=== PATIENT | male | born 1955 | race Caucasian/White ===

== ENCOUNTER → 2017-08-27 15:52 | Outpatient (CLI) | payer OTHER, SELFPAY ==
[2017-08-27 16:37] LABS: Absolute Lymphocyte Count 2.73 X10^3/ul (0.83-4.51); Absolute Neutrophil Count 5.7 X10^3/uL (2.0-7.7); Basophil# 0.03 X10^3/uL; Basophil% 0.3 % (0-1); Eosinophil# 0.18 X10^3/uL; Eosinophils% 1.9 % (0-5); Hematocrit 43.2 % (40-54); Hemoglobin 14.9 g/dl (13.0-16.5); Lymphocyte # 2.73 X10^3/ul (4.0); Lymphocyte % 29.2 % (19-41); Mean Corp Hgb Conc 34.5 g/gl (32-36); Mean Corpuscular Volume 98.6 fL (80-94); Mean Platelet Vol. 10.4 fl (6.2-12.0); Monocyte# 0.72 X10^3/uL; Monocyte% 7.7 % (0-10); Neutrophil # 5.66 X10^3/uL (2.7-7.7); Neutrophil % 60.6 % (47-70); Platelet Count 194 K/mm3 (150-450); RBC Distribution Width CV 12.8 % (11.6-14.6); RBC Distribution Width SD 46.3 fl (35.1-43.9); Red Blood Count 4.38 M/mm3 (4.6-6.2); White Blood Count 9.4 K/mm3 (4.4-11.0)
[2017-08-27 16:42] LABS: POSITIVE COUNT NO; POSITIVE DIFFERENTIAL NO; POSITIVE MORPHOLOGY NO
[2017-08-27 17:13] LABS: ALB/GLOB Ratio 0.9 RATIO (0.9-2.4); AST(SGOT) 21 U/L (15-37); Alanine Aminotransfer ALT/SGPT 33 U/L (16-61); Albumin, Serum 3.3 g/dL (3.2-5.0); Alkaline Phosphatase 111 U/L (45-117); Anion Gap 6 (5-15); BUN 14 mg/dL (7-18); BUN/Creat Ratio 15.3 RATIO (10-20); CRP 8.87 mg/L (0.0-3.0); Calcium,Total 8.5 mg/dL (8.5-10.1); Chloride 108 mmol/L (98-107); Cholesterol 227 mg/dL (200); Creatinine, Serum 0.92 mg/dL (0.70-1.30); EST Glomerular Filtration Rate 89 mL/min (>60); Est Glom Filt Rate - Afr Amer 107 mL/min (>60); Globulin 3.6 g/dL (2.2-4.2); Glucose 82 mg/dL (74-106); High Density Lipoprotein 44 mg/dL; Lipase 81 U/L (73-393); Potassium 3.5 mmol/L (3.5-5.1); Protein, Total 6.9 g/dL (6.4-8.2); Sodium Level 141 mmol/L (136-145); Triglycerides 108 mg/dL; Very Low Density Lipoprotein 22 mg/dL (5-40)
== END ==
PROVIDERS: Family Provider Family Medicine; PCP Family Medicine; Visit Provider Family Medicine
DX: R10.13 Epigastric pain (principal); Z71.3 Dietary counseling and surveillance
CPT/HCPCS: 36415; 80053; 80061; 83690; 85025; 86140

== ENCOUNTER 2018-03-01 18:29 | Observation (INO) | payer OTHER, SELFPAY ==
[2018-03-01] VITALS (10 sets, daily range): BP systolic 102–133; BP diastolic 63–90; PULSE 70–76; RESP 18–23; TEMP 36.6–36.8; O2SAT 90–95; BMI 42.4; BMI 41.5; BMI 41.6
--- NOTE | 2018-03-01 18:45 | CT_ITS ---
CT/Spine Cervical without Contras IMPRESSION: 1. No evidence of cervical trauma. 2. Mild to moderate canal stenosis from C3-4 through C5-6. 3. Moderate to severe foraminal stenosis from C2-3 through C5-6. Electronically Signed: Joann Bass MD at 20:14 EDT Tel , Service support ,
[2018-03-01] MEDS: 0.9% Normal Saline 1,000 ML 999 ML IV ×2 (19:02→20:04)
[2018-03-01 19:03] LABS: Absolute Lymphocyte Count 2.64 X10^3/ul (0.83-4.51); Absolute Neutrophil Count 5.5 X10^3/uL (2.0-7.7); Basophil# 0.04 X10^3/uL; Basophil% 0.4 % (0-1); Eosinophils% 2.2 % (0-5); Hematocrit 41.6 % (40-54); Hemoglobin 14.7 g/dl (13.0-16.5); Lymphocyte # 2.64 X10^3/ul (4.0); Lymphocyte % 28.8 % (19-41); Mean Corp Hgb Conc 35.3 g/gl (32-36); Mean Corpuscular Hgb 35.2 pg (27.0-32.0); Mean Corpuscular Volume 99.5 fL (80-94); Mean Platelet Vol. 9.2 fl (6.2-12.0); Monocyte# 0.73 X10^3/uL; Neutrophil # 5.53 X10^3/uL (2.7-7.7); Neutrophil % 60.2 % (47-70); Platelet Count 189 K/mm3 (150-450); RBC Distribution Width CV 13.2 % (11.6-14.6); RBC Distribution Width SD 47.2 fl (35.1-43.9); Red Blood Count 4.18 M/mm3 (4.6-6.2); White Blood Count 9.2 K/mm3 (4.4-11.0)
[2018-03-01 19:09] LABS: POSITIVE COUNT NO; POSITIVE DIFFERENTIAL NO; POSITIVE MORPHOLOGY NO
[2018-03-01 19:15] LABS: Anion Gap 14 (5-15); BUN 18 mg/dL (7-18); BUN/Creat Ratio 15.1 RATIO (10-20); Calcium,Total 8.1 mg/dL (8.5-10.1); Chloride 103 mmol/L (98-107); Creatinine, Serum 1.19 mg/dL (0.70-1.30); EST Glomerular Filtration Rate 66 mL/min (>60); Est Glom Filt Rate - Afr Amer 79 mL/min (>60); Estimated Creatinine Clearance 67.67 ml/min; Glucose 101 mg/dL (74-106); Potassium 3.2 mmol/L (3.5-5.1); Sodium Level 140 mmol/L (136-145)
--- NOTE | 2018-03-01 20:40 | PCM.HP.STD ---
Problem List (1) Alcohol intoxication Status: Acute Qualifiers: Complication of substance-induced condition: with unspecified complication Qualified Code(s): F10.929 - Alcohol use, unspecified with intoxication, unspecified (2) Fall Status: Acute Qualifiers: Encounter type: initial encounter Qualified Code(s): W19.XXXA - Unspecified fall, initial encounter (3) ETOH abuse Status: Chronic (4) Tobacco use Status: Chronic (5) HTN (hypertension) Status: Chronic Qualifiers: Hypertension type: essential hypertension Qualified Code(s): I10 - Essential (primary) hypertension (6) HLD (hyperlipidemia) Status: Chronic Qualifiers: Hyperlipidemia type: pure hypercholesterolemia Qualified Code(s): E78.00 - Pure hypercholesterolemia, unspecified; E78.0 - Pure hypercholesterolemia (7) Morbid obesity Status: Chronic (8) COPD (chronic obstructive pulmonary disease) Status: Suspected Qualifiers: COPD type: unspecified COPD Qualified Code(s): J44.9 - Chronic obstructive pulmonary disease, unspecified (9) JUSTEN (obstructive sleep apnea) Status: Chronic History of Present Illness Date of Admission: 03/01/18 Chief Complaint: Fall while inebriated The patient is a 62 y/o M w/ PMHx: Morbid Obesity, HTN, HLD, Tobacco use, EtOH Abuse who presents to the [facility] ED on 03/01/18 following mechanical fall while attempting to enter his home following notable mixed drink EtOH intake with trauma to face secondary to fall. He does not recall specific events or the moment of passing out. He notes he is normally very active and works outside despite recent heat. He notes also going to the gym nearly daily to use the machines and lift weights. In the ED work-up included T 97.9, heart rate 73, BP 102/71, respiratory rate 20, 92% on room air, CBC unremarkable, BMP with potassium 3.2, troponin less than 0.015, CT brain with no acute intracranial findings, fluid in the right maxillary sinus consistent with ? occult facial fracture or acute sinusitis, evidence chronic sinusitis, T cervical spine with no evidence of cervical trauma, mild to moderate canal stenosis C3-4 through C5-C6, moderate to severe foraminal stenosis C2-3 and C5-6, chest x-ray with no acute process. In ED patient insert normal saline, DuoNeb. Discussed with ED physician and pending EtOH level and UDS. Patient with no facial pain at ? facial fracture and does admit to notable sinus issues chronically. Family notes concerns that he may have passed out versus mechanical fall. Past Medical History Past Medical History (Chronic Problems): Chronic Problems ETOH abuse (Chronic) Tobacco use (Chronic) HTN (hypertension) (Chronic) HLD (hyperlipidemia) (Chronic) Morbid obesity (Chronic) JUSTEN (obstructive sleep apnea) (Chronic) Allergies No Known Allergies Allergy (Verified 03/01/18 18:29) Home Medications: Ambulatory Orders Medication Instructions Recorded Nebivolol HCl [Bystolic (Beta 10 mg PO DAILY 03/02/16 Ag)] Olmesartan/Hydrochlorothiazide 1 tab PO DAILY 03/02/16 [Benicar Hct 40-25 MG Tablet] Pravastatin [Pravachol] 80 mg PO DAILY 03/02/16 Surgical History: - - Cholecystectomy, left knee arthroscopic surgery. Psychiatric History: No pertinent psych hx Lives: Spouse/ Significant Other Smoking Status: Current every day smoker - 1 pack per day since teenager. Tobacco Use: Cigarettes Alcohol: Heavy - Patient notes weekend drinking Sunday through Sunday with at least 6 larger heavy mixed drinks per day. Drugs: None - *Family History Maternal History Items: No pertinent history Paternal History Items: Cancer - Father with history of colon cancer. Review of Systems Constitutional: Reports: Fatigue. Denies: Chills, Fever, Weight Change HEENT: Denies: Head Aches, Sinus Congestion, Sinus Drainage Cardiovascular: Reports: Syncope. Denies: Chest Pain, Chest Pressure, Chest Tightness, Light Headedness, Palpitations Respiratory: Denies: Cough, Shortness of Breath, Shortness of breath at rest, Shortness of breath upon exertion, Sputum production Gastrointestinal: Denies: Abdominal Pain, Nausea, Vomiting Genitourinary: Denies: Dysuria Musculoskeletal: Reports: Back Pain. Denies: Joint Pain, Joint Tenderness Skin: Denies: Rash, Wounds Neurological: Denies: Numbness, Tingling, Focal weakness Psychiatric: Denies: Anxiety, Depression, Homicidal Ideations, Suicidal Ideations Hematologic/ Lymphatic: Denies: Easy Bruising, Easy Bleeding VTE Information - Inpt Only VTE Present on Admission: No VTE Mechan Device Prophylaxis: SCD's VTE Pharm Prophylaxis ordered?: Yes Patient Problems: Active and Suspected Problems Alcohol intoxication (Acute) Fall (Acute) COPD (chronic obstructive pulmonary disease) (Suspected) Subjective: Seated upright in the ED bed, no acute distress, denies any facial discomfort. Objective: Physical Examination: General: awake, alert, oriented x 3 despite intoxication, cooperative, seated upright in the ED bed in no apparent distress. Skin: normal color, turgor, no icterus, cyanosis. HEENT: AT/NC, EOMI, PERRLA, mildly dry MM, no carotid bruits or JVD noted. Lungs: Diffusely diminished BS, > BL bases, mild effort, no rales, ronchi or wheezing. Heart: Regular rate and rhythm; no gallop, rub audible. Abdomen: soft, morbidly obese, ventral hernia present, NTTP, ND, normal BS, unable to discern HSM secondary to habitus. Extremities: no cyanosis, clubbing, mild BL ankle edema, non-pitting. Neurological: patient awake, alert, oriented x 3; cognitive function despite intoxication appears intact; pupils equally reactive to light and accomodation; cranial nerves II-XII grossly normal, moving all 4 extremities, no focal deficits, strength mildly globally decreased. Psychiatric: affect appears fatigued, flushed appearance, no acute evidence of depressive or anxiety feelings. - Physical Exam Vital Signs Temp Pulse Resp BP Pulse Ox 97.9 F 74 19 H 116/90 H 93 03/01/18 18:29 03/01/18 20:28 03/01/18 20:28 03/01/18 20:28 03/01/18 20:28 Oxygen Flow Rate (L/min) 2 Oxygen Delivery Method Nasal Cannula Weight: 304 lb 3.806 oz Body Mass Index (BMI) 42.4 Laboratory Tests Past 24 Hrs 03/01/18 03/01/18 18:52 18:52 WBC 9.2 RBC 4.18 L Hgb 14.7 Hct 41.6 MCV 99.5 H MCH 35.2 H MCHC 35.3 RDW 13.2 RDW Differential 47.2 H Plt Count 189 MPV 9.2 Immature Gran % (Auto) 0.400 Neut % (Auto) 60.2 Lymph % (Auto) 28.8 [place] % (Auto) 8.0 Eos % (Auto) 2.2 Baso % (Auto) 0.4 Absolute Neuts (auto) 5.5 Absolute Lymphs (auto) 2.64 Total Counted Not Reportable Sodium 140 Potassium 3.2 L Chloride 103 Carbon Dioxide 23.0 Anion Gap 14 BUN 18 Creatinine 1.19 Estim Creat Clear Calc 67.67 Est GFR (MDRD) Af Amer 79 Est GFR (MDRD) Non-Af 66 BUN/Creatinine Ratio 15.1 Glucose 101 Calcium 8.1 L Troponin I < 0.015 Assessment/Plan All Active Problems Alcohol intoxication (Acute) Fall (Acute) The patient is a 62 y/o M w/ PMHx: Morbid Obesity, HTN, HLD, Tobacco use, EtOH Abuse who presents to the [facility] ED on 03/01/18 following mechanical fall while attempting to enter his home following notable mixed drink EtOH intake with trauma to face secondary to fall. (1) Mechanical Fall, ? Syncopal Event but Concurrent Heavy EtOH Recent Intake: Suspect likely given reported heavy EtOH, tripped with mechanical fall versus passed out. EKG without acute findings, trop normal x 1, CXR not marked. CT head and CT neck without any acute findings aside ? facial fracture but no pain w. palpation. Requested ED to obtain EtOH level and UDS. ED noting concerns for possible etiology for ? syncopal event and requested observation overnight. Will admit to [place], place on a monitored bed, cycle enzymes and repeat AM EKG although less suspicion for cardiac etiology given presentation history, aggressively hydrate, await EtOH level and UDS, maintain on fall precautions, obtain mag and phos levels and supplement as needed. Will place on CIWA for when improved from current intoxication, maintain on MVI, thiamine and folic acid. SW/CM consultation once improved for substance abuse assist. (2) Mild Hypotension: Noted upon admission, immediately improved w/ IVFs, suspect mild dehydration, heat exposure coupled with heavy recent EtOH intoxication, continue to hydrate, hold BP regimen until AM. (3) Suspected Underlying Chronic COPD: Oxygenation low normal in the ED, recent heavy EtOH intake w/ morbid obesity and underlying JUSTEN as etiology although possible underlying COPD with tobacco use history. Maintain on ATC duoneb, PRN albuterol. (4) Hypokalemia: Admission K+ 3.2, supplementation given, repeat level in AM. (5) Morbid Obesity: Weight loss and lifestyle changes encouraged, nutrition consulted. (6) Hyperlipidemia: Continue home statin regimen. (7) Hypertension: Holding regimen, monitor BPs, restart once appropriate given presentation w/ low normal BP in the ED. (8) JUSTEN: CPAP q HS. (9) DVT Prophylaxis: SCDs, defer chemoprophylaxis given possible facial fracture although as noted lower suspicion given NTTP; however, notably intoxicated, re-examination in AM may yield altered results. Code Visit OBSV E&M: 06825 Initial observation care L3
[2018-03-01] MEDS: Ipratropium/Albuterol Sulfate 3 ML AMPUL.NEB INHALATION (20:58)
--- NOTE | 2018-03-01 21:09 | ED.DCSUM_ITS ---
- ER Visit Summary Date of Service: 03/01/18 Chief Complaint: Fall History of Present Illness: The patient is a 62 M who presents after a fall at home. The patient drank 6 mixed drinks. His heard him fall, but did not witness it. Patient does not recall the fall. He was feeling well before the fall. His found him on the ground and thinks he was unconscious for up to 4 minutes. She had difficulty waking him up and called 911. The patient remembers being transported to the hospital. He said this never happened before. He has been well recently. He does drink and smoke regularly. He also has a history of hypertension and hyperlipidemia. Denies any heart or lung disease. Denies history of PE. He does not take blood thinners. Denies weakness or numbness. Denies history of seizures. Denies loss of bowel or bladder. Physical Examination: Blood pressure 102/71. Afebrile. Heart rate 73 and respiratory rate 20. Pulse ox 90% on room air. Heart regular rate and rhythm. Lungs show diminished sounds throughout all addison. No acute distress, sitting comfortably. Abdomen soft and nontender. Extremities atraumatic and nontender. Head and neck normal inspection. Nontender. Cranial nerves grossly intact. No focal or lateralizing neurologic abnormalities grossly. Test Results: EKG showed sinus rhythm at a rate of 73. No sign of acute ischemia or infarction pattern. Chest x-ray showed no acute abnormality. CT brain and C-spine showed no intracranial changes. He does have right maxillary fluid concerning for fracture versus sinusitis. Patient has no tenderness, so I suspect he has sinusitis. He has been dealing with sinus symptoms recently. C-spine was unremarkable. Chronic changes only. CBC and BMP unremarkable except for a potassium of 3.2. Troponin normal. Emergency Department Course and Treatment: Patient was placed on a monitor. Treated with a DuoNeb. He had no further symptoms or loss of consciousness. His workup as above was fairly unremarkable. He did have a transient hypotension which resolved with IV fluids. Patient reports no history of hypotension. Patient has a pulse ox of 90% which improved with 2 L nasal cannula. Patient denies any history of lung disease. His lung sounds were fairly quiet. He was treated with a DuoNeb. He does not have chest pain. No history of ACS or PE. Patient was discussed with the hospitalist who will admit for further care. She did request a urine drug screen and alcohol level. Results are pending at the time of this dictation. Treatment Plan: As above Disposition: Admission Impression: 1. Syncope This note was generated with [employer] dictation software. It may contain incorrect words, spelling, and punctuation that were not noted in review of the chart prior to signing ED Disposition - Plan for ED Patient: Chief Complaint: Fall
[2018-03-01 21:59] LABS: Magnesium 2.1 mg/dL (1.6-2.6); Phosphorus 3.5 mg/dL (2.5-4.9)
[2018-03-01] MEDS: Famotidine 20 MG Tablet PO (22:29)
[2018-03-01 22:45] LABS: Amphetamine Urine VISTA NEGATIVE (<1000 ng/mL); Barbiturate Urine VISTA NEGATIVE (< 200 ng/mL); Benzodiazepine Urine VISTA NEGATIVE (< 200 ng/mL); Cocaine Urine VISTA NEGATIVE (< 300 ng/mL); Ecstacy Urine VISTA NEGATIVE (< 500 ng/mL); Methadone Urine VISTA NEGATIVE (< 300 ng/mL); PCP Urine VISTA NEGATIVE (< 25 ng/mL); THC Urine VISTA NEGATIVE (< 50 ng/mL); Vista UDS pH Range 6
[2018-03-01] MEDS: 0.9% Normal Saline 1,000 ML 150 ML IV (23:51)
[2018-03-02 03:15] VITALS: BP 143/75; PULSE 40; PULSE 73; RESP 18; TEMP 37; O2SAT 95
[2018-03-02 03:38] VITALS: PULSE 85
[2018-03-02 04:33] LABS: Absolute Lymphocyte Count 2.35 X10^3/ul (0.83-4.51); Absolute Neutrophil Count 7.1 X10^3/uL (2.0-7.7); Basophil# 0.05 X10^3/uL; Basophil% 0.5 % (0-1); Eosinophil# 0.18 X10^3/uL; Eosinophils% 1.7 % (0-5); Hematocrit 43.7 % (40-54); Hemoglobin 14.6 g/dl (13.0-16.5); Lymphocyte # 2.35 X10^3/ul (4.0); Lymphocyte % 22.7 % (19-41); Mean Corp Hgb Conc 33.4 g/gl (32-36); Mean Corpuscular Hgb 35.1 pg (27.0-32.0); Mean Platelet Vol. 9.3 fl (6.2-12.0); Monocyte# 0.67 X10^3/uL; Monocyte% 6.5 % (0-10); Neutrophil # 7.09 X10^3/uL (2.7-7.7); Neutrophil % 68.3 % (47-70); Platelet Count 167 K/mm3 (150-450); RBC Distribution Width CV 13.8 % (11.6-14.6); RBC Distribution Width SD 52.6 fl (35.1-43.9); Red Blood Count 4.16 M/mm3 (4.6-6.2); White Blood Count 10.4 K/mm3 (4.4-11.0)
[2018-03-02 04:34] LABS: POSITIVE COUNT NO; POSITIVE DIFFERENTIAL NO; POSITIVE MORPHOLOGY NO
[2018-03-02 05:04] LABS: Anion Gap 11 (5-15); BUN 14 mg/dL (7-18); BUN/Creat Ratio 16.9 RATIO (10-20); Calcium,Total 7.6 mg/dL (8.5-10.1); Chloride 114 mmol/L (98-107); Creatinine, Serum 0.83 mg/dL (0.70-1.30); EST Glomerular Filtration Rate 100 mL/min (>60); Est Glom Filt Rate - Afr Amer 121 mL/min (>60); Estimated Creatinine Clearance 97.02 ml/min; Glucose 77 mg/dL (74-106); Potassium 4.1 mmol/L (3.5-5.1); Sodium Level 144 mmol/L (136-145)
[2018-03-02] MEDS: 0.9% Normal Saline 1,000 ML 150 ML IV (05:59)
[2018-03-02 06:47] VITALS: PULSE 84; RESP 20; O2SAT 96
[2018-03-02] MEDS: Ipratropium/Albuterol Sulfate 3 ML AMPUL.NEB INHALATION (06:47)
[2018-03-02 07:17] VITALS: PULSE 85
[2018-03-02 07:49] VITALS: BP 145/75; PULSE 79; RESP 20; TEMP 36.8; O2SAT 98
[2018-03-02] MEDS: Thiamine Hydrochloride 100 MG Tablet PO (07:52)
[2018-03-02] MEDS: Multivitamins,Ther W-Minerals Tablet 1 TABLET PO (07:52)
[2018-03-02] MEDS: Famotidine 20 MG Tablet PO (07:52)
[2018-03-02] MEDS: Folic Acid 1 MG Tablet PO (07:52)
--- NOTE | 2018-03-02 08:17 | CASEMGMT ---
As per admitting RN, pt refused to bring in POA or LW forms.
--- NOTE | 2018-03-02 10:41 | CASEMGMT ---
SW spoke w/pt and pt's briefly in room regarding alcohol use, referral received for substance abuse. SW asked pt about pt's alcohol consumption. Pt and both deny that pt has any issue with alcohol. states, it was Sunday night! Pt states he is independent at home, no homegoing needs. Pt is stating that he would like to go home today. SW explained will let physician know. Otherwise, no homegoing needs anticipated, pt denies any issue with alcohol as does . SW will page physician. BETSY Rodriguez, WATCHGUARD
--- NOTE | 2018-03-02 11:39 | PCM.DC ---
- Discharge Diagnoses Current Active Problems: Current Active and Chronic Problems Alcohol intoxication (Acute) Fall (Acute) ETOH abuse (Chronic) Tobacco use (Chronic) HTN (hypertension) (Chronic) HLD (hyperlipidemia) (Chronic) Morbid obesity (Chronic) JUSTEN (obstructive sleep apnea) (Chronic) You will use the following diet at home:: No restrictions, Regular Discharge Activity: Return to Normal Activity, No Restrictions Additional Instructions: drink alcohol in moderation Allergies/Adverse Reactions: Allergies No Known Allergies Allergy (Verified 03/01/18 18:29) Medications to take at Discharge Nebivolol HCl [Bystolic (Beta Ag)] 10 mg PO DAILY 03/02/16 Olmesartan/Hydrochlorothiazide [Benicar Hct 40-25 MG Tablet] 1 tab PO DAILY 03/02/16 Pravastatin [Pravachol] 80 mg PO DAILY 03/02/16 Thiamine HCl [Vitamin B-1] 100 mg PO DAILY #30 tab 03/02/18 The following prescriptions were given: Thiamine HCl [Vitamin B-1] 100 mg PO DAILY #30 tab Primary Care Physician: Saturnino Wilson MD [Primary Care Provider] - Test Results: Test results from this visit will be discussed in further detail at your follow-up appointment, if applicable. Proposed Discharge Date: 03/02/18
--- NOTE | 2018-03-02 11:42 | PCM.DC.SUM ---
Discharge Date and Diagnosis - Problem List Patient Problems: Active and Suspected Problems Alcohol intoxication (Acute) Fall (Acute) COPD (chronic obstructive pulmonary disease) (Suspected) Date of Admission: 03/01/18 Date of Discharge: 03/02/18 - Primary Discharge Diagnosis Active and Suspected Problems Alcohol intoxication (Acute) Fall (Acute) COPD (chronic obstructive pulmonary disease) (Suspected) - Secondary Discharge Diagnosis Chronic Problems ETOH abuse (Chronic) Tobacco use (Chronic) HTN (hypertension) (Chronic) HLD (hyperlipidemia) (Chronic) Morbid obesity (Chronic) JUSTEN (obstructive sleep apnea) (Chronic) Hospital Course and Treatment Operations: None Procedures: None Summary of Care Provided: The patient is a 62 year old M admitted to the hospital following and fall and/or passing out while intoxicated with alcohol. Alcohol blood level on presentation was 210mg/dl Today patient is no longer intoxicated, is doing fairly well and is quite anxious to go home Ok for discharge Cellophaner on alcohol use with moderation [] Discharge Activity: Return to Normal Activity, No Restrictions Home Medications: Medications to take at Discharge Nebivolol HCl [Bystolic (Beta Ag)] 10 mg PO DAILY 03/02/16 Olmesartan/Hydrochlorothiazide [Benicar Hct 40-25 MG Tablet] 1 tab PO DAILY 03/02/16 Pravastatin [Pravachol] 80 mg PO DAILY 03/02/16 Thiamine HCl [Vitamin B-1] 100 mg PO DAILY #30 tab 03/02/18 Following Prescrptions Were Given to Patient: Thiamine HCl [Vitamin B-1] 100 mg PO DAILY #30 tab Primary Care Physician: Saturnino Wilson MD [Primary Care Provider] - Medical Necessity - Tobacco Use Smoking Status: Current every day smoker Tobacco Use: Cigarettes Meaningful Use Info Meaningful Use Diagnoses (Choose all that apply): None applicable Code Visit OBSV E&M: 06812 Observation care discharge
[2018-03-02 11:46] VITALS: PULSE 70
== END 2018-03-02 12:08 | disposition home or self-care (01) ==
LOC: ED 18:49 → MS3 21:06
PROVIDERS: Admitting Provider Family Medicine; Emergency Provider Emergency Medicine; Family Provider Family Medicine; PCP Family Medicine; Visit Provider Internal Medicine
DX: F10.129 Alcohol abuse with intoxication, unspecified (principal); Y90.7 Blood alcohol level of 200-239 mg/100 ml; I10 Essential (primary) hypertension; E78.5 Hyperlipidemia, unspecified; E66.01 Morbid (severe) obesity due to excess calories; Z68.41 Body mass index [BMI] 40.0-44.9, adult; Z71.3 Dietary counseling and surveillance; G47.33 Obstructive sleep apnea (adult) (pediatric); F17.210 Nicotine dependence, cigarettes, uncomplicated; I95.9 Hypotension, unspecified; E87.6 Hypokalemia; Z91.81 History of falling; Z79.899 Other long term (current) drug therapy
CPT/HCPCS: 36415; 70450; 71045; 72125; 80048; 80307; 80320; 83735; 84100; 84484; 85025; 93005; 94640; 96360; 96361; 97802; 99218; 99285; J7030; A4216; G0378; G0480

== ENCOUNTER → 2018-03-06 12:01 | Outpatient (CLI) | payer OTHER, SELFPAY ==
[2018-03-06 15:03] LABS: Anion Gap 9 (5-15); BUN 15 mg/dL (7-18); BUN/Creat Ratio 16.3 RATIO (10-20); Calcium,Total 8.7 mg/dL (8.5-10.1); Chloride 106 mmol/L (98-107); Creatinine, Serum 0.92 mg/dL (0.70-1.30); EST Glomerular Filtration Rate 88 mL/min (>60); Est Glom Filt Rate - Afr Amer 106 mL/min (>60); Glucose 98 mg/dL (74-106); Potassium 3.7 mmol/L (3.5-5.1); Sodium Level 137 mmol/L (136-145)
== END ==
PROVIDERS: Family Provider Family Medicine; PCP Family Medicine; Visit Provider Family Medicine
DX: E87.6 Hypokalemia (principal)
CPT/HCPCS: 36415; 80048; 83735

== ENCOUNTER → 2018-06-14 09:18 | Outpatient (CLI) | payer OTHER, SELFPAY ==
[2018-03-01 21:21] VITALS: BMI 41.5
[2018-06-14 10:14] LABS: Absolute Lymphocyte Count 1.87 X10^3/ul (0.83-4.51); Absolute Neutrophil Count 6.4 X10^3/uL (2.0-7.7); Basophil# 0.05 X10^3/uL; Basophil% 0.5 % (0-1); Eosinophil# 0.16 X10^3/uL; Eosinophils% 1.7 % (0-5); Hematocrit 47.9 % (40-54); Lymphocyte # 1.87 X10^3/ul (4.0); Lymphocyte % 20.1 % (19-41); Mean Corp Hgb Conc 33.4 g/gl (32-36); Mean Corpuscular Hgb 33.7 pg (27.0-32.0); Mean Corpuscular Volume 100.8 fL (80-94); Monocyte# 0.82 X10^3/uL; Monocyte% 8.8 % (0-10); Neutrophil # 6.37 X10^3/uL (2.7-7.7); Neutrophil % 68.6 % (47-70); Platelet Count 194 K/mm3 (150-450); RBC Distribution Width CV 12.6 % (11.6-14.6); RBC Distribution Width SD 46.8 fl (35.1-43.9); Red Blood Count 4.75 M/mm3 (4.6-6.2); White Blood Count 9.3 K/mm3 (4.4-11.0)
[2018-06-14 10:15] LABS: POSITIVE COUNT NO; POSITIVE DIFFERENTIAL NO; POSITIVE MORPHOLOGY NO
[2018-06-14 10:42] LABS: ALB/GLOB Ratio 1.1 RATIO (0.9-2.4); AST(SGOT) 18 U/L (15-37); Alanine Aminotransfer ALT/SGPT 31 U/L (16-61); Albumin, Serum 3.7 g/dL (3.2-5.0); Alkaline Phosphatase 114 U/L (45-117); Anion Gap 8 (5-15); BUN 22 mg/dL (7-18); BUN/Creat Ratio 22.3 RATIO (10-20); Calcium,Total 8.9 mg/dL (8.5-10.1); Chloride 106 mmol/L (98-107); Creatinine, Serum 0.99 mg/dL (0.70-1.30); EST Glomerular Filtration Rate 81 mL/min (>60); Est Glom Filt Rate - Afr Amer 98 mL/min (>60); Globulin 3.3 g/dL (2.2-4.2); Glucose 97 mg/dL (74-106); Sodium Level 142 mmol/L (136-145)
--- OUTSIDE RECORDS SUMMARY | 2018-07-30 22:33 | XMS RPT_ITS ---
:1955 Author Organization OHIP Support Name Relationship Address Phone KAREN DESAI Unavailable [address] + [place] [address] R Unavailable Unavailable Unavailable DESAI, KAREN Unavailable [address] + [place] [address] R Unavailable Unavailable Unavailable DESAI, KAREN Unavailable [address] + [place] [address] R Unavailable Unavailable Unavailable DESAI, KAREN Unavailable [address] + [place] [address] R Unavailable Unavailable Unavailable DESAI, KAREN Unavailable [address] + [place] [address] R Unavailable Unavailable Unavailable DESAI, KAREN Unavailable [address] + [place] [address] R Unavailable Unavailable Unavailable DESAI, KAREN Unavailable [address] + [place] [address] R Unavailable Unavailable Unavailable DESAI, KAREN Unavailable [address] + [place] [address] R Unavailable Unavailable Unavailable DESAI, KAREN Unavailable [address] + [place] [address] R Unavailable Unavailable Unavailable DESAI, KAREN Unavailable [address] + [place] [address] R Unavailable Unavailable Unavailable DESAI, KAREN Unavailable [address] + [place] [address] R Unavailable Unavailable Unavailable DESAI, KAREN Unavailable [address] + [place] [address] R Unavailable Unavailable Unavailable Care Team Providers Name Role Phone Saturnino Wilson Attending Unavailable Saturnino Wilson Primary Care Unavailable Saturnino Wilson Attending Unavailable Saturnino Wilson Primary Care Unavailable Saturnino Wilson Attending Unavailable Saturnino Wilson Referring Unavailable Wilson, Saturnino Primary Care Unavailable Wilson, Saturnino Primary Care Unavailable Gil Edmond Attending Unavailable Nurse, Surgery Attending Unavailable Wilson, Saturnino Referring Unavailable Catarino Herbert Attending Unavailable Wilson, Saturnino Referring Unavailable Wilson, Saturnino Attending Unavailable Wilson, Saturnino Primary Care Unavailable Wilson, Saturnino Primary Care Unavailable White, Juliann Admitting Unavailable Oleghe, Ifijen Attending Unavailable White, Juliann Admitting Unavailable White, Juliann Attending Unavailable Wilson, Saturnino Primary Care Unavailable White, Juliann Consulting Unavailable White, Juliann Admitting Unavailable Wilson, Saturnino Primary Care Unavailable Oleghe, Ifijen Consulting Unavailable Lillian Kaufman Attending Unavailable Wilson, Saturnino Attending Unavailable Wilson, Saturnino Primary Care Unavailable Moodena, Brandon Attending Unavailable White, Juliann Referring Unavailable PROBLEMS PROBLEMS DATE TYPE CONDITION / CODE ATTENDING STATUS SOURCE 03/06/2018 Unknown E87.6 - Hypokalemia / Saturnino Wilson Active [place] E87.6(ICD-10) [facility] Repository 04/09/2018 Unknown R94.31 - Abnormal [place], Active [place] electrocardiogram [facility] [ECG] [EKG] / Hospital R94.31(ICD-10) Repository 04/09/2018 Unknown I10 - Essential [place], Active [place] (primary) hypertension [facility] / I10(ICD-10) Hospital Repository 04/09/2018 Unknown R55 - Syncope and [place], Active [place] collapse / R55(ICD-10) [facility] Repository PROCEDURES PROCEDURES No Procedure Records FoundRESULTS RESULTS SURGERY VISIT REPORT Observed: 07/17/2018 Status: F Source: [place] 9:24 AM [facility] [address] [place] [address] [address] [place] [address] OFFICE VISIT Date of Service: 07/17/18 MR#: [id number] Acct: [id number] Name: LLOYDMAISHA J Rep #: [id number] : 1955 Provider: Catarino Herbert MD Age/Sex: 62/M Location: [facility] Status: Signed Intake Vital Signs07/17/18 Body Mass Index (BMI) 41.1 07/17/18 Height 5 ft 10 in 07/17/18 Weight: 302 lb 07/17/18 Body Mass Index (BMI) 43.3 Intake Visit Reasons: Umbilical Hernia AND Refulx Chief Complaint: Passed out per my Design Quality Engineer Required: No Is patient in pain?: No Allergies No Known Allergies Allergy (Verified 07/17/18 08:29) Medications Nebivolol HCl [Bystolic (Beta Ag)] 10 mg PO DAILY 03/02/16 [History Confirmed 07/17/18] Olmesartan/Hydrochlorothiazide [Benicar Hct 40-25 MG Tablet] 1 tab PO DAILY 03/02/16 [History Confirmed 07/17/18] Pravastatin [Pravachol] 80 mg PO DAILY 03/02/16 [History Confirmed 07/17/18] famotidine 40 mg tablet 40 mg PO DAILY 07/17/18 [History Confirmed 07/17/18] [facility] Medical History Alcohol intoxication (Acute) Fall (Acute) ETOH abuse (Chronic) Tobacco use (Chronic) HTN (hypertension) (Chronic) HLD (hyperlipidemia) (Chronic) Morbid obesity (Chronic) COPD (chronic obstructive pulmonary disease) (Suspected) JUSTEN (obstructive sleep apnea) (Chronic) Surgical History History of esophagogastroduodenoscopy (EGD) (Acute) S/P appendectomy (Acute) S/P colonoscopy (Acute) S/P laparoscopic cholecystectomy (Acute) Family History Father Colon cancer Grandmother Heart disease Social History Smoking Status: Current some day smoker alcohol intake: current alcohol intake frequency: a few times a week HPI HPI HPI: MAISHA DESAI, is a 62 M who presents to the office today for surgical consultation regarding severe epigastric pain and suspected escalating symptoms of reflux. He is currently on famotidine. Claims that remotely in the past he has had Nexium treatment. He states he has not had that for a period of time. He also had a recent CT scan done at the [facility] showing a small incisional umbilical hernia. March 09, 2016 for biliary dyskinesia and chronic cholecystitis I performed a laparoscopic cholecystectomy and cholangiogram. The patient states that this pain is different. It is of note that March 02, 2016 I performed a colonoscopy trying to evaluate right upper quadrant pain. A 2.5 similar sessile polyp of the proximal transverse colon was encountered as well as sigmoid and descending diverticulosis. Polypectomy was done as well as in the ink marking. The final pathology was fragments of tubular adenoma. It is of additional note that previously December 17, [address] Damon Gillespie the patient had an upper endoscopy. Apparently by report there was a nodule at the GE junction that Dr. Gillespie biopsied. This was felt to be consistent with reflux esophagitis focal mucosal ulceration with associated fibro-purulent material no fungal evidence no evidence of malignancy. On questioning the patient he states that he only smokes 3- 4 cigarettes/day. He states that he infrequently uses alcohol. There is report however of a CT of the chest and abdomen obtained July 08, 2018. No aneurysm or dissection of the aorta was identified. He previously July 2017 had imaging done at the [facility] because of a alcohol intoxicated fall. He states that he goes to [employer] 6 times per week. He claims that he is trying to lose weight. Current body habitus is 43.3 BMI at 302 pounds The patient is referred by his primary care physician Dr. Saturnino Wilson for surgical consultation regarding suspected intractable gastroesophageal reflux disease and a written copy of my surgical consult and recommendations will be returned to him. ROS General General: Yes weight change; no appetite, fatigue, colon cancer, breast cancer or weakness HEENT HEENT: Yes difficulty swallowing; no eye injury, eye surgery, swollen glands or hoarseness Endo Endocrine: No thyroid disease, diabetes mellitus, thyroid cancer, Hair loss, heat intolerance or cold intolerance Skin Skin: No rash or changing moles Breast Breast: No left breast lump, right breast lump, nipple discharge, breast pain, abnormal mammogram, abnormal US or breast enlargement Musc Musculoskeletal: Yes back problems; no arthritis, rheumatoid arthritis, gout or joint pain Cardio Cardiovascular: Yes high blood pressure; no murmur, pacemaker, heart disease, atrial fibrillation, heart attack, heart stent, palpitations, shortness of breat with exertion or chest pain Psych Psychiatric: No depression, anxiety or hearing voices Resp Respiratory: Yes shortness of breath, Yes sleep apnea, No cough, No COPD, No asthma, No emphysema, No wheezing Gastro Gastrointestinal: Yes abdominal pain, Yes nausea or vomiting, Yes diarrhea, Yes constipation, Yes acid reflux, Yes gallbladder problem, No blood in stool, No hemorrhoids, No ulcers, No black,tarry stools Maksim Hematologic: No blood thinners, No blood disorders, No bleeding, No anemia, No blood clots Neuro Neurologic: No system reviewed and no additional complaints, except as docu, No as per HPI, No abnormal walking, No abnormal hearing, No abnormal movements, No abnormal speech, No behavioral changes, No burning sensations, No confusion, No seizure-like activity, No unsteadiness, No dizziness, No localized weakness, No frequent falls, No headache(s), No lack of coordination, No loss of vision, No memory loss, No numbness, No other visual disturbances, No radiating pain, No restless legs, No sensory deficit, No fainting, No tingling, No tremor(s), No weakness, No other Exam Const General: cooperative, no acute distress Nutritional Appearance: obese morbidly obese Orientation: alert, awake, oriented x3 HENMT Head: normal to inspection Chest Breast Palpation: No nipple discharge Resp Effort AND Inspection: normal respiratory effort Auscultation: clear to auscultation bilaterally Cardio Rate: regular rate Rhythm: regular rhythm Heart Sounds: no murmurs GI Other: Markedly overweight with a very large abdomen. With the patient standing small defect cannot be palpated at his umbilical incision. Nontender. Reducible Skin Other: Mild facial blushing noted Neuro General: alert, awake, oriented x3 Psych Affect: normal affect Assessment AND Plan Problems 1. GERD with esophagitis K21.0 2. Personal history of colonic polyps Z86.010 Plan 62-year-old gentleman. 2016 he had an upper endoscopy done by Dr. Damon Gillespie demonstrating a nodule at the distal esophagus with biopsies consistent with severe reflux esophagitis. Although the patient currently is on famotidine he finds no relief. He states that he has tried additional antacids with no relief. He additionally has a history of a 2.5 cm proximal transverse colon tubular adenoma. That colonoscopy was March 2016. He is morbidly obese caring majority of his weight in his abdomen. He has a small recurrent ventral incisional hernia at the umbilicus related to a previous laparoscopic cholecystectomy. It is not symptomatic. I have reviewed his CT imaging and there is no bowel underneath. He likely has a large portion of the omentum beneath that area. It is not likely with his body habitus and tobacco use that a solid repair could be obtained. I am recommending weight loss and general health improvement. The patient states that his current alcohol consumption is minimal. I would have ongoing concerns. I recommend to him a esophagogastroduodenoscopy with possible biopsy with very careful inspection of the distal esophagus at the EG junction. I am recommending a colonoscopy with possible biopsy or polypectomy is indicated. I would anticipate performing this under monitored anesthesia care anticipating increased difficulty secondary to the suspected alcohol use. He has had an opting to ask and have questions answered. We will schedule and proceed as noted. I appreciate the ongoing opportunity of assisting with his surgical care. CC: Dr. Saturnino Herbert M.D., F.A.C.S. Coding Level of Care Code Detailed, Low Diagnoses GERD with esophagitis K21.0 Personal history of colonic polyps Z86.010 07/17/18923 <Electronically signed by Catarino Herbert MD> Date Catarino Herbert MD Cosigner Signature: Date (if applicable) CC: Saturnino Wilson MD 12 LEAD ELECTROCARDIOGRAM Observed: 07/10/2018 Status: F Source: [place] 2:35 PM [facility] Cardiovascular Services [address] [place] [address] 12 Lead EKG 07/08/18923 MR#: [id number] Acct: [id number] Name: MAISHA DESAI Rep #: [id number] : 1955 62 From: Brandon Simmons MD Attending Dr: Status: DEP ER Ordering Dr: Gil Edmond MD Date: 07/08/18 Location: ED Sex: M C Admitted: Test Reason : CP Blood Pressure : / mmHG Vent. Rate : 076 BPM Atrial Rate : 076 BPM P-R Int : 162 ms QRS Dur : 090 ms QT Int : 390 ms P-R-T Axes : 047 037 028 degrees QTc Int : 438 ms Normal sinus rhythm Nonspecific ST abnormality Abnormal ECG Confirmed by TROY BROWN, BRANDON ([id number]), makeup editor TOBI DESAI ([id number]) on 07/10/2018 2:34:52 PM Referred By: Saturnino Wilson Confirmed By:BRANDON SIMMONS MD 07/10/18 1434 Date Brandon Simmons MD CC: Gil Edmond MD; Saturnino iWlson MD Signed EMERGENCY DEPARTMENT Observed: 07/08/2018 Status: F Source: [place] SUMMARY 5:07 PM [facility] Medical Records Department [address] [place] [address] Emergency Department Summary 07/08/18 1145 MR#: [id number] Acct: [id number] Name: MAISHA DESAI Rep #: [id number] : 1955 62 From: Gil Edmond MD PCP: Saturnino Wilson MD Status: DEP ER - ER Visit Summary Date of Service: 07/08/18 Chief Complaint: Feel rough History of Present Illness: The patient is a 62 M who feels rough today. He says he has pain in his left shoulder that started today. He denies any chest pain or shortness of breath. He does have epigastric pain that has been going on for months. He had a prior CT which was unremarkable. He feels weak and nauseated. Denies diaphoresis. Patient has a history of a stress test about 2 years ago. He said it was normal. He does bicycle about 9 miles per day. He has felt weak and has not been able to bicycle today. He does have a history of COPD, hypertension, hyperlipidemia, and sleep apnea. Physical Examination: Blood pressure 177/102. Otherwise vitals unremarkable. 93% on room air. Alert and oriented. No acute distress. Heart regular rate and rhythm. Lungs clear. Abdomen soft and nontender. Extremities nontender with no edema. He has good range of motion. Neurovascular intact distally. Skin appears normal. Test Results: EKG showed sinus rhythm at a rate of 76. No sign of ischemia or infarction. CBC, CMP, hepatic panel, lipase unremarkable. Chest x-ray shows bibasilar atelectasis. Emergency Department Course and Treatment: Patient declined pain medicine here. He was treated with Zofran. He was monitored. No new or different symptoms. Patient has very atypical symptoms, but does have many risk factors for heart disease. He had a normal stress test. I advised that the complete workup would involve admission. Patient declined admission. He would like to follow-up with his doctor. Nothing consistent with PE or dissection. No infectious symptoms. No trauma. I suspect his shoulder pain is myofascial pain. No indication for further testing. On reevaluation, the patient said that he felt a pulsing in his epigastric area. He had prior calcifications in his aorta. CTA was performed. He has chronic changes and an enlarged thyroid but no aneurysm or dissection. He will be discharged to follow-up with his doctor. Treatment Plan: As above Disposition: Discharge Impression: 1. Epigastric pain 2. Left shoulder pain 3. Enlarged thyroid This note was generated with [employer] dictation software. It may contain incorrect words, spelling, and punctuation that were not noted in review of the chart prior to signing ED Disposition - Plan for ED Patient: Chief Complaint: Upper Extremity Injury Instructions: ED Epigastric Pain [facility] Referrals: Saturnino Wilson MD [Primary Care Provider] - What to do if you have Problems For any increased pain, shortness of breath, bleeding, nausea or vomiting, chest pain, or any unexpected problems, contact your Primary Care Provider. Call [facility] ([phone]) or report to the closest Emergency Room. Call 911 if necessary. 07/08/18 7714 <Electronically signed by Gil Edmond MD> Date Gil Edmond MD Cosigner Signature (If Indicated): Date CC: Saturnino Wilson MD DISCHARGE INSTRUCTION Observed: 07/08/2018 Status: F Source: [place] 5:07 PM [facility] Medical Records Department [address] [place] [address] [place] [address] Discharge Instruction 07/08/18 1150 MR#: [id number] Acct: [id number] Name: MAISHA DESAI Rep #: [id number] : 1955 62 From: Gil Edmond MD PCP: Saturnino Wilson MD Status: [facility] ER ED Disposition - Plan for ED Patient: Chief Complaint: Upper Extremity Injury Instructions: ED Epigastric Pain [facility] Referrals: Saturnino Wilson MD [Primary Care Provider] - What to do if you have Problems For any increased pain, shortness of breath, bleeding, nausea or vomiting, chest pain, or any unexpected problems, contact your Primary Care Provider. Call [facility] ([phone]) or report to the closest Emergency Room. Call 911 if necessary. 07/08/18 1707 <Electronically signed by Gil Edmond MD> Date Gil Edmond MD Cosigner Signature (If Indicated): Date CC: Saturnino Wilson MD CTA ABDOMEN W/WO Observed: 07/08/2018 Status: F Source: [place] CONTRAST 11:56 AM [facility] Imaging Services [address] [place] [address] CTA Abdomen W/WO Contrast MR#: [id number] Acct: [id number] Name: MAISHA DESAI Rep #: [id number] : 1955 M 62 From: Gianluca Vila MD PCP: Saturnino Wilson MD Status: [facility] ER Study: CTA Abdomen W/WO Contrast Date of Exam: 07/08/18 Exam# [id number] Ordering Dr: Gil Edmond MD STUDY: CTA OF THE ABDOMINAL AORTA REASON FOR EXAM: Male, 62 years old. History of abdominal aortic aneurysm. The patient presents with left shoulder pain and epigastric pain. RADIATION DOSAGE (If Supplied By Facility): CTDIvol = ( 38.91 ) mGy, DLP = ( 1674.58 ) mGycm TECHNIQUE: Axial CT angiography multi-detector data acquisition was obtained from the dome of the liver to the symphysis pubis following intravenous administration of 100 ml of Isovue 370 contrast. Axial images and MIP images were reconstructed from the axial data set. Post-processing of the angiographic images was performed, with multiplanar reformation and 3D reconstruction. Individualized dose optimization techniques were used for this CT. TECHNICAL QUALITY: Good COMPARISON: None. Descriptors of Narrowing: None (0%) Mild (< 50%) Moderate (50-70%) Severe (70-90%) Subtotal/Total Occlusion (90-100%) Non-Evaluable (technically non-diagnostic FINDINGS: Abdominal aorta: Atherosclerotic plaque formation of the abdominal aorta. There is no evidence of aneurysmal formation. No evidence of a dissection. Nonstenotic calcified plaques at the origins of the celiac artery and superior mesenteric artery. The patient is status post cholecystectomy. Small retroperitoneal lymph nodes. Small umbilical hernia. Degenerative disc disease of the lumbar spine. CT/CTA Abdomen W/WO Contrast IMPRESSION: Scattered calcification of the abdominal aorta with no evidence of aneurysm formation. Electronically Signed: Gianluca Vila MD at 12:42 EST Tel [phone], Service support , CC: Gil Edmond MD; Saturnino Wilson MD Production Line Operator: Signed CTA CHEST W/WO Observed: 07/08/2018 Status: F Source: [place] CONTRAST 11:56 AM [facility] Imaging Services [address] [place] [address] CTA Chest W/WO Contrast MR#: [id number] Acct: [id number] Name: MAISHA DESAI Rep #: [id number] : 1955 M 62 From: Gianluca Vila MD PCP: Saturnino Wilson MD Status: [facility] ER Study: CTA Chest W/WO Contrast Date of Exam: 07/08/18 Exam# [id number] Ordering Dr: Gil Edmond MD STUDY: CTA CHEST REASON FOR EXAM: Male, 62 years old. History of thoracic aortic aneurysm. Patient presents with a history of left shoulder pain. No known injury. RADIATION DOSAGE (If Supplied By Facility): CTDIvol = ( 38.91 ) mGy, DLP = ( 1674.58 ) mGycm TECHNIQUE: The examination was performed with the intravenous administration of 100 ml of Isovue 370 contrast material. Post-processing of the angiographic images was performed, with multiplanar reformation and 3D reconstruction. Individualized dose optimization techniques were used for this CT. COMPARISON: None. FINDINGS: Mild enlargement of the thyroid gland more prominent on the right side. Benign appearing bilateral axillary lymph nodes. Normal enhancement of the main pulmonary artery and right and left pulmonary arteries. Normal enhancement of the bilateral peripheral pulmonary arteries. There is no demonstrated pulmonary embolism. There is atherosclerotic calcification of the aortic arch with tortuosity. There is no demonstrated aortic dissection. There are calcifications of the coronary arteries. There are visualized mediastinal lymph nodes, which are within normal size limits, and with normal morphology. Normal hilar regions. Normal visualized trachea and bronchi. The lungs are well expanded. Subpleural blebs are seen in the lateral superior aspect of the right upper lobe suggestive of bronchial scarring. There is also evidence of a several small subpleural blebs in the left lung apex. Mild degree of increased markings at the lung bases suggestive of bibasilar atelectasis and/or scarring. Normal pleura. Normal chest wall structures. There are degenerative changes of thoracic spine. Normal visualized upper abdomen. CT/CTA Chest W/WO Contrast IMPRESSION: There is no evidence of aortic dissection. Findings suggestive of mild atelectasis and/or scarring at the lung bases as well as in the upper lobes. Enlargement of the thyroid gland. Electronically Signed: Gianluca Vila MD at 12:46 EST Tel [phone], Service support , CC: Gil Edmond MD; Saturnino Wilson MD Production Line Operator: Signed CBC W/DIFF, AUTOMATED Collected: 07/08/2018 Status: F Source: [place] 9:50 AM [facility] TYPE CODE TESTS RESULT OUT OF RANGE REFERENCE UNITS LAB L100.1000 4.4-11.0 K/mm3 Normal WBC 9.5 LAB L100.1200 4.6-6.2 M/mm3 Normal RBC 4.71 LAB L100.1300 13.0-16.5 g/dl Normal HGB 16.0 LAB L100.1400 40-54 % Normal HCT 46.7 LAB L100.1500 80-94 fL High MCV 99.2 LAB L100.1600 27.0-32.0 pg High MCH 34.0 LAB L100.1700 32-36 g/gl Normal MCHC 34.3 LAB L100.1810 11.6-14.6 % Normal RDW CV 12.8 LAB L100.1820 35.1-43.9 fl High RDW SD 46.7 LAB L100.1900 150-450 K/mm3 Normal PLT 179 LAB L100.2000 6.2-12.0 fl Normal MPV 9.8 LAB L100.2100 47-70 % High NEUT% 70.7 LAB L100.2200 19-41 % Normal LY% 19.3 LAB L100.2300 0-10 % Normal MONO% 8.3 LAB L100.2400 0-5 % Normal EO% 1.1 LAB L100.2500 0-1 % Normal BASO% 0.3 LAB L100.2550 0.0-0.9 % Normal IM GRAN % 0.300 Result Comment: IG% - Immature Granulocytes (promyelocytes, myelocytes and metamyelocytes) > 1% indicates that a LEFT SHIFT is Present. LAB L100.2620 2.0-7.7 X10 3/uL Normal Absolute Neut 6.7 LAB L100.2720 0.83-4.51 X10 3/ul Normal Absolute Lymph 1.84 Performed By: #### L100.0100 #### [facility] [place], [address] COMPREHENSIVE METABOLIC Collected: 07/08/2018 Status: F Source: [facility] 9:50 AM [facility] TYPE CODE TESTS RESULT OUT OF RANGE REFERENCE UNITS LAB L501.0100 74-106 mg/dL High GLU 117 Result Comment: Fasting Glucose result from 100 to 125 mg/dL suggests IMPAIRED HOMEOSTASIS per A.D.A. criteria. Please note revised GLUCOSE reference range effective 2017. LAB L501.1000 7-18 mg/dL High BUN 24 LAB L501.1100 0.70-1.30 mg/dL Normal CREAT,SERUM 1.22 Result Comment: The validity of the calculated GFR AND GFRAA in patients over 70 years has not been determined. Clinical correlation is essential. LAB L501.1110 >60 mL/min Normal EST GFR 64 Result Comment: Non- GFR Calc LAB L501.1115 >60 mL/min Normal EST GFR - AA 77 Result Comment: GFR Calc LAB L501.1255 ml/min Normal Estimated CRCL 63.99 LAB L501.1300 10-20 RATIO Normal BUN/CRE 19.7 LAB L501.1500 6.4-8. g/dL Normal 2 T PROT 7.1 LAB L501.1800 3.2-5. g/dL Normal 0 ALB 3.5 LAB L501.1950 2.2-4. g/dL Normal 2 GLOB 3.6 LAB L501.2000 0.9-2. RATIO Normal 4 A/G 1.0 LAB L501.2200 8.5-10 mg/dL Low .1 CA 8.4 LAB L501.4100 15-37 U/L Normal AST 33 LAB L501.4305 45-117 U/L High ALK P 123 LAB L501.4405 16-61 U/L High ALT 65 LAB L501.4600 0.20-1 mg/dL Normal .00 T BILI 0.60 LAB L501.5300 136-14 mmol/L Normal 5 NA 140 LAB L501.5600 3.5-5. mmol/L Normal 1 K 4.1 LAB L501.5900 98-107 mmol/L Normal CL 107 LAB L501.6100 21.0-3 mmol/L Normal 2.0 CO2 26.0 LAB L501.6200 5-15 Normal GAP 7 Performed By: #### L500.4050, L501.2450, L501.4010 #### [facility] [address] [place], [address] LIPASE Collected: 07/08/2018 Status: F Source: [place] 9:50 AM [facility] [place] TYPE CODE TESTS RESULT OUT OF RANGE REFERENCE UNITS LAB L501.2450 73-393 U/L Normal LIPASE 98 Performed By: #### L500.4050, L501.2450, L501.4010 #### [facility] [address] [facility] [place], [address] TROPONIN-I Collected: 07/08/2018 Status: F Source: [place] 9:50 AM [facility] [place] TYPE CODE TESTS RESULT OUT OF RANGE REFERENCE UNITS LAB L501.4010 <0.045 ng/mL Normal < 0.015 TROPONIN-I Result Comment: TROPONIN-I EXPECTED VALUES <0.045 Negative 0.045 - 0.590 Consistent with Cardiac Damage > OR = 0.600 Critical Value Not every elevated troponin is indicative of AL. These values should be used with clinical judgement in examining the patient's clinical picture for diagnosis. To establish a diagnosis of AL versus myocardial injury, there must be a demonstrated rise and/or fall in the troponin values, in addition to ischemic symptoms, EKG changes, new regional wall motion abnormality, and/or angiographical evidence. PLEASE NOTE: REFERENCE RANGES EDITED 17 Performed By: #### L500.4050, L501.2450, L501.4010 #### [facility] [address] [facility] [place], [address] CHEST 1 VIEW Observed: 07/08/2018 Status: F Source: [place] (PORTABLE) 9:39 AM [facility] [place] [facility] Imaging Services [address] [facility] [place] [address] Chest 1 View (Portable) MR#: [id number] Acct: [id number] Name: MAISHA DESAI Rep #: [id number] : 1955 M 62 From: Gianluca Vila MD PCP: Saturnino Wilson MD Status: [facility] ER Study: Chest 1 View (Portable) Date of Exam: 07/08/18 Exam# [id number] Ordering Dr: Gil Edmond MD STUDY: X-RAY CHEST REASON FOR EXAM: Male, 62 years old. Chest pain and arm pain. TECHNIQUE: Single AP portable view of the chest. COMPARISON: Comparison is made with prior study dated March 01, 2018. FINDINGS: EKG electrodes are seen. Mild increased markings at the lung bases suggestive of atelectasis. There is no demonstrated pleural abnormality. There is mild cardiac enlargement. Normal mediastinum and raul. Normal visualized pulmonary arteries. There is atherosclerotic tortuosity of the aortic arch and descending thoracic aorta. Normal visualized thoracic spine. Normal visualized ribs, clavicles, and shoulders. There is no demonstrated abnormality of the visualized soft tissue structures of the upper abdomen. RAD/Chest 1 View (Portable) IMPRESSION: Mild increased markings at the lung bases suggestive of mild bibasilar atelectasis. Electronically Signed: Gianluca Vila MD at 10:48 EST Tel [phone], Service support , CC: Gil Edmond MD; Saturnino Wilson MD Production Line Operator: Signed ABDOMEN WITHOUT IV Observed: 06/22/2018 Status: F Source: [place] CONTRAST 8:53 AM [facility] Imaging Services [address] [place] [address] Abdomen without IV Contrast MR#: [id number] Acct: [id number] Name: MAISHA DESAI Rep #: [id number] : 1955 M 62 From: Santos Lopez MD PCP: Saturnino Wilson MD Status: REG CLI Study: Abdomen without IV Contrast Date of Exam: 06/22/18 Exam# [id number] Ordering Dr: Saturnino Wilson MD STUDY: CT ABDOMEN WITHOUT CONTRAST REASON FOR EXAM: Male, 62 years old. Epigastric pain x5 months. History of cholecystectomy. RADIATION DOSAGE (If Supplied By Facility): CTDIvol = ( 24.17 ) mGy, DLP = ( 938.63 ) mGycm TECHNIQUE: Transaxial images were obtained without intravenous contrast, and without oral contrast. Sagittal and coronal images were reconstructed. Individualized dose optimization techniques were used for this CT. COMPARISON: 2 AP supine films of the abdomen and pelvis March 02, 2016; abdominal ultrasound November 04, 2015. FINDINGS: The visualized lung bases are unremarkable. The visualized portions of the heart are within normal limits. Some portions of the liver, predominantly the superior posterior right lobe, show decreased density could reflect a degree of regional fatty infiltration. No defined focal hepatic mass, however. The portal vein diameter is 14 mm. There is non-visualization of the gallbladder, which may be secondary to either contraction or a prior cholecystectomy. The common bile duct diameter is roughly 5 mm. Normal spleen. Normal pancreas. Normal bilateral adrenal glands. Normal right kidney. There is focal scarring in the anterolateral upper pole of the left kidney. No hydronephrosis. Normal visualized stomach. Normal small intestine. There are occasional colonic diverticula consistent with diverticulosis. There are calcifications in the region of the appendix consistent with a prior appendectomy. There is moderate atherosclerotic calcification of the abdominal aorta and proximal iliac arteries, without a demonstrated aneurysm. The aortic diameter at its distal third is 2.3 x 2.2 cm. Normal inferior vena cava. There are several periaortic retroperitoneal lymph nodes that are upper normal in size. There is a small umbilical hernia containing fat. There are diffuse spondylotic degenerative changes of the visualized spine. Posterior endplate osteophytes impinging on the spinal canal noted at T9-10, T10-11, and L2-3. There are degenerative arthrosis of the visualized sacroiliac joints with anterior osseous bridging on the left. CT/Abdomen without IV Contrast IMPRESSION: 1. No clearly demonstrated source of patient's complaint. 2. Nonvisualized gallbladder, which may be surgically absent. 3. Occasional colonic diverticula without acute diverticulitis. No sign of bowel obstruction or suspicious bowel wall thickening. The appendix is surgically absent. 4. Moderate aortoiliac atherosclerotic calcific plaquing. There is no demonstrated aneurysm, the findings potential risk for future cardiovascular event, Abdominal Aortic Calcific Deposits Are an Important Predictor of Vascular Morbidity and Mortality; Evelio Wolfe, et al. Circulation, Aug 2000;103:2111-0306. 5. Small, fat-containing umbilical hernia. 6. Degenerative changes of the spine and sacroiliac joints. Electronically Signed: Alex Lopez MD at 9:18 EST , Service support , CC: Saturnino Wilson MD Production Line Operator: Signed H. PYLORI STOOL AG Collected: 06/18/2018 Status: F Source: [place] 12:00 AM [facility] [place] TYPE CODE TESTS RESULT OUT OF RANGE REFERENCE UNITS LAB L3100.1950 Negative Normal H PYLORI Negative STL AG Result Comment: Performed at: [facility] [address] [id number] Drawing In Hand: Cherri Carson MD, Phone: [phone] Performed By: #### L3100.1950 #### [facility] (refer to report for specific site) refer to report for address and phone number CBC W/DIFF, AUTOMATED Collected: 06/14/2018 Status: F Source: [place] 9:18 AM [facility] [place] TYPE CODE TESTS RESULT OUT OF RANGE REFERENCE UNITS LAB L100.1000 4.4-11.0 K/mm3 Normal WBC 9.3 LAB L100.1200 4.6-6.2 M/mm3 Normal RBC 4.75 LAB L100.1300 13.0-16.5 g/dl Normal HGB 16.0 LAB L100.1400 40-54 % Normal HCT 47.9 LAB L100.1500 80-94 fL High MCV 100.8 LAB L100.1600 27.0-32.0 pg High MCH 33.7 LAB L100.1700 32-36 g/gl Normal MCHC 33.4 LAB L100.1810 11.6-14.6 % Normal RDW CV 12.6 LAB L100.1820 35.1-43.9 fl High RDW SD 46.8 LAB L100.1900 150-450 K/mm3 Normal PLT 194 LAB L100.2000 6.2-12.0 fl Normal MPV 10.0 LAB L100.2100 47-70 % Normal NEUT% 68.6 LAB L100.2200 19-41 % Normal LY% 20.1 LAB L100.2300 0-10 % Normal MONO% 8.8 LAB L100.2400 0-5 % Normal EO% 1.7 LAB L100.2500 0-1 % Normal BASO% 0.5 LAB L100.2550 0.0-0.9 % Normal IM GRAN % 0.300 Result Comment: IG% - Immature Granulocytes (promyelocytes, myelocytes and metamyelocytes) > 1% indicates that a LEFT SHIFT is Present. LAB L100.2620 2.0-7.7 X10 3/uL Normal Absolute Neut 6.4 LAB L100.2720 0.83-4.51 X10 3/ul Normal Absolute Lymph 1.87 Performed By: #### L100.0100 #### [facility] [address] [place], [address] COMPREHENSIVE METABOLIC Collected: 06/14/2018 Status: F Source: [facility] 9:18 AM [facility] [place] TYPE CODE TESTS RESULT OUT OF RANGE REFERENCE UNITS LAB L501.0100 74-106 mg/dL Normal GLU 97 Result Comment: Please note revised GLUCOSE reference range effective 2017. LAB L501.1000 7-18 mg/dL High BUN 22 LAB L501.1100 0.70-1.30 mg/dL Normal CREAT,SERUM 0.99 Result Comment: The validity of the calculated GFR AND GFRAA in patients over 70 years has not been determined. Clinical correlation is essential. LAB L501.1110 >60 mL/min Normal EST GFR 81 Result Comment: Non- GFR Calc LAB L501.1115 >60 mL/min Normal EST GFR - AA 98 Result Comment: GFR Calc LAB L501.1300 10-20 RATIO High BUN/CRE 22.3 LAB L501.1500 6.4-8.2 g/dL T Normal PROT 7.0 LAB L501.1800 3.2-5.0 g/dL Normal ALB 3.7 LAB L501.1950 2.2-4.2 g/dL Normal GLOB 3.3 LAB L501.2000 0.9-2.4 RATIO Normal A/G 1.1 LAB L501.2200 8.5-10.1 mg/dL CA Normal 8.9 LAB L501.4100 15-37 U/L Normal AST 18 LAB L501.4305 45-117 U/L Normal ALK P 114 LAB L501.4405 16-61 U/L Normal ALT 31 LAB L501.4600 0.20-1.00 mg/dL T Normal BILI 0.60 LAB L501.5300 136-145 mmol/L NA Normal 142 LAB L501.5600 3.5-5.1 mmol/L K Normal 4.0 LAB L501.5900 98-107 mmol/L CL Normal 106 LAB L501.6100 21.0-32.0 mmol/L Normal CO2 28.0 LAB L501.6200 5-15 Normal GAP 8 Performed By: #### L500.4050 #### [facility] [address] [facility] [place], [address] 12 LEAD ELECTROCARDIOGRAM Observed: 03/06/2018 Status: F Source: [place] 1:18 PM [facility] [place] Cardiovascular Services [address] [place] [address] 12 Lead EKG 03/02/18 0507 MR#: [id number] Acct: [id number] Name: MAISHA DESAI Mirna Rep #: [id number] : 1955 62 From: Brandon Simmons MD Attending Dr: Luis Eduardo Jones M.D. Status: DIS JAMIE Ordering Dr: Juliann Marroquin Date: 03/02/18 [place] [facility] [place] Sex: M C Admitted: 03/01/18 Test Reason : AM EKG Blood Pressure : / mmHG Vent. Rate : 075 BPM Atrial Rate : 075 BPM P-R Int : 200 ms QRS Dur : 090 ms QT Int : 390 ms P-R-T Axes : 064 056 017 degrees QTc Int : 435 ms Normal sinus rhythm with sinus arrhythmia Low voltage QRS (limb leads) Confirmed by TROY BROWN, BRANDON ([id number]), makeup editor TOBI DESAI ([id number]) on 03/06/2018 1:18:04 PM Referred By: CARA Confirmed By:BRANDON SIMMONS MD 03/06/18 1318 Date Brandon Simmons MD CC: Juliann Marroquin; Saturnino Wilson MD; Luis Eduardo Jones M.D. Signed BASIC METABOLIC Collected: 03/06/2018 Status: F Source: [place] PROFILE (BMP) 12:03 PM [facility] TYPE CODE TESTS RESULT OUT OF RANGE REFERENCE UNITS LAB L501.0100 74-106 mg/dL Normal GLU 98 Result Comment: Please note revised GLUCOSE reference range effective 2017. LAB L501.1000 7-18 mg/dL Normal BUN 15 LAB L501.1100 0.70-1.30 mg/dL Normal CREAT,SERUM 0.92 Result Comment: The validity of the calculated GFR AND GFRAA in patients over 70 years has not been determined. Clinical correlation is essential. LAB L501.1110 >60 mL/min Normal EST GFR 88 Result Comment: Non- GFR Calc LAB L501.1115 >60 mL/min Normal EST GFR - AA 106 Result Comment: GFR Calc LAB L501.1300 10-20 RATIO Normal BUN/CRE 16.3 LAB L501.2200 8.5-10.1 mg/dL CA Normal 8.7 LAB L501.5300 136-145 mmol/L NA Normal 137 LAB L501.5600 3.5-5.1 mmol/L K Normal 3.7 LAB L501.5900 98-107 mmol/L CL Normal 106 LAB L501.6100 21.0-32.0 mmol/L Normal CO2 22.0 LAB L501.6200 5-15 Normal GAP 9 Performed By: #### L500.2500, L501.5200 #### [facility] [address] [place], [place], [address] MAGNESIUM Collected: 03/06/2018 Status: F Source: [place] 12:03 PM [facility] [place] TYPE CODE TESTS RESULT OUT OF RANGE REFERENCE UNITS LAB L501.5200 1.6-2.6 mg/dL Normal MG 2.0 Performed By: #### L500.2500, L501.5200 #### [facility] [address] [place], [address] 12 LEAD ELECTROCARDIOGRAM Observed: 03/05/2018 Status: F Source: [place] 1:52 PM [facility] Cardiovascular Services [address] [place] [address] 12 Lead EKG 03/01/18 1854 MR#: [id number] Acct: [id number] Name: MAISHA DESAI Rep #: [id number] : 1955 62 From: Gil Melendez MD Attending Dr: Luis Eduardo Jones M.D. Status: DIS JAMIE Ordering Dr: Gil Edmond MD Date: 03/01/18 [place] [facility] [place] Sex: M C Admitted: 03/01/18 Test Reason : FALL Blood Pressure : / mmHG Vent. Rate : 073 BPM Atrial Rate : 073 BPM P-R Int : 184 ms QRS Dur : 102 ms QT Int : 408 ms P-R-T Axes : 042 047 -01 degrees QTc Int : 449 ms Normal sinus rhythm Low voltage QRS Borderline ECG Confirmed by GIL MELENDEZ ([id number]), makeup editor TOBI DESAI ([id number]) on 03/05/2018 1:51:43 PM Referred By: AMY Confirmed By:GIL MELENDEZ 03/05/18 1351 Date Gil Melendez MD CC: Gil Edmond MD; Saturnino Wilson MD; Luis Eduardo Jones M.D. Signed DISCHARGE SUMMARY Observed: 03/02/2018 Status: F Source: [place] 11:46 AM [facility] [place] [facility] Medical Records Department [address] [place] [address] Discharge Summary 03/02/18 1142 MR#: [id number] Acct: [id number] Name: MAISHA DESAI Rep #: [id number] : 1955 62 From: Luis Eduardo Jones MD PCP: Saturnino Wilson MD Status: ADM JAMIE Y [place] [facility] [place] [id number] Discharge Date and Diagnosis - Problem List Patient Problems: Active and Suspected Problems Alcohol intoxication (Acute) Fall (Acute) COPD (chronic obstructive pulmonary disease) (Suspected) Date of Admission: 03/01/18 Date of Discharge: 03/02/18 - Primary Discharge Diagnosis Active and Suspected Problems Alcohol intoxication (Acute) Fall (Acute) COPD (chronic obstructive pulmonary disease) (Suspected) - Secondary Discharge Diagnosis Chronic Problems ETOH abuse (Chronic) Tobacco use (Chronic) HTN (hypertension) (Chronic) HLD (hyperlipidemia) (Chronic) Morbid obesity (Chronic) JUSTEN (obstructive sleep apnea) (Chronic) Hospital Course and Treatment Operations: None Procedures: None Summary of Care Provided: The patient is a 62 year old M admitted to the hospital following and fall and/or passing out while intoxicated with alcohol. Alcohol blood level on presentation was 210mg/dl Today patient is no longer intoxicated, is doing fairly well and is quite anxious to go home Ok for discharge Mat Gauger on alcohol use with moderation [] Discharge Activity: Return to Normal Activity, No Restrictions Home Medications: Medications to take at Discharge Nebivolol HCl [Bystolic (Beta Ag)] 10 mg PO DAILY 03/02/16 Olmesartan/Hydrochlorothiazide [Benicar Hct 40-25 MG Tablet] 1 tab PO DAILY 03/02/16 Pravastatin [Pravachol] 80 mg PO DAILY 03/02/16 Thiamine HCl [Vitamin B-1] 100 mg PO DAILY #30 tab 03/02/18 Following Prescrptions Were Given to Patient: Thiamine HCl [Vitamin B-1] 100 mg PO DAILY #30 tab Primary Care Physician: Saturnino Wilson MD [Primary Care Provider] - Medical Necessity - Tobacco Use Smoking Status: Current every day smoker Tobacco Use: Cigarettes Meaningful Use Info Meaningful Use Diagnoses (Choose all that apply): None applicable Code Visit OBSV Patrice AND M: [id number] Observation care discharge 03/02/18 1146 <Electronically signed by Luis Eduardo Jones MD> Date Luis Eduardo Jones MD Cosigner Signature (if applicable): Date CC: Saturnino Wilson MD; Luis Eduardo Jones M.D. Signed DISCHARGE INSTRUCTION Observed: 03/02/2018 Status: F Source: [place] 11:41 AM [facility] Medical Records Department [address] [place] [address] Instructions for Home/Discharge Instructions 03/02/18 1139 MR#: [id number] Acct: [id number] Name: MAISHA DESAI Rep #: [id number] : 1955 62 From: Luis Eduardo Jones MD PCP: Saturnino Wilson MD Status: ADM JAMIE - Discharge Diagnoses Current Active Problems: Current Active and Chronic Problems Alcohol intoxication (Acute) Fall (Acute) ETOH abuse (Chronic) Tobacco use (Chronic) HTN (hypertension) (Chronic) HLD (hyperlipidemia) (Chronic) Morbid obesity (Chronic) JUSTEN (obstructive sleep apnea) (Chronic) You will use the following diet at home:: No restrictions, Regular Discharge Activity: Return to Normal Activity, No Restrictions Additional Instructions: drink alcohol in moderation Allergies/Adverse Reactions: Allergies No Known Allergies Allergy (Verified 03/01/18 18:29) Medications to take at Discharge Nebivolol HCl [Bystolic (Beta Ag)] 10 mg PO DAILY 03/02/16 Olmesartan/Hydrochlorothiazide [Benicar Hct 40-25 MG Tablet] 1 tab PO DAILY 03/02/16 Pravastatin [Pravachol] 80 mg PO DAILY 03/02/16 Thiamine HCl [Vitamin B-1] 100 mg PO DAILY #30 tab 03/02/18 The following prescriptions were given: Thiamine HCl [Vitamin B-1] 100 mg PO DAILY #30 tab Primary Care Physician: Saturnino Wilson MD [Primary Care Provider] - Test Results: Test results from this visit will be discussed in further detail at your follow-up appointment, if applicable. Proposed Discharge Date: 03/02/18 03/02/18 1141 <Electronically signed by Luis Eduardo Jones MD> Date Luis Eduardo Jones MD CC: Saturnino Wilson MD CBC W/DIFF, AUTOMATED Collected: 03/02/2018 Status: F Source: [place] 4:10 AM [facility] [place] TYPE CODE TESTS RESULT OUT OF RANGE REFERENCE UNITS LAB L100.1000 4.4-11.0 K/mm3 Normal WBC 10.4 LAB L100.1200 4.6-6.2 M/mm3 Low RBC 4.16 LAB L100.1300 13.0-16.5 g/dl Normal HGB 14.6 LAB L100.1400 40-54 % Normal HCT 43.7 LAB L100.1500 80-94 fL High MCV 105.0 LAB L100.1600 27.0-32.0 pg High MCH 35.1 LAB L100.1700 32-36 g/gl Normal MCHC 33.4 LAB L100.1810 11.6-14.6 % Normal RDW CV 13.8 LAB L100.1820 35.1-43.9 fl High RDW SD 52.6 LAB L100.1900 150-450 K/mm3 Normal PLT 167 LAB L100.2000 6.2-12.0 fl Normal MPV 9.3 LAB L100.2100 47-70 % Normal NEUT% 68.3 LAB L100.2200 19-41 % Normal LY% 22.7 LAB L100.2300 0-10 % Normal MONO% 6.5 LAB L100.2400 0-5 % Normal EO% 1.7 LAB L100.2500 0-1 % Normal BASO% 0.5 LAB L100.2550 0.0-0.9 % Normal IM GRAN % 0.300 Result Comment: IG% - Immature Granulocytes (promyelocytes, myelocytes and metamyelocytes) > 1% indicates that a LEFT SHIFT is Present. LAB L100.2620 2.0-7.7 X10 3/uL Normal Absolute Neut 7.1 LAB L100.2720 0.83-4.51 X10 3/ul Normal Absolute Lymph 2.35 Performed By: #### L100.0100 #### [facility] [address] [place], [address] BASIC METABOLIC Collected: 03/02/2018 Status: F Source: [place] PROFILE (BMP) 4:10 AM [facility] [place] TYPE CODE TESTS RESULT OUT OF RANGE REFERENCE UNITS LAB L501.0100 74-106 mg/dL Normal GLU 77 Result Comment: Please note revised GLUCOSE reference range effective 2017. LAB L501.1000 7-18 mg/dL Normal BUN 14 LAB L501.1100 0.70-1.30 mg/dL Normal CREAT,SERUM 0.83 Result Comment: The validity of the calculated GFR AND GFRAA in patients over 70 years has not been determined. Clinical correlation is essential. LAB L501.1110 >60 mL/min Normal EST GFR 100 Result Comment: Non- GFR Calc LAB L501.1115 >60 mL/min Normal EST GFR - AA 121 Result Comment: GFR Calc LAB L501.1255 ml/min Normal Estimated CRCL 97.02 LAB L501.1300 10-20 RATIO Normal BUN/CRE 16.9 LAB L501.2200 8.5-10 mg/dL Low .1 CA 7.6 LAB L501.5300 136-14 mmol/L Normal 5 NA 144 LAB L501.5600 3.5-5. mmol/L Normal 1 K 4.1 LAB L501.5900 98-107 mmol/L High CL 114 LAB L501.6100 21.0-3 mmol/L Low 2.0 CO2 19.0 LAB L501.6200 5-15 Normal GAP 11 Performed By: #### L500.2500 #### [facility] [address] [place], [address] TROPONIN-I Collected: 03/02/2018 Status: F Source: [place] 4:10 AM [facility] Order Comment: 'TROP' Serial specimen #1, #2 or #3: 3 TYPE CODE TESTS RESULT OUT OF RANGE REFERENCE UNITS LAB L501.4010 <0.045 ng/mL Normal < 0.015 TROPONIN-I Result Comment: TROPONIN-I EXPECTED VALUES <0.045 Negative 0.045 - 0.590 Consistent with Cardiac Damage > OR = 0.600 Critical Value Not every elevated troponin is indicative of AL. These values should be used with clinical judgement in examining the patient's clinical picture for diagnosis. To establish a diagnosis of AL versus myocardial injury, there must be a demonstrated rise and/or fall in the troponin values, in addition to ischemic symptoms, EKG changes, new regional wall motion abnormality, and/or angiographical evidence. PLEASE NOTE: REFERENCE RANGES EDITED 17 Performed By: #### L501.4010 #### [facility] [address] [place], [address] EMERGENCY DEPARTMENT Observed: 03/01/2018 Status: F Source: [place] SUMMARY 11:38 PM [facility] Medical Records Department [address] [place] [address] Emergency Department Summary 03/01/18 2105 MR#: [id number] Acct: [id number] Name: MAISHA DESAI Rep #: [id number] : 1955 62 From: Gil Edmond MD PCP: Saturnino Wilson MD Status: ADM JAMIE - ER Visit Summary Date of Service: 03/01/18 Chief Complaint: Fall History of Present Illness: The patient is a 62 M who presents after a fall at home. The patient drank 6 mixed drinks. His heard him fall, but did not witness it. Patient does not recall the fall. He was feeling well before the fall. His found him on the ground and thinks he was unconscious for up to 4 minutes. She had difficulty waking him up and called 911. The patient remembers being transported to the hospital. He said this never happened before. He has been well recently. He does drink and smoke regularly. He also has a history of hypertension and hyperlipidemia. Denies any heart or lung disease. Denies history of PE. He does not take blood thinners. Denies weakness or numbness. Denies history of seizures. Denies loss of bowel or bladder. Physical Examination: Blood pressure 102/71. Afebrile. Heart rate 73 and respiratory rate 20. Pulse ox 90% on room air. Heart regular rate and rhythm. Lungs show diminished sounds throughout all addison. No acute distress, sitting comfortably. Abdomen soft and nontender. Extremities atraumatic and nontender. Head and neck normal inspection. Nontender. Cranial nerves grossly intact. No focal or lateralizing neurologic abnormalities grossly. Test Results: EKG showed sinus rhythm at a rate of 73. No sign of acute ischemia or infarction pattern. Chest x-ray showed no acute abnormality. CT brain and C-spine showed no intracranial changes. He does have right maxillary fluid concerning for fracture versus sinusitis. Patient has no tenderness, so I suspect he has sinusitis. He has been dealing with sinus symptoms recently. C-spine was unremarkable. Chronic changes only. CBC and BMP unremarkable except for a potassium of 3.2. Troponin normal. Emergency Department Course and Treatment: Patient was placed on a monitor. Treated with a DuoNeb. He had no further symptoms or loss of consciousness. His workup as above was fairly unremarkable. He did have a transient hypotension which resolved with IV fluids. Patient reports no history of hypotension. Patient has a pulse ox of 90% which improved with 2 L nasal cannula. Patient denies any history of lung disease. His lung sounds were fairly quiet. He was treated with a DuoNeb. He does not have chest pain. No history of ACS or PE. Patient was discussed with the hospitalist who will admit for further care. She did request a urine drug screen and alcohol level. Results are pending at the time of this dictation. Treatment Plan: As above Disposition: Admission Impression: 1. Syncope This note was generated with [employer] dictation software. It may contain incorrect words, spelling, and punctuation that were not noted in review of the chart prior to signing ED Disposition - Plan for ED Patient: Chief Complaint: Fall What to do if you have Problems For any increased pain, shortness of breath, bleeding, nausea or vomiting, chest pain, or any unexpected problems, contact your Primary Care Provider. Call [facility] ([phone]) or report to the closest Emergency Room. Call 911 if necessary. 03/01/18 7184 <Electronically signed by Gil Edmond MD> Date Gil Edmond MD Cosigner Signature (If Indicated): Date CC: Saturnino Wilson MD TROPONIN-I Collected: 03/01/2018 Status: F Source: [place] 10:20 PM [facility] Order Comment: 'TROP' Serial specimen #1, #2 or #3: 2 TYPE CODE TESTS RESULT OUT OF RANGE REFERENCE UNITS LAB L501.4010 <0.045 ng/mL Normal < 0.015 TROPONIN-I Result Comment: TROPONIN-I EXPECTED VALUES <0.045 Negative 0.045 - 0.590 Consistent with Cardiac Damage > OR = 0.600 Critical Value Not every elevated troponin is indicative of AL. These values should be used with clinical judgement in examining the patient's clinical picture for diagnosis. To establish a diagnosis of AL versus myocardial injury, there must be a demonstrated rise and/or fall in the troponin values, in addition to ischemic symptoms, EKG changes, new regional wall motion abnormality, and/or angiographical evidence. PLEASE NOTE: REFERENCE RANGES EDITED 17 Performed By: #### L501.4010 #### [facility] [address] [place], [address] URINE DRUG SCREEN Collected: 03/01/2018 Status: F Source: MALINI (Venafi) 10:00 PM [facility] Order Comment: List of Drugs Taken or Suspected? UNK TYPE CODE TESTS RESULT OUT OF RANGE REFERENCE UNITS LAB L505.0075 TO BE Normal CONFIRMED Result Comment: CONFIRMATORY TESTING FOR ALL POSITIVE URINE DRUG SCREEN RESULTS WILL ONLY BE SENT OUT UPON PHYSICIAN ORDER. VISTA Urine Drug Screen methods provide only preliminary analytical test results. A more specific alternate chemical method must be used in order to obtain a confirmed analytical result. Gas chromatography/mass spectrometery (GC/MS) is the preferred confirmatory method. Clinical consideration and professional judgement should be applied to any drug of abuse test result, particularly when preliminary positive results are used. URINE TCA TESTING MUST BE ORDERED SEPARATELY. USE TEST MNEMONIC: [facility] LAB L505.5005 VISTA UDS PH 6 Normal LAB L505.5015 <1000 ng/mL AMPHETAMINES Normal NEGATIVE LAB L505.5025 < 200 ng/mL BARBITIURATES Normal NEGATIVE LAB L505.5035 < 200 ng/mL BENZODIAZIPINE Normal NEGATIVE LAB L505.5045 < 300 ng/mL COCAINE Normal NEGATIVE LAB L505.5055 < 500 ng/mL ECSTACY Normal NEGATIVE LAB L505.5065 < 300 ng/mL METHADONE Normal NEGATIVE LAB L505.5075 < 300 ng/mL OPIATES Normal NEGATIVE LAB L505.5085 < 25 ng/mL PCP Normal NEGATIVE LAB L505.5095 < 50 ng/mL THC Normal NEGATIVE Performed By: #### L505.5000 #### [facility] [address] [place], [address] HISTORY AND PHYSICAL Observed: 03/01/2018 Status: F Source: [place] EXAM 9:09 PM [facility] Medical Records Department [address] [place] [address] History and Physical 03/01/182039 MR#: [id number] Acct: [id number] Name: MAISHA DESAI Rep #: [id number] : 1955 62 From: Juliann Marroquin PCP: Saturnino Wilson MD Status: ADM JAMIE Y Location: [place] [address] Problem List (1) Alcohol intoxication Status: Acute Qualifiers: Complication of substance-induced condition: with unspecified complication Qualified Code(s): F10.929 - Alcohol use, unspecified with intoxication, unspecified (2) Fall Status: Acute Qualifiers: Encounter type: initial encounter Qualified Code(s): W19.XXXA - Unspecified fall, initial encounter (3) ETOH abuse Status: Chronic (4) Tobacco use Status: Chronic (5) HTN (hypertension) Status: Chronic Qualifiers: Hypertension type: essential hypertension Qualified Code(s): I10 - Essential (primary) hypertension (6) HLD (hyperlipidemia) Status: Chronic Qualifiers: Hyperlipidemia type: pure hypercholesterolemia Qualified Code(s): E78.00 - Pure hypercholesterolemia, unspecified; E78.0 - Pure hypercholesterolemia (7) Morbid obesity Status: Chronic (8) COPD (chronic obstructive pulmonary disease) Status: Suspected Qualifiers: COPD type: unspecified COPD Qualified Code(s): J44.9 - Chronic obstructive pulmonary disease, unspecified (9) JUSTEN (obstructive sleep apnea) Status: Chronic History of Present Illness Date of Admission: 03/01/18 Chief Complaint: Fall while inebriated The patient is a 62 y/o M w/ PMHx: Morbid Obesity, HTN, HLD, Tobacco use, EtOH Abuse who presents to the [facility] ED on 03/01/18 following mechanical fall while attempting to enter his home following notable mixed drink EtOH intake with trauma to face secondary to fall. He does not recall specific events or the moment of passing out. He notes he is normally very active and works outside despite recent heat. He notes also going to the gym nearly daily to use the machines and lift weights. In the ED work-up included T 97.9, heart rate 73, BP 102/71, respiratory rate 20, 92% on room air, CBC unremarkable, BMP with potassium 3.2, troponin less than 0.015, CT brain with no acute intracranial findings, fluid in the right maxillary sinus consistent with ? occult facial fracture or acute sinusitis, evidence chronic sinusitis, T cervical spine with no evidence of cervical trauma, mild to moderate canal stenosis C3-4 through C5-C6, moderate to severe foraminal stenosis C2-3 and C5-6, chest x-ray with no acute process. In ED patient insert normal saline, DuoNeb. Discussed with ED physician and pending EtOH level and UDS. Patient with no facial pain at ? facial fracture and does admit to notable sinus issues chronically. Family notes concerns that he may have passed out versus mechanical fall. Past Medical History Past Medical History (Chronic Problems): Chronic Problems ETOH abuse (Chronic) Tobacco use (Chronic) HTN (hypertension) (Chronic) HLD (hyperlipidemia) (Chronic) Morbid obesity (Chronic) JUSTEN (obstructive sleep apnea) (Chronic) Allergies No Known Allergies Allergy (Verified 03/01/18 18:29) Home Medications: Ambulatory Orders Medication Instructions Recorded Nebivolol HCl [Bystolic (Beta 10 mg PO DAILY 03/02/16 Surgical History: - - Cholecystectomy, left knee arthroscopic surgery. Psychiatric History: No pertinent psych hx Lives: Spouse/ Significant Other Smoking Status: Current every day smoker - 1 pack per day since teenager. Tobacco Use: Cigarettes Alcohol: Heavy - Patient notes weekend drinking Sunday through Sunday with at least 6 larger heavy mixed drinks per day. Drugs: None - *Family History Maternal History Items: No pertinent history Paternal History Items: Cancer - Father with history of colon cancer. Review of Systems Constitutional: Reports: Fatigue. Denies: Chills, Fever, Weight Change HEENT: Denies: Head Aches, Sinus Congestion, Sinus Drainage Cardiovascular: Reports: Syncope. Denies: Chest Pain, Chest Pressure, Chest Tightness, Light Headedness, Palpitations Respiratory: Denies: Cough, Shortness of Breath, Shortness of breath at rest, Shortness of breath upon exertion, Sputum production Gastrointestinal: Denies: Abdominal Pain, Nausea, Vomiting Genitourinary: Denies: Dysuria Musculoskeletal: Reports: Back Pain. Denies: Joint Pain, Joint Tenderness Skin: Denies: Rash, Wounds Neurological: Denies: Numbness, Tingling, Focal weakness Psychiatric: Denies: Anxiety, Depression, Homicidal Ideations, Suicidal Ideations Hematologic/ Lymphatic: Denies: Easy Bruising, Easy Bleeding VTE Information - Inpt Only VTE Present on Admission: No VTE Mechan Device Prophylaxis: SCD's VTE Pharm Prophylaxis ordered?: Yes Patient Problems: Active and Suspected Problems Alcohol intoxication (Acute) Fall (Acute) COPD (chronic obstructive pulmonary disease) (Suspected) Subjective: Seated upright in the ED bed, no acute distress, denies any facial discomfort. Objective: Physical Examination: General: awake, alert, oriented x 3 despite intoxication, cooperative, seated upright in the ED bed in no apparent distress. Skin: normal color, turgor, no icterus, cyanosis. HEENT: AT/NC, EOMI, PERRLA, mildly dry MM, no carotid bruits or JVD noted. Lungs: Diffusely diminished BS, > BL bases, mild effort, no rales, ronchi or wheezing. Heart: Regular rate and rhythm; no gallop, rub audible. Abdomen: soft, morbidly obese, ventral hernia present, NTTP, ND, normal BS, unable to discern HSM secondary to habitus. Extremities: no cyanosis, clubbing, mild BL ankle edema, non-pitting. Neurological: patient awake, alert, oriented x 3; cognitive function despite intoxication appears intact; pupils equally reactive to light and accomodation; cranial nerves II-XII grossly normal, moving all 4 extremities, no focal deficits, strength mildly globally decreased. Psychiatric: affect appears fatigued, flushed appearance, no acute evidence of depressive or anxiety feelings. - Physical Exam Vital Signs Temp Pulse Resp BP Pulse Ox 97.9 F 74 19 H 116/90 H 93 03/01/18 18:29 03/01/18 20:28 03/01/18 20:28 03/01/18 20:28 03/01/18 20:28 Oxygen Flow Rate (L/min) 2 Oxygen Delivery Method Nasal Cannula Weight: 304 lb 3.806 oz Body Mass Index (BMI) 42.4 Laboratory Tests Past 24 Hrs WBC 9.2 RBC 4.18 L Hgb 14.7 Hct 41.6 MCV 99.5 H MCH 35.2 H MCHC 35.3 RDW 13.2 RDW Differential 47.2 H Assessment/Plan All Active Problems Alcohol intoxication (Acute) Fall (Acute) The patient is a 62 y/o M w/ PMHx: Morbid Obesity, HTN, HLD, Tobacco use, EtOH Abuse who presents to the [facility] ED on 03/01/18 following mechanical fall while attempting to enter his home following notable mixed drink EtOH intake with trauma to face secondary to fall. (1) Mechanical Fall, ? Syncopal Event but Concurrent Heavy EtOH Recent Intake: Suspect likely given reported heavy EtOH, tripped with mechanical fall versus passed out. EKG without acute findings, trop normal x 1, CXR not marked. CT head and CT neck without any acute findings aside ? facial fracture but no pain w. palpation. Requested ED to obtain EtOH level and UDS. ED noting concerns for possible etiology for ? syncopal event and requested observation overnight. Will admit to MA, place on a monitored bed, cycle enzymes and repeat AM EKG although less suspicion for cardiac etiology given presentation history, aggressively hydrate, await EtOH level and UDS, maintain on fall precautions, obtain mag and phos levels and supplement as needed. Will place on CIWA for when improved from current intoxication, maintain on MVI, thiamine and folic acid. SW/CM consultation once improved for substance abuse assist. (2) Mild Hypotension: Noted upon admission, immediately improved w/ IVFs, suspect mild dehydration, heat exposure coupled with heavy recent EtOH intoxication, continue to hydrate, hold BP regimen until AM. (3) Suspected Underlying Chronic COPD: Oxygenation low normal in the ED, recent heavy EtOH intake w/ morbid obesity and underlying JUSTEN as etiology although possible underlying COPD with tobacco use history. Maintain on ATC duoneb, PRN albuterol. (4) Hypokalemia: Admission K+ 3.2, supplementation given, repeat level in AM. (5) Morbid Obesity: Weight loss and lifestyle changes encouraged, nutrition consulted. (6) Hyperlipidemia: Continue home statin regimen. (7) Hypertension: Holding regimen, monitor BPs, restart once appropriate given presentation w/ low normal BP in the ED. (8) JUSTEN: CPAP q HS. (9) DVT Prophylaxis: SCDs, defer chemoprophylaxis given possible facial fracture although as noted lower suspicion given NTTP; however, notably intoxicated, re-examination in AM may yield altered results. Code Visit OBSV E AND M: [id number] Initial observation care L3 03/01/182108 <Electronically signed by Juliann Marroquin > Date Juliann Marroquin Cosigner Signature: Date (if applicable) CC: Juliann Marroquin; Saturnino Wilson MD Signed CBC W/DIFF, AUTOMATED Collected: 03/01/2018 Status: F Source: [place] 6:52 PM [facility] TYPE CODE TESTS RESULT OUT OF RANGE REFERENCE UNITS LAB L100.1000 4.4-11.0 K/mm3 Normal WBC 9.2 LAB L100.1200 4.6-6.2 M/mm3 Low RBC 4.18 LAB L100.1300 13.0-16.5 g/dl Normal HGB 14.7 LAB L100.1400 40-54 % Normal HCT 41.6 LAB L100.1500 80-94 fL High MCV 99.5 LAB L100.1600 27.0-32.0 pg High MCH 35.2 LAB L100.1700 32-36 g/gl Normal MCHC 35.3 LAB L100.1810 11.6-14.6 % Normal RDW CV 13.2 LAB L100.1820 35.1-43.9 fl High RDW SD 47.2 LAB L100.1900 150-450 K/mm3 Normal PLT 189 LAB L100.2000 6.2-12.0 fl Normal MPV 9.2 LAB L100.2100 47-70 % Normal NEUT% 60.2 LAB L100.2200 19-41 % Normal LY% 28.8 LAB L100.2300 0-10 % Normal MONO% 8.0 LAB L100.2400 0-5 % Normal EO% 2.2 LAB L100.2500 0-1 % Normal BASO% 0.4 LAB L100.2550 0.0-0.9 % Normal IM GRAN % 0.400 Result Comment: IG% - Immature Granulocytes (promyelocytes, myelocytes and metamyelocytes) > 1% indicates that a LEFT SHIFT is Present. LAB L100.2620 2.0-7.7 X10 3/uL Normal Absolute Neut 5.5 LAB L100.2720 0.83-4.51 X10 3/ul Normal Absolute Lymph 2.64 Performed By: #### L100.0100 #### [facility] [address] [place], [address] BASIC METABOLIC Collected: 03/01/2018 Status: F Source: [place] PROFILE (BMP) 6:52 PM [facility] TYPE CODE TESTS RESULT OUT OF RANGE REFERENCE UNITS LAB L501.0100 74-106 mg/dL Normal GLU 101 Result Comment: Fasting Glucose result from 100 to 125 mg/dL suggests IMPAIRED HOMEOSTASIS per A.D.A. criteria. Please note revised GLUCOSE reference range effective 2017. LAB L501.1000 7-18 mg/dL Normal BUN 18 LAB L501.1100 0.70-1.30 mg/dL Normal CREAT,SERUM 1.19 Result Comment: The validity of the calculated GFR AND GFRAA in patients over 70 years has not been determined. Clinical correlation is essential. LAB L501.1110 >60 mL/min Normal EST GFR 66 Result Comment: Non- GFR Calc LAB L501.1115 >60 mL/min Normal EST GFR - AA 79 Result Comment: GFR Calc LAB L501.1255 ml/min Normal Estimated CRCL 67.67 LAB L501.1300 10-20 RATIO Normal BUN/CRE 15.1 LAB L501.2200 8.5-10 mg/dL Low .1 CA 8.1 LAB L501.5300 136-14 mmol/L Normal 5 NA 140 LAB L501.5600 3.5-5. mmol/L Low 1 K 3.2 LAB L501.5900 98-107 mmol/L Normal CL 103 LAB L501.6100 21.0-3 mmol/L Normal 2.0 CO2 23.0 LAB L501.6200 5-15 Normal GAP 14 Performed By: #### L500.2500, L501.4010 #### [facility] [address] [place], [address] TROPONIN-I Collected: 03/01/2018 Status: F Source: [place] 6:52 PM [facility] TYPE CODE TESTS RESULT OUT OF RANGE REFERENCE UNITS LAB L501.4010 <0.045 ng/mL Normal < 0.015 TROPONIN-I Result Comment: TROPONIN-I EXPECTED VALUES <0.045 Negative 0.045 - 0.590 Consistent with Cardiac Damage > OR = 0.600 Critical Value Not every elevated troponin is indicative of AL. These values should be used with clinical judgement in examining the patient's clinical picture for diagnosis. To establish a diagnosis of AL versus myocardial injury, there must be a demonstrated rise and/or fall in the troponin values, in addition to ischemic symptoms, EKG changes, new regional wall motion abnormality, and/or angiographical evidence. PLEASE NOTE: REFERENCE RANGES EDITED 17 Performed By: #### L500.2500, L501.4010 #### [facility] [address] [place], [address] ALCOHOL, BLOOD Collected: 03/01/2018 Status: F Source: [place] (MEDICAL)-SERUM 6:52 PM [facility] TYPE CODE TESTS RESULT OUT OF RANGE REFERENCE UNITS LAB L501.9100 mg/dL Normal SERUM 210.0 ETOH Result Comment: The serum:whole blood ethanol ratio is approximately 1.14 and varies slightly with hematocrit. Medical Alcohol reference interval and critical value in non-tolerant individuals; 50 - 100 Impairment 100 Intoxication 100 - 250 Severe Poisoning 250 - 400 Deep/possible fatal coma Performed By: #### L501.9100 #### [facility] [address] [place], [address] PHOSPHORUS Collected: 03/01/2018 Status: F Source: [place] 6:52 PM [facility] TYPE CODE TESTS RESULT OUT OF RANGE REFERENCE UNITS LAB L501.2300 2.5-4.9 mg/dL Normal PHOS 3.5 Performed By: #### L501.2300, L501.5200 #### [facility] [address] [place], [address] MAGNESIUM Collected: 03/01/2018 Status: F Source: [place]INI 6:52 PM [facility] TYPE CODE TESTS RESULT OUT OF RANGE REFERENCE UNITS LAB L501.5200 1.6-2.6 mg/dL Normal MG 2.1 Performed By: #### L501.2300, L501.5200 #### [facility] [address] [place], [address] CHEST 1 VIEW Observed: 03/01/2018 Status: F Source: MALINI (PORTABLE) 6:46 PM [facility] Imaging Services [address] [place] [address] Chest 1 View (Portable) MR#: [id number] Acct: [id number] Name: MAISHA DESAI Rep #: [id number] : 1955 M 62 From: Joann Bass MD PCP: Steve BROWN,Saturnino Status: REG ER Study: Chest 1 View (Portable) Date of Exam: 03/01/18 Exam# [id number] Ordering Dr: Gil Edmond MD STUDY: X-RAY CHEST REASON FOR EXAM: Male, 62 years old. Status post fall. TECHNIQUE: Portable chest. COMPARISON: None. FINDINGS: The lungs are clear and expanded. There is no demonstrated pleural abnormality. There is mild cardiac enlargement. Normal mediastinum and raul. Normal visualized pulmonary arteries. Normal visualized aortic arch and descending thoracic aorta. Normal visualized thoracic spine. Normal visualized ribs, clavicles, and shoulders. There is no demonstrated abnormality of the visualized soft tissue structures of the upper abdomen. RAD/Chest 1 View (Portable) IMPRESSION: No acute process. Electronically Signed: Joann Bass MD at 19:36 EDT Tel , Service support , CC: Gil Edmond MD; Saturnino Wilson MD Production Line Operator: Signed BRAIN/HEAD WITHOUT Observed: 03/01/2018 Status: F Source: [place] CONTRAST 6:46 PM [facility] Imaging Services [address] [place] [address] Brain/Head without Contrast MR#: [id number] Acct: [id number] Name: MAISHA DESAI Rep #: [id number] : 1955 62 From: Joann Bass MD PCP: Saturnino Wilson MD Status: REG ER Study: Brain/Head without Contrast Date of Exam: 03/01/18 Exam# [id number] Ordering Dr: Gil Edmond MD STUDY: CT BRAIN WITHOUT CONTRAST REASON FOR EXAM: Male, 62 years old. Fall. RADIATION DOSAGE (If Supplied By Facility): CTDIvol = ( 44.99 ) mGy, DLP = ( 796.11 ) mGycm TECHNIQUE: Transaxial CT imaging of the brain was performed without administration of intravenous contrast material. Individualized dose optimization techniques were used for this CT. COMPARISON: None. FINDINGS: Normal soft tissue structures. Normal calvarium. Normal size ventricles and extra-axial spaces for the patient's age. Normal white matter tracts of the cerebral hemispheres. Normal basal ganglia and thalami. Normal brainstem. Normal cerebellum. There is no intracranial hemorrhage. There are no findings of an acute ischemic infarction. There is trace fluid in the right maxillary sinus consistent with acute sinusitis or occult trauma. There is mild mucosal thickening in the maxillary, sphenoid, and frontal sinuses consistent with chronic sinusitis. CT/Brain/Head without Contrast IMPRESSION: 1. No intracranial findings. 2. Fluid in the right maxillary sinus is consistent with occult facial fracture or acute sinusitis. 3. Chronic sinusitis. Electronically Signed: Joann Bass MD at 20:03 EDT Tel , Service support , CC: Gil Edmond MD; Saturnino Wilson MD Production Line Operator: Signed SPINE CERVICAL Observed: 03/01/2018 Status: F Source: [place] WITHOUT CONTRAS 6:46 PM [facility] Imaging Services [address] [place] [address] Spine Cervical without Contras MR#: [id number] Acct: [id number] Name: MAISHA DESAI Rep #: [id number] : 1955 M 62 From: Joann Bass MD PCP: Saturnino Wilson MD Status: REG ER Study: Spine Cervical without Contras Date of Exam: 03/01/18 Exam# [id number] Ordering Dr: Gil Edmond MD STUDY: CT CERVICAL SPINE WITHOUT CONTRAST REASON FOR EXAM: Male, 62 years old. Fall. RADIATION DOSAGE (If Supplied By Facility): CTDIvol = ( 33.99 ) mGy, DLP = ( 651.44 ) mGycm TECHNIQUE: High resolution transaxial imaging was performed without contrast material. Sagittal and coronal images were reconstructed. Individualized dose optimization techniques were used for this CT. COMPARISON: None FINDINGS: Normal craniovertebral junction. Normal anterior atlantoaxial articulation. Normal odontoid process. There is reversal of the normal cervical lordosis. Vertebral body heights are well-maintained. No evidence of fracture. C2-3: Normal endplates. Normal disc height and morphology. Normal central canal. There is moderate left foraminal encroachment due to uncinate hypertrophy. C3-4: Normal endplates. Moderate disc space narrowing. There is a mild spondylotic bar. There is mild canal stenosis, predominantly due to shortened pedicles. There is severe foraminal stenosis bilaterally due to uncinate hypertrophy. C4-5: Normal endplates. Moderate disc space narrowing and 4 mm degenerative retrolisthesis. There is ossification of the posterior longitudinal ligament and a moderate left paracentral spur. Moderate canal stenosis is due to spondylosis, shortened pedicles, and retrolisthesis. There is severe foraminal stenosis due to uncinate hypertrophy. C5-6: Normal endplates. There is marked disc space narrowing. There is a spondylotic bar and right paracentral spondylotic protrusion. There is moderate canal stenosis due to spondylosis and shortened pedicles. Foraminal stenosis is moderate on the left and severe on the right. C6-7: Normal endplates. Normal disc height and morphology. Normal central canal and intervertebral neuroforamina. C7-T1: Normal endplates. Normal disc height and morphology. Normal central canal and intervertebral neuroforamina. Normal visualized soft tissue structures. CT/Spine Cervical without Contras IMPRESSION: 1. No evidence of cervical trauma. 2. Mild to moderate canal stenosis from C3-4 through C5-6. 3. Moderate to severe foraminal stenosis from C2-3 through C5-6. Electronically Signed: Joann Bass MD at 20:14 EDT Tel , Service support , CC: Gil Edmond MD; Saturnino Wilson MD Production Line Operator: Signed CBC W/DIFF, AUTOMATED Collected: 08/27/2017 Status: F Source: [place] 3:53 PM [facility] TYPE CODE TESTS RESULT OUT OF RANGE REFERENCE UNITS LAB L100.1000 4.4-11.0 K/mm3 Normal WBC 9.4 LAB L100.1200 4.6-6.2 M/mm3 Low RBC 4.38 LAB L100.1300 13.0-16.5 g/dl Normal HGB 14.9 LAB L100.1400 40-54 % Normal HCT 43.2 LAB L100.1500 80-94 fL High MCV 98.6 LAB L100.1600 27.0-32.0 pg High MCH 34.0 LAB L100.1700 32-36 g/gl Normal MCHC 34.5 LAB L100.1810 11.6-14.6 % Normal RDW CV 12.8 LAB L100.1820 35.1-43.9 fl High RDW SD 46.3 LAB L100.1900 150-450 K/mm3 Normal PLT 194 LAB L100.2000 6.2-12.0 fl Normal MPV 10.4 LAB L100.2100 47-70 % Normal NEUT% 60.6 LAB L100.2200 19-41 % Normal LY% 29.2 LAB L100.2300 0-10 % Normal MONO% 7.7 LAB L100.2400 0-5 % Normal EO% 1.9 LAB L100.2500 0-1 % Normal BASO% 0.3 LAB L100.2550 0.0-0.9 % Normal IM GRAN % 0.300 Result Comment: IG% - Immature Granulocytes (promyelocytes, myelocytes and metamyelocytes) > 1% indicates that a LEFT SHIFT is Present. LAB L100.2620 2.0-7.7 X10 3/uL Normal Absolute Neut 5.7 LAB L100.2720 0.83-4.51 X10 3/ul Normal Absolute Lymph 2.73 Performed By: #### L100.0100 #### [facility] [address] [place], [place], [address] COMPREHENSIVE METABOLIC Collected: 08/27/2017 Status: F Source: [facility] 3:53 PM [facility] [place] CODE TESTS RESULT OUT OF RANGE REFERENCE UNITS LAB L501.0100 74-106 mg/dL Normal GLU 82 Result Comment: Please note revised GLUCOSE reference range effective 2017. LAB L501.1000 7-18 mg/dL Normal BUN 14 LAB L501.1100 0.70-1.30 mg/dL Normal CREAT,SERUM 0.92 Result Comment: The validity of the calculated GFR AND GFRAA in patients over 70 years has not been determined. Clinical correlation is essential. LAB L501.1110 >60 mL/min Normal EST GFR 89 Result Comment: Non- GFR Calc LAB L501.1115 >60 mL/min Normal EST GFR - AA 107 Result Comment: GFR Calc LAB L501.1300 10-20 RATIO Normal BUN/CRE 15.3 LAB L501.1500 6.4-8.2 g/dL T Normal PROT 6.9 LAB L501.1800 3.2-5.0 g/dL Normal ALB 3.3 LAB L501.1950 2.2-4.2 g/dL Normal GLOB 3.6 LAB L501.2000 0.9-2.4 RATIO Normal A/G 0.9 LAB L501.2200 8.5-10.1 mg/dL CA Normal 8.5 LAB L501.4100 15-37 U/L Normal AST 21 LAB L501.4305 45-117 U/L Normal ALK P 111 LAB L501.4405 16-61 U/L Normal ALT 33 Result Comment: Please note revised ALT reference range effective 2017. LAB L501.4600 0.20-1.00 mg/dL Normal T BILI 0.80 LAB L501.5300 136-145 mmol/L Normal NA 141 LAB L501.5600 3.5-5.1 mmol/L Normal K 3.5 LAB L501.5900 98-107 mmol/L High CL 108 LAB L501.6100 21.0-32.0 mmol/L Normal CO2 27.0 LAB L501.6200 5-15 Normal GAP 6 Performed By: #### L500.4050, L500.4100, L501.2450, L501.6710 #### [facility] [address] [place], [address] LIPID PROFILE Collected: 08/27/2017 Status: F Source: [place] 3:53 PM [facility] [place] CODE TESTS RESULT OUT OF RANGE REFERENCE UNITS LAB L501.4900 200 mg/dL High CHOL 227 Result Comment: <200 mg/dL Desirable 200-240 mg/dL Borderline >240 mg/dL High Risk LAB L501.5000 mg/dL Normal TRIG 108 Result Comment: The drugs N-Acetylcysteine and Metamizole may falsely depress this assay. Serum Triglycerides Reference Interval Normal <150 mg/dL Borderline high 150 - 199 mg/dL High 200 - 499 mg/dL Very High > or = 500 mg/dL LAB L501.6400 mg/dL Normal HDL 44 Result Comment: The drugs N-Acetylcysteine and Metamizole may falsely depress this assay. Reference Range HDL <40 mg/dL Low HDL Cholesterol HDL >or= 60 mg/dL High HDL Cholesterol LAB L501.6500 0-130 mg/dL High LDL 161 LAB L501.6600 5-40 mg/dL Normal VLDL 22 Performed By: #### L500.4050, L500.4100, L501.2450, L501.6710 #### [facility] [address] [place], [address] LIPASE Collected: 08/27/2017 Status: F Source: [place] 3:53 PM [facility] [place] CODE TESTS RESULT OUT OF RANGE REFERENCE UNITS LAB L501.2450 73-393 U/L Normal LIPASE 81 Performed By: #### L500.4050, L500.4100, L501.2450, L501.6710 #### [facility] [address] [place], [address] CRP Collected: 08/27/2017 Status: F Source: [place] 3:53 PM [facility] [place] CODE TESTS RESULT OUT OF RANGE REFERENCE UNITS LAB L501.6710 0.0-3.0 mg/L High 8.87 C-REACTIVE PROT Result Comment: C-Reactive Protein (CRP) provides useful information for the diagnosis, therapy and monitoring of inflammatory processes and associated diseases. For the evaluation of Relative Risk for Cardiovascular Disease, a High Sensitivity CRP (HSCRP) should be ordered. Performed By: #### L500.4050, L500.4100, L501.2450, L501.6710 #### [facility] [address] [place], [address] ALLERGIES ALLERGIES DATE TYPE / CODE NAME / CODE REACTION SEVERITY SOURCE 07/17/2018 Drug No Known Unknown [facility] Allergy/4160 Allergies/F00 Hospital 36179(SNOMED 5062475(RXNOR Repository CT) M) ENCOUNTERS ENCOUNTERS ADMIT/DISCHARGE ACCOUNT ADMITTING ENCOUNTER LOCATION SOURCE NUMBER CLASS 07/17/2018/ [id number] Ambulatory BMSBuilding:B Tre[place] 9 7 [facility] Repository 07/09/2018/ [id number] Ambulatory BMSBuilding:B Malini 9 9 [facility] Repository 07/08/2018/ [id number] Emergency [place] Malini 9 9 [facility] ing:ED Repository 06/22/2018 [id number] Ambulatory Malini Treichlers 6 [facility] ing:CT Repository 06/18/2018 [id number] Ambulatory Treich[place] Treichlers 8 [facility] ing:LABSPEC Repository 06/14/2018 [id number] Ambulatory [place] Malini 5 [facility] ing:MFPLAB Repository 03/06/2018 [id number] Ambulatory Malini Malini 4 [facility] ing:MFPLAB Repository 03/02/2018 [id number] Ambulatory BMSBuilding:W Malini 0 [facility] Repository 03/01/2018/ [id number] White, Juliann Ambulatory Malini Malini 8 0 [facility] ing:MP1Uilf: Repository BO155Oar: 1 03/01/2018 [id number] WhiteJuliann Ambulatory BMSBuilding:B Tre[place] 1 [facility] Repository 03/01/2018 [id number] Cara Juliann Ambulatory BMSBuilding:B Malini 8 [facility] Repository 08/27/2017 [id number] Ambulatory Tre[place] Treichlers 4 [facility] ing:MFPLAB Repository PAYERS PAYERS ENCOUNTER GUARANTOR PAYER SUBSCRIBER SOURCE 07/17/2018 MAISHA J Primary MAISHA J Tre[place]lers [id number] [place] Insurance:ANTHEMPolic MILLERDOB: [facility] Number: [id number] Hospital [id number]: 330 [id number] Repository [phone] () Date:7937-97-77HT [address] [place] [address]48[address]HI: 07/17/2018 Secondary NOT GIVENUNK [place] Insurance:SELF PAY [facility] Number: Effective Repository Date:2018-07-12 07/09/2018 MAISHA J Primary MAISHA J Malini [id number] [place] Insurance:ANTHEMPolic MILLERDOB: [facility] Number: [id number] Hospital [id number]: 330 [id number] Repository [phone] () Date:7186-95-21JT [address] [place] [address] 87003UA: 07/09/2018 Secondary NOT GIVENUNK Malini Insurance:SELF PAY [facility] Number: Effective Repository Date:2018-07-09 07/08/2018 MAISHA Bradley Primary MAISHA [id number] [place] Insurance:ANTHEMPolic MILLERDOB: [facility] Number: [id number] Hospital [address]Jex: 330 [id number] Repository [phone] () Date:3630-64-82CU [facility] [id number], [place] [address]HV: 07/08/2018 Secondary NOT GIVENUNK [place] Insurance:SELF PAY [facility] Number: Effective Repository Date:2018-07-08 06/22/2018 MAISHA Bradley Primary MAISHA [id number] [place] Insurance:MEDICAL MILLERDOB: [facility] [id number] Hospital [address]Zmz: 330) Number: Repository [phone] () [id number] Date:7073-35-55QR [address] [address]AF: 06/22/2018 Secondary NOT GIVENUNK Malini Insurance:SELF PAY [facility] Number: Effective Repository Date:2018-06-21 06/18/2018 Maisha Bradley Primary Maisha [id number] [place] Insurance:MEDICAL MillerDOB: [facility] [id number] Hospital [address]Qkl: (330) Number: Repository [phone] () [id number] Date:6212-26-40YP [address] [address]YG: 06/18/2018 Secondary NOT GIVENUNK Malini Insurance:SELF PAY [facility] Number: Effective Repository Date:2018-06-18 06/14/2018 Maisha J Primary Maisha Desai[address] [place] Insurance:MEDICAL MillerDOB: [facility] [id number] Hospital [address]Fbe: (330) Number: Repository [phone] () [id number] Date:3401-91-97ZA [address] [address]SY: 06/14/2018 Secondary NOT GIVENUNK [place] Insurance:SELF PAY [facility] Number: Effective Repository Date:2018-06-14 03/06/2018 Maisha Bradley Primary Maisha Desai[address] [place] Insurance:MEDICAL MillerDOB: [facility] [id number] [id number]: (330) Number: Repository [phone] () [id number] Date:[id number] [address]KT: 03/06/2018 Secondary NOT GIVENUNK [place] Insurance:SELF PAY [facility] Number: Effective Repository Date:2018-03-06 03/02/2018 Maisha Bradley Primary Maisha Nayak [id number] [place] Insurance:MEDICAL MillerDOB: [facility] [id number] [id number]: (330) Number: Repository [phone] () [id number] Date:2816-77-53GJ [address] [address]CC: 03/02/2018 Secondary NOT GIVENUNK Malini Insurance:SELF PAY [facility] Number: Effective Repository Date:2018-03-02 03/01/2018 Maisha Bradley Primary Maisha Desai[address] [place] Insurance:MEDICAL MillerDOB: [facility] [id number] [id number]: (330) Number: Repository [phone] () [id number] Date:5432-94-05FZ[address] [address]CX: 03/01/2018 Secondary NOT GIVENUNK Malini Insurance:SELF PAY [facility] Number: Effective Repository Date:2018-03-01 03/01/2018 Maisha Bradley Primary Maisha Nayak [id number] [place] Insurance:MEDICAL MillerDOB: [facility] [id number] Hospital [address]Hkm: (330) Number: Repository [phone] () [id number] Date:[id number] [address]XB: 03/01/2018 Secondary NOT GIVENUNK Malini Insurance:SELF PAY [facility] Number: Effective Repository Date:2018-03-01 03/01/2018 Maisha J Primary Maisha Bradley Malinishahriar [id number] [place] Insurance:MEDICAL MillerDOB: [facility] [id number] Hospital [address]Kke: (330) Number: Repository [phone] () [id number] Date:7642-35-46EH[address] [address]WN: 03/01/2018 Secondary NOT GIVENUNK [place] Insurance:SELF PAY [facility] Number: Effective Repository Date:2018-03-01 08/27/2017 Maisha J Primary Maisha J Malini [id number] [place] Insurance:MEDICAL MillerDOB: [facility] [id number] Hospital [address]Dmk: Number: Repository [phone] [id number] (HP) Date:3434-86-97XH [address] [address]UG: 08/27/2017 Secondary NOT GIVENUNK Tre[place]lers Insurance:SELF PAY [facility] Number: Effective Repository Date:2017-08-27
== END ==
PROVIDERS: Family Provider Family Medicine; PCP Family Medicine; Visit Provider Family Medicine
DX: I10 Essential (primary) hypertension (principal); R10.13 Epigastric pain
CPT/HCPCS: 36415; 80053; 85025

== ENCOUNTER → 2018-06-18 08:52 | Outpatient (CLI) | payer OTHER, SELFPAY ==
[2018-06-20 15:11] LABS: H. PYLORI STOOL AG Negative (Negative)
--- OUTSIDE RECORDS SUMMARY | 2018-09-19 14:53 | XMS RPT_ITS ---
:1955 Author Organization OHIP Support Name Relationship Address Phone KAREN DESAI Unavailable [address] + [place] [address] R Unavailable Unavailable Unavailable DESAI, KAREN Unavailable [address] + [place] [address] R Unavailable Unavailable Unavailable DESAI, KAREN Unavailable [address] + [place] [address] R Unavailable Unavailable Unavailable DESAI, KAREN Unavailable [address] + [place] [address] R Unavailable Unavailable Unavailable DESAI, KAREN Unavailable [address] + [place] [address] R Unavailable Unavailable Unavailable DESAI, KAREN Unavailable [address] + [place] [address] R Unavailable Unavailable Unavailable DESAI, KAREN Unavailable [address] + [place] [address] R Unavailable Unavailable Unavailable DESAI, KAREN Unavailable [address] + [place] [address] R Unavailable Unavailable Unavailable DESAI, KAREN Unavailable [address] + [place] [address] R Unavailable Unavailable Unavailable DESAI, KAREN Unavailable [address] + [place] [address] R Unavailable Unavailable Unavailable DESAI, KAREN Unavailable [address] + [place] [address] R Unavailable Unavailable Unavailable DESAI, KAREN Unavailable [address] + [place] [address] R Unavailable Unavailable Unavailable Care Team Providers [...] E87.6 - Hypokalemia / Saturnino Wilson Active [place] E87.6(ICD-10) [facility] Repository 04/09/2018 Unknown R94.31 - Abnormal [place], Active [place] electrocardiogram [facility] [ECG] [EKG] / Hospital R94.31(ICD-10) Repository 04/09/2018 Unknown I10 - Essential [place], Active [place] (primary) hypertension [facility] / I10(ICD-10) Hospital Repository 04/09/2018 Unknown R55 - Syncope and [place], Active [place] collapse / R55(ICD-10) [facility] Repository PROCEDURES PROCEDURES No Procedure Records FoundRESULTS RESULTS SURGERY VISIT REPORT Observed: 07/17/2018 Status: F Source: [facility] 9:24 AM [facility] REPOSITORY [facility] [address] [place] [address] [address] [place] [address] OFFICE VISIT Date of Service: 07/17/18 MR#: [id number] Acct: [id number] Name: LLOYDMAISHA J Rep #: [id number] : 1955 Provider: Catarino Herbert MD Age/Sex: 62/M Location: [facility] Status: Signed Intake Vital Signs07/17/18 Body Mass Index (BMI) 41.1 07/17/18 Height 5 ft 10 in 07/17/18 Weight: 302 lb 07/17/18 Body Mass Index (BMI) 43.3 Intake Visit Reasons: Umbilical Hernia AND Refulx Chief Complaint: Passed out per my Commercial Marketing Specialist Required: No Is patient in pain?: No [...] mg PO DAILY 07/17/18 [History Confirmed 07/17/18] [facility] Medical History Alcohol intoxication (Acute) Fall (Acute) [...] a recent CT scan done at the [facility] showing a small incisional umbilical hernia. March [...] July 2017 had imaging done at the [facility] because of a alcohol intoxicated fall. He states that he goes to [employer] 6 times per week. He claims that [...] LEAD ELECTROCARDIOGRAM Observed: 07/10/2018 Status: F Source: [facility] 2:35 PM [facility] REPOSITORY [facility] Cardiovascular Services [address] [place] [address] 12 Lead EKG 07/08/18923 MR#: [id number] Acct: [id number] Name: MAISHA DESAI Rep #: [id number] : 1955 62 From: Brandon Simmons MD [...] Abnormal ECG Confirmed by TROY BROWN, BRANDON ([id number]), editor publications TOBI DESAI (55) on 07/10/2018 2:34:52 PM Referred By: Saturnino Wilson Confirmed By:BRANDON SIMMONS MD 07/10/18 1434 Date Brandon Simmons MD CC: Gil Edmond MD; Saturnino Wilson MD Signed EMERGENCY DEPARTMENT Observed: 07/08/2018 Status: F Source: [facility] SUMMARY 5:07 PM [facility] REPOSITORY [facility] Medical Records Department [address] [place] [address] Emergency Department Summary 07/08/18 1145 MR#: [id number] Acct: [id number] Name: MAISHA DESAI Rep #: [id number] : 1955 62 From: Gil Edmond MD [...] Enlarged thyroid This note was generated with [employer] dictation software. It may contain incorrect words, [...] problems, contact your Primary Care Provider. Call [employer] Experience [facility] ([phone]) or report to the closest Emergency Room. Call 911 if necessary. 07/08/18 7907 <Electronically signed by Gil Edmond MD> Date Gil Edmond MD Cosigner Signature (If Indicated): Date CC: Saturnino Wilson MD DISCHARGE INSTRUCTION Observed: 07/08/2018 Status: F Source: [facility] 5:07 PM [facility] REPOSITORY [facility] Medical Records Department [address] [place] [address] [place] [address] Discharge Instruction 07/08/18 1150 MR#: [id number] Acct: [id number] Name: MAISHA DESAI Rep #: [id number] : 1955 62 From: Gil Edmond MD PCP: Saturnino Wilson MD Status: [facility] ER ED Disposition - Plan for ED Patient: Chief Complaint: Upper Extremity Injury Instructions: ED Epigastric Pain [facility] Referrals: Saturnino Wilson MD [Primary Care Provider] - What to do if you have Problems For any increased pain, shortness of breath, bleeding, nausea or vomiting, chest pain, or any unexpected problems, contact your Primary Care Provider. Call [employer] Experience Registry ([phone]) or report to the closest Emergency Room. Call 911 if necessary. 07/08/18 1707 <Electronically signed by Gil Edmond MD> Date Gil Edmond MD Cosigner Signature (If Indicated): Date CC: Saturnino Wilson MD CTA ABDOMEN W/WO Observed: 07/08/2018 Status: F Source: [place] CONTRAST 11:56 AM [facility] REPOSITORY [facility] Imaging Services [address] [place] [address] CTA Abdomen W/WO Contrast MR#: [id number] Acct: [id number] Name: MAISHA DESAI Rep #: [id number] : 1955 M 62 From: Gianluca Vila MD PCP: Saturnino Wilson MD Status: [facility] ER Study: CTA Abdomen W/WO Contrast Date of Exam: 07/08/18 Exam# [id number] Ordering Dr: Gil Edmond MD STUDY: CTA [...] Gianluca Vila MD at 12:42 EST Tel [phone], Service support , CC: Gil Edmond MD; Saturnino Wilson MD Suction Plate Carrier Cleaner: Signed CTA CHEST W/WO Observed: 07/08/2018 Status: F Source: [place] CONTRAST 11:56 AM [facility] REPOSITORY [facility] Imaging Services [address] [place] [address] CTA Chest W/WO Contrast MR#: [id number] Acct: [id number] Name: MAISHA DESAI Rep #: [id number] : 1955 M 62 From: Gianluca Vila MD PCP: Saturnino Wilson MD Status: [facility] ER Study: CTA Chest W/WO Contrast Date of Exam: 07/08/18 Exam# [id number] Ordering Dr: Gil Edmond MD STUDY: CTA [...] Gianluca Vila MD at 12:46 EST Tel [phone], Service support , CC: Gil Edmond MD; Saturnino Wilson MD Suction Plate Carrier Cleaner: Signed CBC W/DIFF, AUTOMATED Collected: 07/08/2018 Status: F Source: [place] 9:50 AM [facility] REPOSIT[facility] TYPE CODE TESTS RESULT OUT OF [...] Lymph 1.84 Performed By: #### L100.0100 #### [facility] [place], [address] COMPREHENSIVE METABOLIC Collected: 07/08/2018 Status: F [facility]50 AM [facility] REPOS[facility] TYPE CODE TESTS RESULT OUT OF [...] Performed By: #### L500.4050, L501.2450, L501.4010 #### [facility] [address] [place], [address] LIPASE Collected: 07/08/2018 Status: F Source: [facility] 9:50 AM [facility] REPOSITORY TYPE CODE TESTS RESULT OUT OF RANGE REFERENCE UNITS LAB L501.2450 73-393 U/L Normal LIPASE 98 Performed By: #### L500.4050, L501.2450, L501.4010 #### [facility] [address] [facility] [place], [address] TROPONIN-I Collected: 07/08/2018 Status: F Source: [facility] 9:50 AM [facility] REPOSITORY TYPE CODE TESTS RESULT OUT OF RANGE REFERENCE UNITS LAB L501.4010 <0.045 ng/mL Normal < 0.015 TROPONIN-I Result Comment: TROPONIN-I EXPECTED VALUES <0.045 Negative 0.045 - 0.590 Consistent with Cardiac Damage > OR = 0.600 Critical Value Not every elevated troponin is indicative of ID. These values should be used with clinical judgement in examining the patient's clinical picture for diagnosis. To establish a diagnosis of ID versus myocardial injury, there must be a demonstrated rise and/or fall in the troponin values, in addition to ischemic symptoms, EKG changes, new regional wall motion abnormality, and/or angiographical evidence. PLEASE NOTE: REFERENCE RANGES EDITED 17 Performed By: #### L500.4050, L501.2450, L501.4010 #### [facility] [address] [facility] [place], [address] CHEST 1 VIEW Observed: 07/08/2018 Status: F Source: [facility] (PORTABLE) 9:39 AM [facility] REPOSITORY [facility] Imaging Services [address] [facility] [place] [address] Chest 1 View (Portable) MR#: [id number] Acct: [id number] Name: MAISHA DESAI Rep #: [id number] : 1955 M 62 From: Gianluca Vila MD PCP: Saturnino Wilson MD Status: [facility] ER Study: Chest 1 View (Portable) Date of Exam: 07/08/18 Exam# [id number] Ordering Dr: Gil Edmond MD STUDY: X-RAY [...] Gianluca Vila MD at 10:48 EST Tel [phone], Service support , CC: Gil Edmond MD; Saturnino Wilson MD Suction Plate Carrier Cleaner: Signed ABDOMEN WITHOUT IV Observed: 06/22/2018 Status: F Source: [place] CONTRAST 8:53 AM [facility] REPOSITORY [facility] Imaging Services [address] [place] [address] Abdomen without IV Contrast MR#: [id number] Acct: [id number] Name: MAISHA DESAI Rep #: [id number] : 1955 M 62 From: Santos Lopez MD PCP: Saturnino Wilson MD Status: REG CLI Study: Abdomen without IV Contrast Date of Exam: 06/22/18 Exam# [id number] Ordering Dr: Saturnino Wilson MD STUDY: CT [...] Mortality; Evelio Wolfe, et al. Circulation, Aug 2000;103:6002-1069. 5. Small, fat-containing umbilical hernia. 6. Degenerative changes of the spine and sacroiliac joints. Electronically Signed: Alex Lopez MD at 9:18 EST , Service support , CC: Saturnino Wilson MD Suction Plate Carrier Cleaner: Signed H. PYLORI STOOL AG Collected: 06/18/2018 Status: F Source: [place] 12:00 AM [facility] REPOSITORY TYPE CODE TESTS RESULT OUT OF RANGE REFERENCE UNITS LAB L3100.1950 Negative Normal H PYLORI Negative STL AG Result Comment: Performed at: [facility] [id number] Tour Conductor: Cherri Carson MD, Phone: [phone] Performed By: #### L3100.1950 #### [facility] (refer to report for specific site) refer to report for address and phone number CBC W/DIFF, AUTOMATED Collected: 06/14/2018 Status: F Source: [place] 9:18 AM [facility] REPOSITORY TYPE CODE TESTS RESULT OUT OF [...] Lymph 1.87 Performed By: #### L100.0100 #### [facility] [address] [place], [address] COMPREHENSIVE METABOLIC Collected: 06/14/2018 Status: F Source: [facility] 9:18 AM [facility] REPOSIT[facility] TYPE CODE TESTS RESULT OUT OF [...] GAP 8 Performed By: #### L500.4050 #### [facility] [address] [facility] [place], [address] 12 LEAD ELECTROCARDIOGRAM Observed: 03/06/2018 Status: F Source: [facility] 1:18 PM [facility] REPOSITORY [facility] Cardiovascular Services [address] [place] [address] 12 Lead EKG 03/02/18 0507 MR#: [id number] Acct: [id number] Name: MAISHA DESAI Mirna Rep #: [id number] : 1955 62 From: Brandon Simmons MD Attending Dr: Luis Eduardo Jones M.D. Status: DIS JAMIE Ordering Dr: Juliann Marroquin Date: 03/02/18 [place] [facility] Sex: M C Admitted: 03/01/18 Test Reason [...] (limb leads) Confirmed by TROY BROWN, BRANDON ([id number]), editor publications TOBI DESAI (56) on 03/06/2018 1:18:04 PM Referred By: CARA Confirmed By:BRANDON SIMMONS MD 03/06/18 1318 Date Brandon Simmons MD CC: Juliann Marroquin; Saturnino Wilson MD; Luis Eduardo Jones M.D. Signed BASIC METABOLIC Collected: 03/06/2018 Status: F Source: [place] PROFILE (BMP) 12:03 PM [facility] REPOSITORY TYPE CODE TESTS RESULT OUT OF [...] 9 Performed By: #### L500.2500, L501.5200 #### [facility] [address] [place], [place], [address] MAGNESIUM Collected: 03/06/2018 Status: F Source: [place] 12:03 PM [facility] REPOSITORY TYPE CODE TESTS RESULT OUT OF RANGE REFERENCE UNITS LAB L501.5200 1.6-2.6 mg/dL Normal MG 2.0 Performed By: #### L500.2500, L501.5200 #### [facility] [address] [place], [address] 12 LEAD ELECTROCARDIOGRAM Observed: 03/05/2018 Status: F Source: [place] 1:52 PM [facility] REPOSITORY [facility] Cardiovascular Services [address] [place] [address] 12 Lead EKG 03/01/18 1854 MR#: [id number] Acct: [id number] Name: MAISHA DESAI Rep #: [id number] : 1955 62 From: Gil Melendez MD Attending Dr: Luis Eduardo Jones M.D. Status: DIS JAMIE Ordering Dr: Gil Edmond MD Date: 03/01/18 [place] [facility] Sex: M C Admitted: 03/01/18 Test Reason [...] Borderline ECG Confirmed by GIL MELENDEZ ([id number]), editor publications TOBI DESAI (56) on 03/05/2018 1:51:43 PM Referred By: AMY Confirmed By:GIL MELENDEZ 03/05/18 1351 Date Gil Melendez MD CC: Gil Edmond MD; Saturnino Wilson MD; Luis Eduardo Jones M.D. Signed DISCHARGE SUMMARY Observed: 03/02/2018 Status: F Source: [place] 11:46 AM [facility] REPOSITORY [facility] Medical Records Department [address] [place] [address] Discharge Summary 03/02/18 1142 MR#: [id number] Acct: [id number] Name: MAISHA DESAI Rep #: [id number] : 1955 62 From: Luis Eduardo Jones MD PCP: Saturnino Wilson MD Status: ADM JAMIE Y [place] [facility] [id number] Discharge Date and Diagnosis - Problem List [...] anxious to go home Ok for discharge Recordist Chief on alcohol use with moderation [] Discharge [...] PO DAILY #30 tab Primary Care Physician: Sautrnino Wilson MD [Primary Care Provider] - Medical Necessity - Tobacco Use Smoking Status: Current every day smoker Tobacco Use: Cigarettes Meaningful Use Info Meaningful Use Diagnoses (Choose all that apply): None applicable Code Visit OBSV Patrice AND M: 35002 Observation care discharge 03/02/18 1146 <Electronically signed by Luis Eduardo Jones MD> Date Luis Eduardo Jones MD Cosigner Signature (if applicable): Date CC: Saturnino Wilson MD; Luis Eduardo Jones M.D. Signed DISCHARGE INSTRUCTION Observed: 03/02/2018 Status: F Source: [place] 11:41 AM [facility] REPOSITORY [facility] Medical Records Department [address] [address] Instructions for Home/Discharge Instructions 03/02/18 1139 MR#: [id number] Acct: [id number] Name: MAISHA DESAI Rep #: [id number] : 1955 62 From: Luis Eduardo Jones [...] 03/02/2018 Status: F Source: [place] 4:10 AM [facility] REPOSITORY TYPE CODE TESTS RESULT OUT OF [...] Lymph 2.35 Performed By: #### L100.0100 #### [facility] [address] [place], [address] BASIC METABOLIC Collected: 03/02/2018 Status: F Source: [place] PROFILE (BMP) 4:10 AM [facility] REPOSITORY TYPE CODE TESTS RESULT OUT OF [...] GAP 11 Performed By: #### L500.2500 #### [facility] [address] [place], [address] TROPONIN-I Collected: 03/02/2018 Status: F Source: [place] 4:10 AM [facility] REPOSITORY Order Comment: 'TROP' Serial specimen #1, #2 or #3: 3 TYPE CODE TESTS RESULT OUT OF RANGE REFERENCE UNITS LAB L501.4010 <0.045 ng/mL Normal < 0.015 TROPONIN-I Result Comment: TROPONIN-I EXPECTED VALUES <0.045 Negative 0.045 - 0.590 Consistent with Cardiac Damage > OR = 0.600 Critical Value Not every elevated troponin is indicative of ID. These values should be used with clinical judgement in examining the patient's clinical picture for diagnosis. To establish a diagnosis of ID versus myocardial injury, there must be a demonstrated rise and/or fall in the troponin values, in addition to ischemic symptoms, EKG changes, new regional wall motion abnormality, and/or angiographical evidence. PLEASE NOTE: REFERENCE RANGES EDITED 17 Performed By: #### L501.4010 #### [facility] [address] [place], [address] EMERGENCY DEPARTMENT Observed: 03/01/2018 Status: F Source: [facility] SUMMARY 11:38 PM [facility] REPOSITORY [facility] Medical Records Department [address] [place] [address] Emergency Department Summary 03/01/18 2105 MR#: [id number] Acct: [id number] Name: MAISHA DESAI Rep #: [id number] : 1955 62 From: Gil Edmond MD [...] 1. Syncope This note was generated with [employer] dictation software. It may contain incorrect words, [...] your Primary Care Provider. Call [facility] ([phone]) or report to the closest Emergency Room. Call 911 if necessary. 03/01/18 1387 <Electronically signed by Gil Edmond MD> Date Gil Edmond MD Cosigner Signature (If Indicated): Date CC: Saturnino Wilson MD TROPONIN-I Collected: 03/01/2018 Status: F Source: [place] 10:20 PM [facility] REPOSITORY Order Comment: 'TROP' Serial specimen #1, #2 or #3: 2 TYPE CODE TESTS RESULT OUT OF RANGE REFERENCE UNITS LAB L501.4010 <0.045 ng/mL Normal < 0.015 TROPONIN-I Result Comment: TROPONIN-I EXPECTED VALUES <0.045 Negative 0.045 - 0.590 Consistent with Cardiac Damage > OR = 0.600 Critical Value Not every elevated troponin is indicative of ID. These values should be used with clinical judgement in examining the patient's clinical picture for diagnosis. To establish a diagnosis of ID versus myocardial injury, there must be a demonstrated rise and/or fall in the troponin values, in addition to ischemic symptoms, EKG changes, new regional wall motion abnormality, and/or angiographical evidence. PLEASE NOTE: REFERENCE RANGES EDITED 17 Performed By: #### L501.4010 #### [facility] [address] [place], [address] URINE DRUG SCREEN Collected: 03/01/2018 Status: F Source: [place] ([facility]) 10:00 PM [facility] REPOSITORY Order Comment: List of Drugs Taken [...] Normal NEGATIVE Performed By: #### L505.5000 #### [facility] [address] [place], [address] HISTORY AND PHYSICAL Observed: 03/01/2018 Status: F Source: [facility] EXAM 9:09 PM [facility] REPOSITORY [facility] Medical Records Department [address] [place] [address] History and Physical 03/01/182039 MR#: [id number] Acct: [id number] Name: MAISHA DESAI Rep #: [id number] : 1955 62 From: Juliann Marroquin PCP: Saturnino Wilson MD Status: ADM JAMIE Y Location: [place] [address] Problem List (1) Alcohol intoxication Status: Acute [...] use, EtOH Abuse who presents to the [facility] ED on 03/01/18 following mechanical fall while [...] use, EtOH Abuse who presents to the [facility] ED on 03/01/18 following mechanical fall while [...] and requested observation overnight. Will admit to CT, place on a monitored bed, cycle enzymes [...] results. Code Visit OBSV E AND M: 80045 Initial observation care L3 03/01/182108 <Electronically signed by Juliann Marroquin > Date Juliann Marroquin Cosigner Signature: Date (if applicable) CC: Juliann Marroquin; Saturnino Wilson MD Signed CBC W/DIFF, AUTOMATED Collected: 03/01/2018 Status: F Source: [facility] 6:52 PM [facility] REPOSITORY TYPE CODE TESTS RESULT OUT OF [...] Lymph 2.64 Performed By: #### L100.0100 #### [facility] [address] [place], [address] BASIC METABOLIC Collected: 03/01/2018 Status: F Source: [place] PROFILE (BMP) 6:52 PM [facility] REPOSITORY TYPE CODE TESTS RESULT OUT OF [...] 14 Performed By: #### L500.2500, L501.4010 #### [facility] [address] [place], [address] TROPONIN-I Collected: 03/01/2018 Status: F Source: [facility] 6:52 PM [facility] REPOSITORY TYPE CODE TESTS RESULT OUT OF RANGE REFERENCE UNITS LAB L501.4010 <0.045 ng/mL Normal < 0.015 TROPONIN-I Result Comment: TROPONIN-I EXPECTED VALUES <0.045 Negative 0.045 - 0.590 Consistent with Cardiac Damage > OR = 0.600 Critical Value Not every elevated troponin is indicative of ID. These values should be used with clinical judgement in examining the patient's clinical picture for diagnosis. To establish a diagnosis of ID versus myocardial injury, there must be a demonstrated rise and/or fall in the troponin values, in addition to ischemic symptoms, EKG changes, new regional wall motion abnormality, and/or angiographical evidence. PLEASE NOTE: REFERENCE RANGES EDITED 17 Performed By: #### L500.2500, L501.4010 #### [facility] [address] [facility] [place], [address] ALCOHOL, BLOOD Collected: 03/01/2018 Status: F Source: [facility] (MEDICAL)-SERUM 6:52 PM [facility] REPOSITORY TYPE CODE TESTS RESULT OUT OF [...] fatal coma Performed By: #### L501.9100 #### [facility] [address] [place], [address] PHOSPHORUS Collected: 03/01/2018 Status: F Source: [facility] 6:52 PM [facility] REPOSITORY TYPE CODE TESTS RESULT OUT OF RANGE REFERENCE UNITS LAB L501.2300 2.5-4.9 mg/dL Normal PHOS 3.5 Performed By: #### L501.2300, L501.5200 #### [facility] [address] [place], [address] MAGNESIUM Collected: 03/01/2018 Status: F Source: [place] 6:52 PM [facility] REPOSITORY TYPE CODE TESTS RESULT OUT OF RANGE REFERENCE UNITS LAB L501.5200 1.6-2.6 mg/dL Normal MG 2.1 Performed By: #### L501.2300, L501.5200 #### [facility] [address] [place], [address] CHEST 1 VIEW Observed: 03/01/2018 Status: F Source: [place] (PORTABLE) 6:46 PM [facility] REPOSITORY [facility] Imaging Services [address] [place] [address] Chest 1 View (Portable) MR#: [id number] Acct: [id number] Name: MAISHA DESAI Rep #: [id number] : 1955 M 62 From: Joann Bass MD PCP: Steve BROWN,Saturnino Status: REG ER Study: Chest 1 View (Portable) Date of Exam: 03/01/18 Exam# [id number] Ordering Dr: Gil Edmond MD STUDY: X-RAY [...] (Portable) IMPRESSION: No acute process. Electronically Signed: Jonan Bass MD at 19:36 EDT Tel , Service support , CC: Gil Edmond MD; Saturnino Wilson MD Suction Plate Carrier Cleaner: Signed BRAIN/HEAD WITHOUT Observed: 03/01/2018 Status: F Source: [facility] CONTRAST 6:46 PM [facility] REPOSITORY [facility] Imaging Services [address] [place] [address] Brain/Head without Contrast MR#: [id number] Acct: [id number] Name: MAISHA DESAI Rep #: [id number] : 1955 62 From: Joann Bass MD PCP: Saturnino Wilson MD Status: REG ER Study: Brain/Head without Contrast Date of Exam: 03/01/18 Exam# [id number] Ordering Dr: Gil Edmond MD STUDY: CT [...] CC: Gil Edmond MD; Saturnino Wilson MD Suction Plate Carrier Cleaner: Signed SPINE CERVICAL Observed: 03/01/2018 Status: F Source: [place] WITHOUT CONTRAS 6:46 PM [facility] REPOSITORY [facility] Imaging Services [address] [place] [address] Spine Cervical without Contras MR#: [id number] Acct: [id number] Name: MAISHA DESAI Rep #: [id number] : 1955 M 62 From: Joann Bass MD PCP: Saturnino Wilson MD Status: REG ER Study: Spine Cervical without Contras Date of Exam: 03/01/18 Exam# [id number] Ordering Dr: Gil Edmond MD STUDY: CT [...] CC: Gil Edmond MD; Saturnino Wilson MD Suction Plate Carrier Cleaner: Signed CBC W/DIFF, AUTOMATED Collected: 08/27/2017 Status: F Source: [facility] 3:53 PM [facility] REPOSIT[facility] TYPE CODE TESTS RESULT OUT OF [...] Lymph 2.73 Performed By: #### L100.0100 #### [facility] [address] [place], [address] COMPREHENSIVE METABOLIC Collected: 08/27/2017 Status: F Source: [facility] 3:[facility] REPOSITORY TYPE CODE TESTS RESULT OUT OF [...] By: #### L500.4050, L500.4100, L501.2450, L501.6710 #### [facility] [address] [place], [address] LIPID PROFILE Collected: 08/27/2017 Status: F Source: [facility] 3:[facility] PM [facility] REPOSITORY TYPE CODE TESTS RESULT OUT OF [...] By: #### L500.4050, L500.4100, L501.2450, L501.6710 #### [facility] [address] [place], [address] LIPASE Collected: 08/27/2017 Status: F Source: [facility] 3:53 PM [facility] REPOSITORY TYPE CODE TESTS RESULT OUT OF RANGE REFERENCE UNITS LAB L501.2450 73-393 U/L Normal LIPASE 81 Performed By: #### L500.4050, L500.4100, L501.2450, L501.6710 #### [facility] [address] [place], [address] CRP Collected: 08/27/2017 Status: F Source: [facility] 3:53 PM [facility] REPOSITORY TYPE CODE TESTS RESULT OUT OF RANGE REFERENCE UNITS LAB L501.6710 0.0-3.0 mg/L High 8.87 C-REACTIVE PROT Result Comment: C-Reactive Protein (CRP) provides useful information for the diagnosis, therapy and monitoring of inflammatory processes and associated diseases. For the evaluation of Relative Risk for Cardiovascular Disease, a High Sensitivity CRP (HSCRP) should be ordered. Performed By: #### L500.4050, L500.4100, L501.2450, L501.6710 #### [facility] [address] [place], [address] ALLERGIES ALLERGIES DATE TYPE / CODE NAME / CODE REACTION SEVERITY SOURCE 07/17/2018 Drug No Known Unknown [facility] Allergy/4160 Allergies/F00 Hospital 99889(SNOMED 5040520(RXNOR Repository CT) M) ENCOUNTERS ENCOUNTERS ADMIT/DISCHARGE ACCOUNT ADMITTING ENCOUNTER LOCATION SOURCE NUMBER CLASS 07/17/2018/ [id number] Ambulatory BMSBuilding:B [place] [facility] 7 [facility] Repository 07/09/2018/ [id number] Ambulatory BMSBuilding:B [place] 9 9 [facility] Repository 07/08/2018/ [id number] Emergency [place] 9 9 [facility] ing:ED Repository 06/22/2018 [id number] Ambulatory [place] 6 [facility] ing:CT Repository 06/18/2018 [id number] Ambulatory [place] 8 [facility] ing:LABSPEC Repository 06/14/2018 [id number] Ambulatory [place] 5 [facility] ing:MFPLAB Repository 03/06/2018 [id number] Ambulatory [place] 4 [facility] ing:MFPLAB Repository 03/02/2018 [id number] Ambulatory BMSBuilding:W [place] 0 [facility] Repository 03/01/2018/ [id number] White, Juliann Ambulatory [place] 8 0 [facility] ing:QK4Wffx: Repository [id number]: 1 03/01/2018 [id number] WhiteJuliann Ambulatory BMSBuilding:B [place] 1 [facility] Repository 03/01/2018 [id number] Cara Juliann Ambulatory BMSBuilding:B [place] 8 [facility] Repository 08/27/2017 [id number] Ambulatory [place] 4 [facility] ing:MFPLAB Repository PAYERS PAYERS ENCOUNTER GUARANTOR PAYER SUBSCRIBER SOURCE 07/17/2018 MAISHA J Primary MAISHA J [place] [id number] [place] Insurance:ANTHEMPolic MILLERDOB: [facility] Number: [id number] Hospital [address]Jqa: 330 [id number] Repository [phone] () Date:0669-48-81KO [address] [place] [address] 31489MU: 07/17/2018 Secondary NOT GIVENUNK [place] Insurance:SELF PAY [facility] Number: Effective Repository Date:2018-07-12 07/09/2018 MAISHA J Primary MAISHA J [place] [id number] [place] Insurance:ANTHEMPolic MILLERDOB: [facility] Number: [id number] Hospital [address]Mub: 330 [id number] Repository [phone] () Date:8358-66-84AQ [address] [place] [address] 862[address]SF: 07/09/2018 Secondary NOT GIVENUNK [place] Insurance:SELF PAY [facility] Number: Effective Repository Date:2018-07-09 07/08/2018 MAISHA Bradley Primary MAISHA [id number] [place] Insurance:ANTHEMPolic MILLERDOB: [facility] Number: [id number] Hospital [address]Jtv: 330 [id number] Repository [phone] () Date:3874-21-30TK [facility] [address]97100[place], [place] [address]LL: 07/08/2018 Secondary NOT GIVENUNK [place] Insurance:SELF PAY [facility] Number: Effective Repository Date:2018-07-08 06/22/2018 MAISHA Bradley Primary MAISHA [id number] [place] Insurance:MEDICAL MILLERDOB: [facility] [id number] Hospital [address]Kyc: 330) Number: Repository [phone] () [id number] Date:6646-43-42HO [address] [address]XS: 06/22/2018 Secondary NOT GIVENUNK [place] Insurance:SELF PAY [facility] Number: Effective Repository Date:2018-06-21 06/18/2018 Maisha Bradley Primary Maisha [id number] [place] Insurance:MEDICAL MillerDOB: [facility] [id number] Hospital [address]Ayc: (330) Number: Repository [phone] () [id number] Date:3606-58-38VH [address] [address]QA: 06/18/2018 Secondary NOT GIVENUNK [place] Insurance:SELF PAY [facility] Number: Effective Repository Date:2018-06-18 06/14/2018 Maisha J Primary Maisha Desai[address] [place] Insurance:MEDICAL MillerDOB: [facility] [id number] Hospital [address]Asi: (330) Number: Repository [phone] () [id number] Date:6321-67-70OS [address] [address]PN: 06/14/2018 Secondary NOT GIVENUNK [place] Insurance:SELF PAY [facility] Number: Effective Repository Date:2018-06-14 03/06/2018 Maisha Bradley Primary Maisha Desai[address] [place] Insurance:MEDICAL MillerDOB: [facility] [id number] [id number]: (330) Number: Repository [phone] () [id number] Date:[id number] [address]JG: 03/06/2018 Secondary NOT GIVENUNK [place] Insurance:SELF PAY [facility] Number: Effective Repository Date:2018-03-06 03/02/2018 Maisha Bradley Primary Maisha Nayak [id number] [place] Insurance:MEDICAL MillerDOB: [facility] [id number] [place] [id number]: (330) Number: Repository [phone] () [id number] Date:5431-63-81FO [address] [address]RP: 03/02/2018 Secondary NOT GIVENUNK [place] Insurance:SELF PAY [facility] Number: Effective Repository Date:2018-03-02 03/01/2018 Maisha Bradley Primary Maisha Desai[address] [place] Insurance:MEDICAL MillerDOB: [facility] [id number] [id number]: (330) Number: Repository [phone] () [id number] Date:4919-53-65PI[address] [address]DP: 03/01/2018 Secondary NOT GIVENUNK [place] Insurance:SELF PAY [facility] Number: Effective Repository Date:2018-03-01 03/01/2018 Maisha Bradley Primary Maisha Nayak [id number] [place] Insurance:MEDICAL MillerDOB: [facility] [id number] [facility] [address]Pqd: (330) Number: Repository [phone] () [id number] Date:0600-78-83UI[address] [address]PF: 03/01/2018 Secondary NOT GIVENUNK [place] Insurance:SELF PAY [facility] Number: Effective Repository Date:2018-03-01 03/01/2018 Maisha J Primary Maisha Bradley Malinishahriar [id number] [place] Insurance:MEDICAL MillerDOB: [facility] [id number] Hospital [address]Eog: (330) Number: Repository [phone] () [id number] Date:2298-42-65WP[address] [address]EP: 03/01/2018 Secondary NOT GIVENUNK [place] Insurance:SELF PAY [facility] Number: Effective Repository Date:2018-03-01 08/27/2017 Maisha J Primary Maisha J Mal[place] [id number] [place] Insurance:MEDICAL MillerDOB: [facility] [id number] Hospital [address]Dkp: Number: Repository [phone] [id number] (HP) Date:3038-62-15PU [address] [address]HU: 08/27/2017 Secondary NOT GIVENUNK [place] Insurance:SELF PAY [facility] Number: Effective Repository Date:2017-08-27
== END ==
PROVIDERS: Family Provider Family Medicine; PCP Family Medicine; Visit Provider Family Medicine
DX: I10 Essential (primary) hypertension (principal); R10.13 Epigastric pain

== ENCOUNTER → 2018-06-22 08:48 | Outpatient (CLI) | payer OTHER, SELFPAY ==
--- NOTE | 2018-06-22 08:52 | CT_ITS ---
STUDY: CT ABDOMEN WITHOUT CONTRAST REASON FOR EXAM: Male, 62 years old. Epigastric pain x5 months. History of cholecystectomy. RADIATION DOSAGE (If Supplied By Facility): CTDIvol = ( 24.17 ) mGy, DLP = ( 938.63 ) mGycm TECHNIQUE: Transaxial images were obtained without intravenous contrast, and without oral contrast. Sagittal and coronal images were reconstructed. Individualized dose optimization techniques were used for this CT. COMPARISON: 2 AP supine films of the abdomen and pelvis March 02, 2016; abdominal ultrasound November 04, 2015. FINDINGS: The visualized lung bases are unremarkable. The visualized portions of the heart are within normal limits. Some portions of the liver, predominantly the superior posterior right lobe, show decreased density could reflect a degree of regional fatty infiltration. No defined focal hepatic mass, however. The portal vein diameter is 14 mm. There is non-visualization of the gallbladder, which may be secondary to either contraction or a prior cholecystectomy. The common bile duct diameter is roughly 5 mm. Normal spleen. Normal pancreas. Normal bilateral adrenal glands. Normal right kidney. There is focal scarring in the anterolateral upper pole of the left kidney. No hydronephrosis. Normal visualized stomach. Normal small intestine. There are occasional colonic diverticula consistent with diverticulosis. There are calcifications in the region of the appendix consistent with a prior appendectomy. There is moderate atherosclerotic calcification of the abdominal aorta and proximal iliac arteries, without a demonstrated aneurysm. The aortic diameter at its distal third is 2.3 x 2.2 cm. Normal inferior vena cava. There are several periaortic retroperitoneal lymph nodes that are upper normal in size. There is a small umbilical hernia containing fat. There are diffuse spondylotic degenerative changes of the visualized spine. Posterior endplate osteophytes impinging on the spinal canal noted at T9-10, T10-11, and L2-3. There are degenerative arthrosis of the visualized sacroiliac joints with anterior osseous bridging on the left. CT/Abdomen without IV Contrast IMPRESSION: 1. No clearly demonstrated source of patient's complaint. 2. Nonvisualized gallbladder, which may be surgically absent. 3. Occasional colonic diverticula without acute diverticulitis. No sign of bowel obstruction or suspicious bowel wall thickening. The appendix is surgically absent. 4. Moderate aortoiliac atherosclerotic calcific plaquing. There is no demonstrated aneurysm, the findings potential risk for future cardiovascular event, Abdominal Aortic Calcific Deposits Are an Important Predictor of Vascular Morbidity and Mortality; Evelio Wolfe, et al. Circulation, Aug 2000;103:6304-0692. 5. Small, fat-containing umbilical hernia. 6. Degenerative changes of the spine and sacroiliac joints. Electronically Signed: Alex Lopez MD at 9:18 EST , Service support ,
== END ==
PROVIDERS: Family Provider Family Medicine; PCP Family Medicine; Referring Provider Family Medicine; Visit Provider Family Medicine
DX: K57.30 Diverticulosis of large intestine without perforation or abscess without bleeding (principal); K42.9 Umbilical hernia without obstruction or gangrene; Z90.49 Acquired absence of other specified parts of digestive tract
CPT/HCPCS: 74150

== ENCOUNTER 2018-07-08 09:22 | Emergency (ER) | payer BC, SELFPAY ==
[2018-07-08 09:24] VITALS: BP 177/102; PULSE 78; RESP 16; TEMP 36.5; O2SAT 93; BMI 41.1
--- NOTE | 2018-07-08 09:38 | RAD_ITS ---
STUDY: X-RAY CHEST REASON FOR EXAM: Male, 62 years old. Chest pain and arm pain. TECHNIQUE: Single AP portable view of the chest. COMPARISON: Comparison is made with prior study dated March 01, 2018. FINDINGS: EKG electrodes are seen. Mild increased markings at the lung bases suggestive of atelectasis. There is no demonstrated pleural abnormality. There is mild cardiac enlargement. Normal mediastinum and raul. Normal visualized pulmonary arteries. There is atherosclerotic tortuosity of the aortic arch and descending thoracic aorta. Normal visualized thoracic spine. Normal visualized ribs, clavicles, and shoulders. There is no demonstrated abnormality of the visualized soft tissue structures of the upper abdomen. RAD/Chest 1 View (Portable) IMPRESSION: Mild increased markings at the lung bases suggestive of mild bibasilar atelectasis. Electronically Signed: Gianluca Vila MD at 10:48 EST Tel [phone], Service support ,
--- NOTE | 2018-07-08 09:38 | EKG12_ITS ---
Test Reason : CP Blood Pressure : / mmHG Vent. Rate : 076 BPM Atrial Rate : 076 BPM P-R Int : 162 ms QRS Dur : 090 ms QT Int : 390 ms P-R-T Axes : 047 037 028 degrees QTc Int : 438 ms Normal sinus rhythm Nonspecific ST abnormality Abnormal ECG Confirmed by TROY BROWN, JONATHAN ([id number]), city editor TOBI DESAI ([id number] on 07/10/2018 2:34:52 PM Referred By: Saturnino Wilson Confirmed By:JONATHAN SIMMONS MD
[2018-07-08 09:41] VITALS: O2SAT 92
[2018-07-08] MEDS: Ondansetron 4 MG/2 ML Vial IV (09:55)
[2018-07-08 09:58] LABS: Absolute Lymphocyte Count 1.84 X10^3/ul (0.83-4.51); Absolute Neutrophil Count 6.7 X10^3/uL (2.0-7.7); Basophil# 0.03 X10^3/uL; Basophil% 0.3 % (0-1); Eosinophils% 1.1 % (0-5); Hematocrit 46.7 % (40-54); Lymphocyte # 1.84 X10^3/ul (4.0); Lymphocyte % 19.3 % (19-41); Mean Corp Hgb Conc 34.3 g/gl (32-36); Mean Corpuscular Volume 99.2 fL (80-94); Mean Platelet Vol. 9.8 fl (6.2-12.0); Monocyte# 0.79 X10^3/uL; Monocyte% 8.3 % (0-10); Neutrophil # 6.72 X10^3/uL (2.7-7.7); Neutrophil % 70.7 % (47-70); Platelet Count 179 K/mm3 (150-450); RBC Distribution Width CV 12.8 % (11.6-14.6); RBC Distribution Width SD 46.7 fl (35.1-43.9); Red Blood Count 4.71 M/mm3 (4.6-6.2); White Blood Count 9.5 K/mm3 (4.4-11.0)
[2018-07-08 09:59] LABS: POSITIVE COUNT NO; POSITIVE DIFFERENTIAL NO; POSITIVE MORPHOLOGY NO
[2018-07-08 10:18] LABS: AST(SGOT) 33 U/L (15-37); Alanine Aminotransfer ALT/SGPT 65 U/L (16-61); Albumin, Serum 3.5 g/dL (3.2-5.0); Alkaline Phosphatase 123 U/L (45-117); Anion Gap 7 (5-15); BUN 24 mg/dL (7-18); BUN/Creat Ratio 19.7 RATIO (10-20); Calcium,Total 8.4 mg/dL (8.5-10.1); Chloride 107 mmol/L (98-107); Creatinine, Serum 1.22 mg/dL (0.70-1.30); EST Glomerular Filtration Rate 64 mL/min (>60); Est Glom Filt Rate - Afr Amer 77 mL/min (>60); Estimated Creatinine Clearance 63.99 ml/min; Globulin 3.6 g/dL (2.2-4.2); Glucose 117 mg/dL (74-106); Lipase 98 U/L (73-393); Potassium 4.1 mmol/L (3.5-5.1); Protein, Total 7.1 g/dL (6.4-8.2); Sodium Level 140 mmol/L (136-145)
[2018-07-08 11:27] VITALS: BP 149/92; PULSE 72; RESP 12; O2SAT 96
--- NOTE | 2018-07-08 11:45 | ED.VISSUMM ---
- ER Visit Summary Date of Service: 07/08/18 Chief Complaint: Feel rough History of Present Illness: The patient is a 62 M who feels rough today. He says he has pain in his left shoulder that started today. He denies any chest pain or shortness of breath. He does have epigastric pain that has been going on for months. He had a prior CT which was unremarkable. He feels weak and nauseated. Denies diaphoresis. Patient has a history of a stress test about 2 years ago. He said it was normal. He does bicycle about 9 miles per day. He has felt weak and has not been able to bicycle today. He does have a history of COPD, hypertension, hyperlipidemia, and sleep apnea. Physical Examination: Blood pressure 177/102. Otherwise vitals unremarkable. 93% on room air. Alert and oriented. No acute distress. Heart regular rate and rhythm. Lungs clear. Abdomen soft and nontender. Extremities nontender with no edema. He has good range of motion. Neurovascular intact distally. Skin appears normal. Test Results: EKG showed sinus rhythm at a rate of 76. No sign of ischemia or infarction. CBC, CMP, hepatic panel, lipase unremarkable. Chest x-ray shows bibasilar atelectasis. Emergency Department Course and Treatment: Patient declined pain medicine here. He was treated with Zofran. He was monitored. No new or different symptoms. Patient has very atypical symptoms, but does have many risk factors for heart disease. He had a normal stress test. I advised that the complete workup would involve admission. Patient declined admission. He would like to follow-up with his doctor. Nothing consistent with PE or dissection. No infectious symptoms. No trauma. I suspect his shoulder pain is myofascial pain. No indication for further testing. On reevaluation, the patient said that he felt a pulsing in his epigastric area. He had prior calcifications in his aorta. CTA was performed. He has chronic changes and an enlarged thyroid but no aneurysm or dissection. He will be discharged to follow-up with his doctor. Treatment Plan: As above Disposition: Discharge Impression: 1. Epigastric pain 2. Left shoulder pain 3. Enlarged thyroid This note was generated with [employer] dictation software. It may contain incorrect words, spelling, and punctuation that were not noted in review of the chart prior to signing ED Disposition - Plan for ED Patient: Chief Complaint: Upper Extremity Injury Instructions: ED Epigastric Pain [facility] Referrals: Saturnino Wilson MD [Primary Care Provider] -
--- NOTE | 2018-07-08 11:50 | ED.DEP ---
ED Disposition - Plan for ED Patient: Chief Complaint: Upper Extremity Injury Instructions: ED Epigastric Pain [facility] Referrals: Saturnino Wilson MD [Primary Care Provider] -
--- NOTE | 2018-07-08 11:56 | CT_ITS ---
STUDY: CTA OF THE ABDOMINAL AORTA REASON FOR EXAM: Male, 62 years old. History of abdominal aortic aneurysm. The patient presents with left shoulder pain and epigastric pain. RADIATION DOSAGE (If Supplied By Facility): CTDIvol = ( 38.91 ) mGy, DLP = ( 1674.58 ) mGycm TECHNIQUE: Axial CT angiography multi-detector data acquisition was obtained from the dome of the liver to the symphysis pubis following intravenous administration of 100 ml of Isovue 370 contrast. Axial images and MIP images were reconstructed from the axial data set. Post-processing of the angiographic images was performed, with multiplanar reformation and 3D reconstruction. Individualized dose optimization techniques were used for this CT. TECHNICAL QUALITY: Good COMPARISON: None. Descriptors of Narrowing: None (0%) Mild (< 50%) Moderate (50-70%) Severe (70-90%) Subtotal/Total Occlusion (90-100%) Non-Evaluable (technically non-diagnostic FINDINGS: Abdominal aorta: Atherosclerotic plaque formation of the abdominal aorta. There is no evidence of aneurysmal formation. No evidence of a dissection. Nonstenotic calcified plaques at the origins of the celiac artery and superior mesenteric artery. The patient is status post cholecystectomy. Small retroperitoneal lymph nodes. Small umbilical hernia. Degenerative disc disease of the lumbar spine. CT/CTA Abdomen W/WO Contrast IMPRESSION: Scattered calcification of the abdominal aorta with no evidence of aneurysm formation. Electronically Signed: Gianluca Vila MD at 12:42 EST Tel [phone], Service support ,
--- NOTE | 2018-07-08 11:56 | CT_ITS ---
STUDY: CTA CHEST REASON FOR EXAM: Male, 62 years old. History of thoracic aortic aneurysm. Patient presents with a history of left shoulder pain. No known injury. RADIATION DOSAGE (If Supplied By Facility): CTDIvol = ( 38.91 ) mGy, DLP = ( 1674.58 ) mGycm TECHNIQUE: The examination was performed with the intravenous administration of 100 ml of Isovue 370 contrast material. Post-processing of the angiographic images was performed, with multiplanar reformation and 3D reconstruction. Individualized dose optimization techniques were used for this CT. COMPARISON: None. FINDINGS: Mild enlargement of the thyroid gland more prominent on the right side. Benign appearing bilateral axillary lymph nodes. Normal enhancement of the main pulmonary artery and right and left pulmonary arteries. Normal enhancement of the bilateral peripheral pulmonary arteries. There is no demonstrated pulmonary embolism. There is atherosclerotic calcification of the aortic arch with tortuosity. There is no demonstrated aortic dissection. There are calcifications of the coronary arteries. There are visualized mediastinal lymph nodes, which are within normal size limits, and with normal morphology. Normal hilar regions. Normal visualized trachea and bronchi. The lungs are well expanded. Subpleural blebs are seen in the lateral superior aspect of the right upper lobe suggestive of bronchial scarring. There is also evidence of a several small subpleural blebs in the left lung apex. Mild degree of increased markings at the lung bases suggestive of bibasilar atelectasis and/or scarring. Normal pleura. Normal chest wall structures. There are degenerative changes of thoracic spine. Normal visualized upper abdomen. CT/CTA Chest W/WO Contrast IMPRESSION: There is no evidence of aortic dissection. Findings suggestive of mild atelectasis and/or scarring at the lung bases as well as in the upper lobes. Enlargement of the thyroid gland. Electronically Signed: Gianluca Vila MD at 12:46 EST Tel [phone], Service support ,
[2018-07-08 13:41] VITALS: BP 136/80; PULSE 66; RESP 17; O2SAT 95
--- NOTE | 2018-07-08 13:42 | ED.RN ---
IV DC'ED, CATHETER INTACT, SMALL GAUZE DRESSING PLACED. DISCHARGE INSTRUCTIONS GIVEN TO AND REVIEWED WITH PATIENT, PATIENT DENIES QUESTIONS OR CONCERNS AND VOICES UNDERSTANDING OF DISCHARGE INSTRUCTIONS. PT AMBULATES OUT OF ROOM WITHOUT DIFFICULTY.
== END 2018-07-08 13:42 | disposition home or self-care (01) ==
PROVIDERS: Emergency Provider Emergency Medicine; Family Provider Family Medicine; PCP Family Medicine
DX: M25.512 Pain in left shoulder (principal); R10.13 Epigastric pain; E04.9 Nontoxic goiter, unspecified; I10 Essential (primary) hypertension; E78.5 Hyperlipidemia, unspecified; Z79.899 Other long term (current) drug therapy; Z72.0 Tobacco use
CPT/HCPCS: 71045; 71275; 74175; 80053; 83690; 84484; 85025; 93005; 96374; 99285; Q9967; A4216; J2405

== ENCOUNTER 2018-07-30 07:42 | Day surgery (SDC) | payer BC, SELFPAY ==
[2018-07-17 08:30] VITALS: BMI 41.1
--- NOTE | 2018-07-30 | IMM_PTH ---
PATIENT: MAISHA DESAI LOC: EN U#:[id number] AGE/SX: 62/M ROOM: RE07/30/[address]: Dr. Catarino Herbert MD : 1955 BED: DIS: 07/30/2018 SPEC #: [id number] RECD: 07/31/18 12:49 STATUS: LEIGH REEleanor #: [id number] RADHA: 07/30/18 00:[address]: Catarino Herbert DEPT: IMMUNOHISTOCHEMISTRY RECD BY: Irma Singer ENTERED: 07/31/18 12:50 SP TYPE: IMMUNO OTHR DR: Dr. Saturnino Wilson MD Tissues: E - Transverse colon Procedures: P53 (add) KI-67 (initial) PHYSICIAN & INSTITUTION [place] [address] SPECIMEN INFORMATION: Tissue Source: E - Polyp distal transverse Clinical Info: GERD, colon polyps Specimen Number: [id number] CPT code: 46460, 84216 METHODOLOGY: Deparaffinized sections of prefer/formalin-fixed tissue or PAP/DQ stained slides are incubated with monoclonal/polyclonal antibodies/oligonucleotide probes. Localization is made via biotin free immunoperoxidase method. Appropriate controls are performed and reacted as expected. Results on target cell population are indicated in the following table: RESULTS: ANTIBODY / CLONE RESULT Block E Ki-67 (30-9) Positive in greater than 50% of serrated glandular nuclei. P53 (DO-7) Positive in areas of low-grade adenomatous change. These tests were developed and their performance characteristics determined by [facility]. They may not have been cleared or approved by the [place]. Food and Drug Administration. The FDA has determined that such clearance or approval is not necessary. INTERPRETATION: E. Polyp of distal transverse, biopsy: Serrated adenoma. CE:anjel 08/01/18
[2018-07-30 08:15] VITALS: BP 91/57; PULSE 73; RESP 16; TEMP 36.6; O2SAT 97; BMI 41.2
--- NOTE | 2018-07-30 09:00 | GASB_PTH ---
PATIENT: MAISHA DESAI LOC: EN U#:[id number] AGE/SX: 62/M ROOM: RE07/30/[address]: Dr. Catarino Herbert MD : 1955 BED: DIS: 07/30/2018 SPEC #: [id number] RECD: 07/30/18 12:06 STATUS: LEIGH MARI #: [id number] RADHA: 07/30/18 09:[address]: Catarino Herbert DEPT: SURGICAL PATHOLOGY RECD BY: Kenn Bhatt ENTERED: 07/30/18 13:29 SP TYPE: Gastric Bx OTHR DR: Dr. Saturnino Wilson MD Tissues: A - Gastric mucous membrane B - Esophageal mucous membrane C - Ascending colon D - Transverse colon E - Transverse colon F - Sigmoid colon biopsy G - Rectum, NOS Procedures: Surgery Specimen Level IV HEADER OPERATION: [place] [place] DIAGNOSIS: GERD with esophagitis; personal history colon polyps TISSUE SUBMITTED: A - Biopsy gastric antrum, B - Biopsy distal esophagus, C - Biopsy polyp proximal ascending, D - Biopsy polyp proximal transverse, E - Polyp distal transverse, F - Biopsy polyp sigmoid colon, G - Biopsy polyps rectum MICROSCOPIC DIAGNOSIS A. Biopsy, gastric antrum: Gastric antral mucosa with minimal chronic inflammation. B. Biopsy of distal esophagus: Esophagogastric junctional mucosa showing mild to moderate chronic inflammation, basilar squamous hyperplasia and reactive glandular changes. No glandular dysplasia found. PAS/Alcian blue stain with appropriate control is negative for intestinal-type goblet cell metaplasia. C. Biopsy, polyp proximal ascending: Submucosal lipoma. D. Biopsy, polyp proximal transverse: Tubular adenoma. E. Polyp of distal transverse: Serrated adenoma. See comment. F. Biopsy, polyp sigmoid colon: Diminutive hyperplastic polyp. G. Biopsy, polyps of rectum: Tubular adenoma (one). Hyperplastic polyp (one). CE:anjel 07/31/18 COMMENT E. No high-grade glandular dysplasia is microscopically identified. Immunohistochemical stain with appropriate control for p53 is positive in a few glandular epithelial nuclei in areas of low grade adenomatous change. Immunohistochemical stain with appropriate control for Ki67 is positive in greater than 50% of glandular nuclei in areas of serrated change. The serrated polyp fragments appear microscopically to be incompletely excised. Complete excision is of any residual polyp is recommended. Immunohistochemistry ([id number]) supports the above diagnosis. Case has been reviewed in consultation with Dr. Garcia who concurs with the above diagnosis. IDC:AM MICROSCOPIC DESCRIPTION Slides are reviewed. GROSS DESCRIPTION A - Received in fixative is one container labeled with the patient's name and designated biopsy gastric antrum. The specimen consists of two irregular fragments of light benitez soft tissue that in aggregate measure 0.6 x 0.4 x 0.2 cm. The specimen is totally submitted in one cassette. B - Received in fixative is one container labeled with the patient's name and designated biopsy distal esophagus. The specimen consists of multiple irregular fragments of light benitez soft tissue that in aggregate measure 1.5 x 0.5 x 0.3 cm. The specimen is totally submitted in one cassette. C - Received in fixative is one container labeled with the patient's name and designated biopsy polyp proximal ascending. The specimen consists of two larger fragments of light benitez soft tissue that in aggregate measure 0.5 x 0.4 x 0.2 cm and multiple other minute fragments measuring <0.1 x 0.1 x 0.1 cm. The specimen is totally submitted in one cassette. D - Received in fixative is one container labeled with the patient's name and designated biopsy polyp proximal transverse. The specimen consists of multiple irregular fragments of light benitez soft tissue that in aggregate measure 1 x 0.4 x 0.2 cm. The specimen is totally submitted in one cassette. E - Received in fixative is one container labeled with the patient's name and designated polyp distal transverse. The specimen consists of multiple irregular fragments of light benitez soft tissue that in aggregate measure 1.6 x 0.5 x 0.2 cm. The specimen is totally submitted in one cassette. F - Received in fixative is one container labeled with the patient's name and designated polyp sigmoid colon. The specimen consists of multiple irregular fragments of light benitez soft tissue that in aggregate measure 1 x 0.4 x 0.2 cm. The specimen is totally submitted in one cassette. G - Received in fixative is one container labeled with the patient's name and designated biopsy polyps rectum. The specimen consists of two irregular fragments of light benitez soft tissue that in aggregate measure 0.6 x 0.4 x 0.2 cm. The specimen is totally submitted in one cassette. / ALYCE:anjel 07/30/18 TC:1 CPT: 97059 x7, 37600
--- NOTE | 2018-07-30 10:09 | OP.ENDO_ITS ---
Patient Name: Chad Gan Procedure Date: 07/30/2018 9:08 AM Date of : 1955 Age: 62 Procedure: Upper GI endoscopy Indications: Epigastric abdominal pain Providers: Catarino Herbert MD Medicines: See the Anesthesia note for documentation of the administered medications Complications: No immediate complications. Procedure: Pre-Anesthesia Assessment: - Prior to the procedure, a History and Physical was performed, and patient medications and allergies were reviewed. The patient's tolerance of previous anesthesia was also reviewed. The risks and benefits of the procedure and the sedation options and risks were discussed with the patient. All questions were answered, and informed consent was obtained. Prior Anticoagulants: The patient has taken no previous anticoagulant or antiplatelet agents. ASA Grade Assessment: II - A patient with mild systemic disease. After reviewing the risks and benefits, the patient was deemed in satisfactory condition to undergo the procedure. After obtaining informed consent, the endoscope was passed under direct vision. Throughout the procedure, the patient's blood pressure, pulse, and oxygen saturations were monitored continuously. The gastroscope was introduced through the mouth, and advanced to the second part of duodenum. The upper GI endoscopy was accomplished without difficulty. The patient tolerated the procedure well. Scope In: 9:16:48 AM Scope Out: 9:25:36 AM Total Procedure Duration Time 0 hours 8 minutes 48 seconds Findings: Esophagitis with bleeding was found 42 cm from the incisors. Biopsies were taken with a cold forceps for histology. The Z-line was irregular and was found 42 cm from the incisors. A small hiatal hernia was present. Diffuse mildly erythematous mucosa without bleeding was found in the gastric antrum. Biopsies were taken with a cold forceps for histology. Diffuse mild mucosal variance characterized by atrophy and discoloration was found in the stomach. Biopsies were taken with a cold forceps for histology. The examined duodenum was normal. Impression: - Reflux esophagitis. Biopsied. - Z-line irregular, 42 cm from the incisors. Soft tissue mass like affect at EG junction as per photos. Aggressively biopsied - Small hiatal hernia. - Erythematous mucosa in the antrum. Biopsied. - Gastric mucosal variant. Biopsied. - Normal examined duodenum. Recommendation: - Discharge patient to home. - Resume previous diet. - Telephone my office for pathology results in 1 week. - Continue present medications. Procedure Code(s): --- Professional --- 21929, Esophagogastroduodenoscopy, flexible, transoral; with biopsy, single or multiple Diagnosis Code(s): --- Professional --- K21.0, Gastro-esophageal reflux disease with esophagitis K22.8, Other specified diseases of esophagus K44.9, Diaphragmatic hernia without obstruction or gangrene K31.89, Other diseases of stomach and duodenum R10.13, Epigastric pain CPT copyright 2017 [employer]. All rights reserved. The codes documented in this report are preliminary and upon pilling machine operator review may be revised to meet current compliance requirements. Catarino Herbert MD 07/30/2018 10:09:28 AM This report has been signed electronically. Number of Addenda: 0 Note Initiated On: 07/30/2018 9:08 AM
[2018-07-30 10:10] VITALS: BP 75/52; BP 91/57; PULSE 59; RESP 16; TEMP 36.2; O2SAT 92
[2018-07-30 10:15] VITALS: BP 91/57; BP 96/54; PULSE 58; RESP 16; O2SAT 92
--- NOTE | 2018-07-30 10:15 | OP.ENDO_ITS ---
Patient Name: Chad Gan Procedure Date: 07/30/2018 9:26 AM Date of : 1955 Age: 62 Procedure: Colonoscopy Indications: High risk colon cancer surveillance: Personal history of colonic polyps Providers: Catarino Herbert MD Medicines: See the Anesthesia note for documentation of the administered medications Patient Profile: Last Colonoscopy: March 2016. Complications: No immediate complications. Procedure: Pre-Anesthesia Assessment: - Prior to the procedure, a History and Physical was performed, and patient medications and allergies were reviewed. The patient's tolerance of previous anesthesia was also reviewed. The risks and benefits of the procedure and the sedation options and risks were discussed with the patient. All questions were answered, and informed consent was obtained. Prior Anticoagulants: The patient has taken no previous anticoagulant or antiplatelet agents. ASA Grade Assessment: II - A patient with mild systemic disease. After reviewing the risks and benefits, the patient was deemed in satisfactory condition to undergo the procedure. After I obtained informed consent, the scope was passed under direct vision. Throughout the procedure, the patient's blood pressure, pulse, and oxygen saturations were monitored continuously. The pediatric colonoscope was introduced through the anus and advanced to the cecum, identified by appendiceal orifice and ileocecal valve. The colonoscopy was performed without difficulty. The patient tolerated the procedure well. The quality of the bowel preparation was fair. The ileocecal valve was photographed. Scope In: 9:28:32 AM Scope Withdrawal Time 0 hours 24 minutes 31 seconds Scope Out: 9:59:09 AM Total Procedure Duration Time 0 hours 30 minutes 37 seconds Findings: Hemorrhoids were found on perianal exam. A 4 mm polyp was found in the proximal ascending colon. The polyp was sessile. The polyp was removed with a cold biopsy forceps. Resection and retrieval were complete. A 6 mm polyp was found in the proximal transverse colon. The polyp was sessile. The polyp was removed with a cold biopsy forceps. Resection and retrieval were complete. A 13 mm polyp was found in the distal transverse colon. The polyp was sessile. The polyp was removed with a cold snare. Resection and retrieval were complete. To prevent bleeding post-intervention, two hemostatic clips were successfully placed. There was no bleeding at the end of the procedure. A 7 mm polyp was found in the sigmoid colon. The polyp was sessile. The polyp was removed with a cold biopsy forceps. Resection and retrieval were complete. Two 4 mm polyp was found in the rectum. The polyp was sessile. The polyp was removed with a cold biopsy forceps. Resection and retrieval were complete. Multiple diverticula were found in the sigmoid colon and descending colon. Impression: - Preparation of the colon was fair. - Hemorrhoids found on perianal exam. - One 4 mm polyp in the proximal ascending colon, removed with a cold biopsy forceps. Resected and retrieved. - One 6 mm polyp in the proximal transverse colon, removed with a cold biopsy forceps. Resected and retrieved. - One 13 mm polyp in the distal transverse colon, removed with a cold snare. Resected and retrieved. Clips were placed. - One 7 mm polyp in the sigmoid colon, removed with a cold biopsy forceps. Resected and retrieved. - Two 4 mm polyp in the rectum, removed with a cold biopsy forceps. Resected and retrieved. - Diverticulosis in the sigmoid colon and in the descending colon. Recommendation: - Discharge patient to home. - Resume previous diet. - Continue present medications. - Repeat colonoscopy in 1 year for surveillance. - Telephone my office for pathology results in 1 week. Procedure Code(s): --- Professional --- 56261, Colonoscopy, flexible; with removal of tumor(s), polyp(s), or other lesion(s) by snare technique 73832, 59, Colonoscopy, flexible; with biopsy, single or multiple Diagnosis Code(s): --- Professional --- Z86.010, Personal history of colonic polyps K64.9, Unspecified hemorrhoids D12.2, Benign neoplasm of ascending colon D12.3, Benign neoplasm of transverse colon (hepatic flexure or splenic flexure) D12.5, Benign neoplasm of sigmoid colon K62.1, Rectal polyp K57.30, Diverticulosis of large intestine without perforation or abscess without bleeding CPT copyright 2017 [employer]. All rights reserved. The codes documented in this report are preliminary and upon unit manager review may be revised to meet current compliance requirements. Catarino Herbert MD 07/30/2018 10:15:01 AM This report has been signed electronically. Number of Addenda: 0 Note Initiated On: 07/30/2018 9:26 AM
[2018-07-30 10:20] VITALS: BP 83/58; BP 91/57; PULSE 59; RESP 16; O2SAT 93
[2018-07-30 10:25] VITALS: BP 91/52; BP 91/57; PULSE 63; RESP 16; TEMP 36.3; O2SAT 92
[2018-07-30 11:33] VITALS: BP 91/57
== END 2018-07-30 11:34 | disposition home or self-care (01) ==
LOC: EN 07:43 → AC 07:44
PROVIDERS: Family Provider Family Medicine; PCP Family Medicine; Referring Provider Surgery; Visit Provider Surgery
PROC: 0DJD8ZZ Inspection of Lower Intestinal Tract, Via Natural or Artificial Opening Endoscopic (ICD-10-PCS; CPT 45378; principal; 2018-07-30 08:55)
DX: K21.0 Gastro-esophageal reflux disease with esophagitis (principal); K22.8 Other specified diseases of esophagus; K29.50 Unspecified chronic gastritis without bleeding; K44.9 Diaphragmatic hernia without obstruction or gangrene; K31.89 Other diseases of stomach and duodenum; R10.13 Epigastric pain; Z86.010 Personal history of colon polyps; K64.9 Unspecified hemorrhoids; K57.30 Diverticulosis of large intestine without perforation or abscess without bleeding; D12.2 Benign neoplasm of ascending colon; D12.3 Benign neoplasm of transverse colon; D12.5 Benign neoplasm of sigmoid colon; D12.8 Benign neoplasm of rectum; Z80.0 Family history of malignant neoplasm of digestive organs; I10 Essential (primary) hypertension; E78.00 Pure hypercholesterolemia, unspecified; J44.9 Chronic obstructive pulmonary disease, unspecified; G47.33 Obstructive sleep apnea (adult) (pediatric); E66.01 Morbid (severe) obesity due to excess calories; Z68.41 Body mass index [BMI] 40.0-44.9, adult; F10.10 Alcohol abuse, uncomplicated; F17.210 Nicotine dependence, cigarettes, uncomplicated; Z79.899 Other long term (current) drug therapy
CPT/HCPCS: 43239; 45380; 45385; 88305; 88341; 88342; J7120

== ENCOUNTER → 2019-03-06 14:07 | Outpatient (CLI) | payer BC, SELFPAY ==
--- NOTE | 2019-03-06 14:11 | CT_ITS ---
STUDY: CT FACIAL BONES WITH CONTRAST REASON FOR EXAM: Male, 63 years old. Facial cellulitis. RADIATION DOSAGE (If Supplied By Facility): CTDIvol = ( 29.38 ) mGy, DLP = ( 664.99 ) mGycm TECHNIQUE: The patient was scanned in a multi detector CT scanner. Transaxial imaging was performed following the intravenous administration of 100CC IV Isovue 300. Sagittal and coronal images were reconstructed. Individualized dose optimization techniques were used for this CT. COMPARISON: None. FINDINGS: Minor calcific plaquing at the left carotid artery bifurcation. There are occasional nonspecific bilateral cervical lymph nodes. Normal orbital gonzalez and orbital contents. Normal nasal bones and anterior nasal spine. There are numerous absent bilateral molars. Normal facial bones. There is no demonstrated destructive lesion or fracture. There is mucoperiosteal thickening in the inferior aspect of the bilateral maxillary sinuses. Minor mucoperiosteal thickening in the inferior recesses of the bilateral frontal sinuses and in the anterior ethmoid air cells. There is also mucoperiosteal thickening in the anterior and medial margins of the right sphenoid sinus. Degenerative changes noted in the visualized upper cervical spine. CT/Sinus/Facial Bone IMPRESSION: 1. Chronic paranasal sinusitis. 2. Occasional nonspecific bilateral cervical lymph nodes. No defined mass or fluid collection in the facial soft tissues. 3. Numerous absent bilateral molars. 4. Multilevel degenerative changes of the upper cervical spine. Electronically Signed: Alex Lopez MD at 20:03 EDT , Service support ,
[2019-03-06 14:31] LABS: CREATININE FINGERSTICK 1.1 mg/dL (0.70-1.30)
== END ==
PROVIDERS: Family Provider Family Medicine; PCP Family Medicine; Referring Provider Family Medicine; Visit Provider Family Medicine
DX: L03.211 Cellulitis of face (principal)
CPT/HCPCS: 70486; Q9967

== ENCOUNTER → 2019-05-28 11:46 | Outpatient (CLI) | payer BC, SELFPAY ==
[2019-05-28 14:18] LABS: Absolute Lymphocyte Count 2.51 X10^3/uL (0.83-4.51); Absolute Neutrophil Count 7.1 X10^3/uL (2.0-7.7); Basophil# 0.07 X10^3/uL; Basophil% 0.7 % (0-1); Eosinophil# 0.14 X10^3/uL; Eosinophils% 1.3 % (0-5); Hematocrit 45.6 % (40-54); Hemoglobin 15.8 g/dL (13.0-16.5); Lymphocyte # 2.51 X10^3/ul (4.0); Lymphocyte % 23.8 % (19-41); Mean Corp Hgb Conc 34.6 g/dL (32-36); Mean Corpuscular Volume 98.1 fL (80-94); Mean Platelet Vol. 10.1 fl (6.2-12.0); Monocyte# 0.66 X10^3/uL; Monocyte% 6.3 % (0-10); NRBC Flagged by Analyzer 0 % (0-5); Neutrophil # 7.14 X10^3/uL (2.7-7.7); Neutrophil % 67.6 % (47-70); Platelet Count 222 K/mm3 (150-450); RBC Distribution Width CV 12.1 % (11.6-14.6); RBC Distribution Width SD 43.9 fl (35.1-43.9); Red Blood Count 4.65 M/mm3 (4.6-6.2); White Blood Count 10.6 K/mm3 (4.4-11.0)
[2019-05-28 14:40] LABS: ALB/GLOB Ratio 0.9 RATIO (0.9-2.4); AST(SGOT) 23 U/L (15-37); Alanine Aminotransfer ALT/SGPT 44 U/L (16-61); Albumin, Serum 3.5 g/dL (3.2-5.0); Alkaline Phosphatase 116 U/L (45-117); Anion Gap 7 (5-15); BUN 17 mg/dL (7-18); CRP 6.92 mg/L (0.0-3.0); Calcium,Total 8.7 mg/dL (8.5-10.1); Chloride 107 mmol/L (98-107); EST Glomerular Filtration Rate 80 mL/min (>60); Est Glom Filt Rate - Afr Amer 97 mL/min (>60); Globulin 3.7 g/dL (2.2-4.2); Glucose 88 mg/dL (74-106); Potassium 3.6 mmol/L (3.5-5.1); Protein, Total 7.2 g/dL (6.4-8.2); Sodium Level 139 mmol/L (136-145)
== END ==
PROVIDERS: Family Provider Family Medicine; PCP Family Medicine; Referring Provider Family Medicine; Visit Provider Family Medicine
DX: R10.11 Right upper quadrant pain (principal)
CPT/HCPCS: 36415; 80053; 84443; 85025; 86140

== ENCOUNTER → 2019-06-04 10:38 | Outpatient (CLI) | payer BC, SELFPAY ==
--- NOTE | 2019-06-04 10:41 | US_ITS ---
STUDY: ABDOMINAL ULTRASOUND - RIGHT UPPER QUADRANT REASON FOR VISIT: Male, 63 years old pain TECHNIQUE: Ultrasound evaluation of the right upper quadrant was performed with real-time and static chen-scale imaging. TECHNICAL QUALITY: Adequate. COMPARISON: 11/04/15. FINDINGS: Pancreas: Not well seen. Liver: Measures 19.9 cm. Liver shows increased echogenicity. No masses identified. Gallbladder: Surgically absent Common bile duct: Measures 3.5 mm. No intraductal stones identified. Right kidney: Measures 11.3 cm in length. Normal contour. No cysts. No masses, stones, or hydronephrosis identified. Renal cortical thickness appears normal. Additional findings: None. US/Abdomen Limited IMPRESSION: Mild hepatomegaly and diffuse steatosis. Cholecystectomy. Electronically Signed: Gustabo Paulino, at 12:36 EST Tel , Service support ,
== END ==
PROVIDERS: Family Provider Family Medicine; PCP Family Medicine; Referring Provider Family Medicine; Visit Provider Family Medicine
DX: R79.82 Elevated C-reactive protein (CRP) (principal)
CPT/HCPCS: 76705

== ENCOUNTER → 2019-06-24 07:20 | Outpatient (CLI) | payer BC, SELFPAY ==
[2019-06-18 14:42] VITALS: BMI 41.2
--- NOTE | 2019-06-24 07:20 | CT_ITS ---
STUDY: CT ABDOMEN AND PELVIS WITH CONTRAST REASON FOR EXAM: Male, 63 years old. RIGHT SIDED AB PAIN X 2 MONTHS. PRIOR APPY AND GB RADIATION DOSAGE (If Supplied By Facility): CTDIvol = ( 31.09 ) mGy, DLP = ( 1869.76 ) mGycm TECHNIQUE: Transaxial images were obtained from the dome of the diaphragm to the symphysis pubis without oral contrast. 100 ML ISOVUE 300 was administered. Sagittal and coronal images were reconstructed. Individualized dose optimization techniques were used for this CT. COMPARISON: 06/22/2018. FINDINGS: The visualized lung bases are unremarkable. The visualized portions of the heart are within normal limits. 6.2 mm probable cyst in segment 6 of liver also visualized on prior study. Prior cholecystectomy. Normal spleen. Normal pancreas. Normal bilateral adrenal glands. Bilateral likely benign renal cysts on both sides, with no evidence of hydronephrosis. Normal visualized stomach. Normal small intestine. There are multiple colonic diverticula consistent with diverticulosis. There are surgical clips in the region of the appendix consistent with a prior appendectomy. There is diffuse atherosclerotic calcification of the abdominal aorta, without a demonstrated aneurysm. Normal inferior vena cava. Normal retroperitoneum. Normal urinary bladder. There is enlargement of the prostate gland. There is a small umbilical hernia containing fat. There are diffuse degenerative changes of the visualized lumbar spine and bilateral SI joints.. CT/Abdomen/Pelvis WITH Contrast IMPRESSION: 6.2 mm probable hepatic cyst and bilateral likely benign renal cysts. Uncomplicated colonic diverticulosis. Prior cholecystectomy and appendectomy. No evidence of bowel obstruction or perienteric inflammation. Electronically Signed: Carrillo Freeman MD at 16:29 EST Tel [phone], Service support ,
== END ==
PROVIDERS: Family Provider Family Medicine; PCP Family Medicine; Referring Provider Surgery; Visit Provider Surgery
DX: R10.9 Unspecified abdominal pain (principal)
CPT/HCPCS: 74177; Q9967

== ENCOUNTER 2019-08-01 08:57 | Day surgery (SDC) | payer BC, SELFPAY ==
--- NOTE | 2019-06-18 03:02 | HP_ITS ---
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 Is patient in pain?: Yes (LLQ abdomen) Allergies No Known Allergies Allergy (Verified 06/18/19 14:40) Medications Nebivolol HCl [Bystolic (Beta Ag)] 10 mg PO DAILY 03/02/16 [History Confirmed 06/18/19] Pravastatin [Pravachol] 80 mg PO DAILY 03/02/16 [History Confirmed 06/18/19] famotidine 40 mg tablet 40 mg PO DAILY 07/17/18 [History Confirmed 06/18/19] coenzyme Q10 75 mg capsule 75 mg PO DAILY 06/18/19 [History Confirmed 06/18/19] hydrochlorothiazide 25 mg tablet 25 mg PO DAILY 06/18/19 [History Confirmed 06/18/19] irbesartan 300 mg tablet 300 mg PO DAILY 06/18/19 [History Confirmed 06/18/19] [facility] Medical History Personal history of colonic polyps (Acute) GERD with esophagitis (Acute) Alcohol intoxication (Acute) Fall (Acute) ETOH abuse (Chronic) Tobacco use (Chronic) HTN (hypertension) (Chronic) HLD (hyperlipidemia) (Chronic) Morbid obesity (Chronic) COPD (chronic obstructive pulmonary disease) (Suspected) JUSTEN (obstructive sleep apnea) (Chronic) Family History Father Colon cancer Grandmother Heart disease Social History (Updated 06/18/19 @ 15:02 by Catarino Herbert MD) Smoking Status: Light Smoker (<10/day) alcohol intake: current alcohol intake frequency: a few times a week HPI HPI HPI: MAISHA DESAI, is a 63 M who presents to the office today for HPI HPI Surgical H&P: Yes HPI: MAISHA DESAI, is a 63 M who presents to the office today for for surgical consultation regarding 2 separate issues today. The patient's primary care physician is Dr. Saturnino Wilson. The patient was doing in July 2019 to discuss rescheduling colonoscopy. I assisted him July 30, 2018 with a combined upper and lower endoscopy. The patient continues to have acid reflux his prescription medicine and he has been taking gmrz-muk-hnapdth medicine without adequate relief. The patient's body habitus is 300 pounds with a BMI of 41.2. His previous upper endoscopy gastric biopsies showed minimal chronic inflammation. Distal esophageal biopsies showed mild to moderate chronic inflammation. H. pylori was negative. There is a polyp in the proximal ascending colon which was a submucosal lipoma. Polyp in the proximal transverse colon which was a tubular adenoma. The distal transverse colon is serrated adenoma. Sigmoid polyp hyperplastic. Rectal polyp tubular adenoma was 1 of them and the second 1 was hyperplastic. The concerning feature was that the patient's bowel prep at that time was only fair precluding some visualization. Secondary issue today is the patient has had a several week history of a sharp knifelike pinching right mid abdominal pain. He himself cannot palpate a mass. He has had a previous cholecystectomy and and a previous appendectomy. On June 04, 2019 at the [facility] an abdominal ultrasound was obtained showing mild hepatomegaly and diffuse steatosis. The patient is still having discomfort. He can get relief by lying supine. Getting up out of bed and movement causes him discomfort. It is of note that laboratory was also obtained and it was unremarkable other than for a elevated CRP of 6.98 that was obtained on May 28, 2019. White blood cell count hemoglobin hematocrit were normal at that time. ROS General General: No weight change, appetite, fatigue, colon cancer, breast cancer or weakness HEENT HEENT: No difficulty swallowing, eye injury, eye surgery, swollen glands or hoarseness Endo Endocrine: No thyroid disease, diabetes mellitus, thyroid cancer, Hair loss, heat intolerance or cold intolerance Skin Skin: No rash or changing moles Breast Breast: No left breast lump, right breast lump, nipple discharge, breast pain, abnormal mammogram, abnormal US or breast enlargement Musc Musculoskeletal: Yes back problems, arthritis and rheumatoid arthritis; no gout or joint pain Cardio Cardiovascular: Yes high blood pressure; no murmur, pacemaker, heart disease, atrial fibrillation, heart attack, heart stent, palpitations, shortness of breat with exertion or chest pain Psych Psychiatric: No depression, anxiety or hearing voices Resp Respiratory: No shortness of breath, No sleep apnea, No cough, No COPD, No asthma, No emphysema, No wheezing Gastro Gastrointestinal: Yes abdominal pain, No nausea or vomiting, No diarrhea, No constipation, No blood in stool, Yes acid reflux, No hemorrhoids, No ulcers, Yes gallbladder problem, No black,tarry stools Maksim Hematologic: No blood thinners, No blood disorders, No bleeding, No anemia, No blood clots Neuro Neurologic: No system reviewed and no additional complaints, except as docu, No as per HPI, No abnormal walking, No abnormal hearing, No abnormal movements, No abnormal speech, No behavioral changes, No burning sensations, No confusion, No seizure-like activity, No unsteadiness, No dizziness, No localized weakness, No frequent falls, No headache(s), No lack of coordination, No loss of vision, No memory loss, No numbness, No other visual disturbances, No radiating pain, No restless legs, No sensory deficit, No fainting, No tingling, No tremor(s), No weakness, No other Exam Const General: cooperative, no acute distress Nutritional Appearance: obese morbidly obese Orientation: alert, awake [facility] Head: normal to inspection Chest Breast Palpation: No nipple discharge Other: Increased anterior posterior diameter Resp Effort & Inspection: normal respiratory effort Auscultation: clear to auscultation bilaterally Cardio Rate: regular rate Rhythm: regular rhythm Heart Sounds: no murmurs GI Other: Notably overweight abdomen, well-healed laparoscopic incisions, no focal mass particular in the right mid abdomen, mild tenderness no hernia appreciated. Normal bowel sounds. Skin General: no rashes or lesions noted Neuro Cognition: normal cognition Extrem General: no calf tenderness bilaterally Psych Affect: normal affect Assessment & Plan Problems 1. Personal history of colonic polyps Z86.010 2. Right upper quadrant abdominal pain R10.11 Plan 2 separate issues. History of multiple colon polyps with only a fair bowel prep. I recommend a colonoscopy with possible biopsy or polypectomy as indicated. We would be utilizing adult scope. We would be utilizing a escalated bowel prep because of his previous only fair prep. Monitored anesthesia care would be used because of his comorbidities. Right mid abdominal pain of undetermined etiology. Clinically I am not detecting a hernia. I recommend an abdominal pelvic CT scan with oral and IV contrast. If a finding correlates then I may be able to assist surgically. If not the patient is aware that he may not have a surgical resolution. The patient notes that he has been taking itqt-car-wqwlyjl medicine for his reflux and the medication is not working. We will re-prescribe our previous omeprazole 40 mg daily therapy. He has had an opportunity to ask and have questions answered. We will schedule and proceed at his discretion. I appreciate the ongoing opportunity of assisting with his surgical care. CC: Dr. Saturnino Herbert M.D., F.A.C.S. Orders Orders: Abdomen/Pelvis WITH Contrast Today R10.9 Coding Level of Care Code Off vis,est,level 4 Diagnoses Personal history of colonic polyps Z86.010 Right upper quadrant abdominal pain R10.11 ??Abdominal location: right upper quadrant 06/18/19 1502 <Electronically signed by Catarino blanco MD> Date _ Catarino Herbert MD I have re-examined the patient. There are no clinical changes since date of exam.
[2019-06-18 14:42] VITALS: BMI 41.2
[2019-08-01 09:12] VITALS: BP 104/73; PULSE 84; RESP 17; TEMP 36.4; O2SAT 98; BMI 42.2
[2019-08-01] MEDS: Lactated Ringers 1,000 ML 100 ML IV (09:21)
--- NOTE | 2019-08-01 10:15 | COLBX_PTH ---
PATIENT: MAISHA DESAI LOC: EN U#:[id number] AGE/SX: 63/M ROOM: RE08/01/[address]: Dr. Catarino Herbert MD : 1955 BED: DIS: 08/01/2019 SPEC #: [id number] RECD: 08/01/19 13:28 STATUS: LEIGH MARI #: [id number] RADHA: 08/01/19 10:[address]: Catarino Herbert DEPT: SURGICAL PATHOLOGY RECD BY: Dwayne Sheffield ENTERED: 08/01/19 13:41 SP TYPE: COLON BX OTHR DR: Dr. Saturnino Wilson MD Tissues: Transverse colon Procedures: Surgery Specimen Level IV HEADER OPERATION: Colonoscopy (MAC) PRE-OP DIAGNOSIS: History polyps, right upper quadrant pain TISSUE SUBMITTED: Biopsy of mid transverse polyp MICROSCOPIC DIAGNOSIS Mid transverse polyp, biopsy: Fragments of tubular adenoma. SJ:anjel 08/04/19 MICROSCOPIC DESCRIPTION Slides are reviewed. GROSS DESCRIPTION Received in fixative is one container labeled with the patient's name and designated biopsy of mid transverse polyp. The specimen consists of multiple irregular fragments of light benitez soft tissue that in aggregate measure 1 x 0.5 x 0.1 cm. The specimen is totally submitted in one cassette. / SJ:rg 08/01/19 TC:1 CPT: 61653
[2019-08-01 10:58] VITALS: BP 104/73; BP 96/59; PULSE 65; RESP 14; TEMP 36.1; O2SAT 92
--- NOTE | 2019-08-01 10:58 | OP.COLON_ITS ---
Patient Name: Chad Gan Procedure Date: 08/01/2019 10:33 AM Date of : 1955 Age: 63 Procedure: Colonoscopy Indications: High risk colon cancer surveillance: Personal history of colonic polyps Providers: Catarino Herbert MD Referring MD: Saturnino Wilson Medicines: See the Anesthesia note for documentation of the administered medications Patient Profile: Last Colonoscopy: July 2018. Complications: No immediate complications. Procedure: Pre-Anesthesia Assessment: - Prior to the procedure, a History and Physical was performed, and patient medications and allergies were reviewed. The patient's tolerance of previous anesthesia was also reviewed. The risks and benefits of the procedure and the sedation options and risks were discussed with the patient. All questions were answered, and informed consent was obtained. Prior Anticoagulants: The patient has taken no previous anticoagulant or antiplatelet agents. ASA Grade Assessment: III - A patient with severe systemic disease. After reviewing the risks and benefits, the patient was deemed in satisfactory condition to undergo the procedure. After I obtained informed consent, the scope was passed under direct vision. Throughout the procedure, the patient's blood pressure, pulse, and oxygen saturations were monitored continuously. The colonoscope was introduced through the anus and advanced to the cecum, identified by appendiceal orifice and ileocecal valve. The colonoscopy was performed with moderate difficulty due to the patient's body habitus. The patient tolerated the procedure well. The quality of the bowel preparation was good. The ileocecal valve and the appendiceal orifice were photographed. Scope In: 10:37:20 AM Scope Withdrawal Time 0 hours 10 minutes 56 seconds Scope Out: 10:52:44 AM Total Procedure Duration Time 0 hours 15 minutes 24 seconds Findings: Hemorrhoids were found on perianal exam. A 5 mm polyp was found in the mid transverse colon. The polyp was sessile. The polyp was removed with a cold biopsy forceps. Resection and retrieval were complete. Multiple diverticula were found in the sigmoid colon and descending colon. Impression: - Hemorrhoids found on perianal exam. - One 5 mm polyp in the mid transverse colon, removed with a cold biopsy forceps. Resected and retrieved. - Diverticulosis in the sigmoid colon and in the descending colon. Recommendation: - Discharge patient to home. - Resume previous diet. - Continue present medications. - Telephone my office for pathology results in 1 week. - Repeat colonoscopy in 5 years for surveillance based on pathology results. Procedure Code(s): --- Professional --- 71666, Colonoscopy, flexible; with biopsy, single or multiple Diagnosis Code(s): --- Professional --- Z86.010, Personal history of colonic polyps K64.9, Unspecified hemorrhoids D12.3, Benign neoplasm of transverse colon (hepatic flexure or splenic flexure) K57.30, Diverticulosis of large intestine without perforation or abscess without bleeding CPT copyright 2017 [employer] [place] [employer]. All rights reserved. The codes documented in this report are preliminary and upon cathode ray tube salvage processor review may be revised to meet current compliance requirements. Catarino Herbert MD 08/01/2019 10:57:43 AM This report has been signed electronically. Number of Addenda: 0 Note Initiated On: 08/01/2019 10:33 AM
--- NOTE | 2019-08-01 10:58 | OP.CCLET_ITS ---
08/01/2019 Saturnino Wilson [address] [facility] [address] [place] [address] Re : Colonoscopy procedure for Chad Gan Dear Dr. Wilson This procedure was performed on Thursday, August 01, 2019. My impressions and recommendations are as follows: Impressions : - Hemorrhoids found on perianal exam. - One 5 mm polyp in the mid transverse colon, removed with a cold biopsy forceps. Resected and retrieved. - Diverticulosis in the sigmoid colon and in the descending colon. Recommendations : - Discharge patient to home. - Resume previous diet. - Continue present medications. - Telephone my office for pathology results in 1 week. - Repeat colonoscopy in 5 years for surveillance based on pathology results. My findings are described in the full procedure note, which is enclosed. If I can be of further assistance, please feel free to contact me at Doctor phone number(s): Work: . Sincerely, Catarino Herbert MD 08/01/2019 10:57:43 AM This report has been signed electronically.
[2019-08-01 11:01] VITALS: BP 104/73; BP 84/56; PULSE 67; RESP 14; O2SAT 92
[2019-08-01 11:05] VITALS: BP 104/73; BP 89/64; PULSE 60; RESP 16; O2SAT 94
[2019-08-01 11:09] VITALS: BP 104/73; BP 87/60; PULSE 61; RESP 16; TEMP 36.1; O2SAT 92
[2019-08-01 11:37] VITALS: BP 104/73
--- NOTE | 2019-08-04 06:28 | HP.PCM_ITS ---
Problem List (1) Abdominal pain Status: Acute Qualifiers: Abdominal location: generalized Qualified Code(s): R10.84 - Generalized abdominal pain (2) Personal history of colonic polyps Status: Acute History and Physical Date of Admission: 08/01/19 Intake Visit Reasons: abd pain x3 weeks, needs a cscope in Jul Chief Complaint: Passed out per my Surgical Nurse Practitioner Required: No Is patient in pain?: Yes (LLQ abdomen) Allergies No Known Allergies Allergy (Verified 06/18/19 14:40) Medications Nebivolol HCl [Bystolic (Beta Ag)] 10 mg PO DAILY 03/02/16 [History Confirmed 06/18/19] Pravastatin [Pravachol] 80 mg PO DAILY 03/02/16 [History Confirmed 06/18/19] famotidine 40 mg tablet 40 mg PO DAILY 07/17/18 [History Confirmed 06/18/19] coenzyme Q10 75 mg capsule 75 mg PO DAILY 06/18/19 [History Confirmed 06/18/19] hydrochlorothiazide 25 mg tablet 25 mg PO DAILY 06/18/19 [History Confirmed 06/18/19] irbesartan 300 mg tablet 300 mg PO DAILY 06/18/19 [History Confirmed 06/18/19] [facility] Medical History Personal history of colonic polyps (Acute) GERD with esophagitis (Acute) Alcohol intoxication (Acute) Fall (Acute) ETOH abuse (Chronic) Tobacco use (Chronic) HTN (hypertension) (Chronic) HLD (hyperlipidemia) (Chronic) Morbid obesity (Chronic) COPD (chronic obstructive pulmonary disease) (Suspected) JUSTEN (obstructive sleep apnea) (Chronic) Family History Father Colon cancer Grandmother Heart disease Social History (Updated 06/18/19 @ 15:02 by Catarino Herbert MD) Smoking Status: Light Smoker (<10/day) alcohol intake: current alcohol intake frequency: a few times a week HPI HPI Surgical H&P: Yes HPI: MAISHA DESAI, is a 63 M who presents to the office today for for surgical consultation regarding 2 separate issues today. The patient's primary care physician is Dr. Saturnino Wilson. The patient was doing in July 2019 to discuss rescheduling colonoscopy. I assisted him July 30, 2018 with a combined upper and lower endoscopy. The patient continues to have acid reflux his prescription medicine and he has been taking xohi-toe-wkyzqsb medicine without adequate relief. The patient's body habitus is 300 pounds with a BMI of 41.2. His previous upper endoscopy gastric biopsies showed minimal chronic inflammation. Distal esophageal biopsies showed mild to moderate chronic inflammation. H. pylori was negative. There is a polyp in the proximal ascending colon which was a submucosal lipoma. Polyp in the proximal transverse colon which was a tubular adenoma. The distal transverse colon is serrated adenoma. Sigmoid polyp hyperplastic. Rectal polyp tubular adenoma was 1 of them and the second 1 was hyperplastic. The concerning feature was that the patient's bowel prep at that time was only fair precluding some visualization. Secondary issue today is the patient has had a several week history of a sharp knifelike pinching right mid abdominal pain. He himself cannot palpate a mass. He has had a previous cholecystectomy and and a previous appendectomy. On June 04, 2019 at the [facility] an abdominal ultrasound was obtained showing mild hepatomegaly and diffuse steatosis. The patient is still having discomfort. He can get relief by lying supine. Getting up out of bed and movement causes him discomfort. It is of note that laboratory was also obtained and it was unremarkable other than for a elevated CRP of 6.98 that was obtained on May 28, 2019. White blood cell count hemoglobin hematocrit were normal at that time. ROS General General: No weight change, appetite, fatigue, colon cancer, breast cancer or weakness HEENT HEENT: No difficulty swallowing, eye injury, eye surgery, swollen glands or hoarseness Endo Endocrine: No thyroid disease, diabetes mellitus, thyroid cancer, Hair loss, heat intolerance or cold intolerance Skin Skin: No rash or changing moles Breast Breast: No left breast lump, right breast lump, nipple discharge, breast pain, abnormal mammogram, abnormal US or breast enlargement Musc Musculoskeletal: Yes back problems, arthritis and rheumatoid arthritis; no gout or joint pain Cardio Cardiovascular: Yes high blood pressure; no murmur, pacemaker, heart disease, atrial fibrillation, heart attack, heart stent, palpitations, shortness of breat with exertion or chest pain Psych Psychiatric: No depression, anxiety or hearing voices Resp Respiratory: No shortness of breath, No sleep apnea, No cough, No COPD, No asthma, No emphysema, No wheezing Gastro Gastrointestinal: Yes abdominal pain, No nausea or vomiting, No diarrhea, No constipation, No blood in stool, Yes acid reflux, No hemorrhoids, No ulcers, Yes gallbladder problem, No black,tarry stools Maksim Hematologic: No blood thinners, No blood disorders, No bleeding, No anemia, No blood clots Neuro Neurologic: No system reviewed and no additional complaints, except as docu, No as per HPI, No abnormal walking, No abnormal hearing, No abnormal movements, No abnormal speech, No behavioral changes, No burning sensations, No confusion, No seizure-like activity, No unsteadiness, No dizziness, No localized weakness, No frequent falls, No headache(s), No lack of coordination, No loss of vision, No memory loss, No numbness, No other visual disturbances, No radiating pain, No restless legs, No sensory deficit, No fainting, No tingling, No tremor(s), No weakness, No other Exam Const General: cooperative, no acute distress Nutritional Appearance: obese morbidly obese Orientation: alert, awake HENOR Head: normal to inspection Chest Breast Palpation: No nipple discharge Other: Increased anterior posterior diameter Resp Effort & Inspection: normal respiratory effort Auscultation: clear to auscultation bilaterally Cardio Rate: regular rate Rhythm: regular rhythm Heart Sounds: no murmurs GI Other: Notably overweight abdomen, well-healed laparoscopic incisions, no focal mass particular in the right mid abdomen, mild tenderness no hernia appreciated. Normal bowel sounds. Skin General: no rashes or lesions noted Neuro Cognition: normal cognition Extrem General: no calf tenderness bilaterally Psych Affect: normal affect Assessment & Plan Problems 1. Personal history of colonic polyps Z86.010 2. Right upper quadrant abdominal pain R10.11 Plan 2 separate issues. History of multiple colon polyps with only a fair bowel prep. I recommend a colonoscopy with possible biopsy or polypectomy as indicated. We would be utilizing adult scope. We would be utilizing a escalated bowel prep because of his previous only fair prep. Monitored anesthesia care would be used because of his comorbidities. Right mid abdominal pain of undetermined etiology. Clinically I am not detecting a hernia. I recommend an abdominal pelvic CT scan with oral and IV contrast. If a finding correlates then I may be able to assist surgically. If not the patient is aware that he may not have a surgical resolution. The patient notes that he has been taking gnid-rax-yxssnks medicine for his reflux and the medication is not working. We will re-prescribe our previous omeprazole 40 mg daily therapy. He has had an opportunity to ask and have questions answered. We will schedule and proceed at his discretion. I appreciate the ongoing opportunity of assisting with his surgical care. CC: Dr. Saturnino Herbert M.D., F.A.C.S. Orders Orders: Abdomen/Pelvis WITH Contrast Today R10.9 Coding Level of Care Code Off vis,est,level 4 Diagnoses Personal history of colonic polyps Z86.010 Right upper quadrant abdominal pain R10.11 ??Abdominal location: right upper quadrant Because of the patient's personal history of colon polyps and abdominal pain we will proceed with colonoscopy with possible biopsy or polypectomy is indicated. His history and physical exam was reviewed on August 01, 2019 at the time of his presentation. We will proceed as indicated. Catarino Herbert M.D., F.A.C.S.
== END 2019-08-01 11:39 | disposition home or self-care (01) ==
LOC: EN 08:58 → AC 09:00
PROVIDERS: Family Provider Family Medicine; PCP Family Medicine; Referring Provider Family Medicine; Visit Provider Surgery
PROC: 0DJD8ZZ Inspection of Lower Intestinal Tract, Via Natural or Artificial Opening Endoscopic (ICD-10-PCS; CPT 45378; principal; 2019-08-01 10:10)
DX: Z12.11 Encounter for screening for malignant neoplasm of colon (principal); D12.3 Benign neoplasm of transverse colon; K64.9 Unspecified hemorrhoids; K57.30 Diverticulosis of large intestine without perforation or abscess without bleeding; R10.84 Generalized abdominal pain; I10 Essential (primary) hypertension; E78.00 Pure hypercholesterolemia, unspecified; K21.0 Gastro-esophageal reflux disease with esophagitis; E66.01 Morbid (severe) obesity due to excess calories; F17.200 Nicotine dependence, unspecified, uncomplicated; F10.10 Alcohol abuse, uncomplicated; Y90.9 Presence of alcohol in blood, level not specified; Z68.41 Body mass index [BMI] 40.0-44.9, adult; Z86.010 Personal history of colon polyps; Z90.49 Acquired absence of other specified parts of digestive tract
CPT/HCPCS: 45380; 88305; J7120; J2405

== ENCOUNTER → 2020-01-08 08:20 | Outpatient (CLI) | payer MEDICARE, SELFPAY ==
[2020-01-08 09:58] LABS: Absolute Lymphocyte Count 1.83 X10^3/uL (0.83-4.51); Absolute Neutrophil Count 8.9 X10^3/uL (2.0-7.7); Basophil# 0.07 X10^3/uL; Basophil% 0.6 % (0-1); Eosinophil# 0.14 X10^3/uL; Eosinophils% 1.2 % (0-5); Hematocrit 41.7 % (40-54); Hemoglobin 14.1 g/dL (13.0-16.5); Lymphocyte # 1.83 X10^3/ul (4.0); Lymphocyte % 15.5 % (19-41); Mean Corp Hgb Conc 33.8 g/dL (32-36); Mean Corpuscular Hgb 34.1 pg (27.0-32.0); Mean Corpuscular Volume 100.7 fL (80-94); Mean Platelet Vol. 10.3 fl (6.2-12.0); Monocyte# 0.81 X10^3/uL; Monocyte% 6.9 % (0-10); NRBC Flagged by Analyzer 0 % (0-5); Neutrophil % 75.4 % (47-70); Platelet Count 205 K/mm3 (150-450); RBC Distribution Width CV 12.7 % (11.6-14.6); RBC Distribution Width SD 47.1 fl (35.1-43.9); Red Blood Count 4.14 M/mm3 (4.6-6.2); White Blood Count 11.8 K/mm3 (4.4-11.0)
[2020-01-08 10:25] LABS: ALB/GLOB Ratio 0.9 RATIO (0.9-2.4); AST(SGOT) 18 U/L (15-37); Alanine Aminotransfer ALT/SGPT 30 U/L (16-61); Albumin, Serum 3.4 g/dL (3.2-5.0); Alkaline Phosphatase 119 U/L (45-117); Anion Gap 11 (5-15); BUN 19 mg/dL (7-18); BUN/Creat Ratio 18.1 RATIO (10-20); Calcium,Total 8.6 mg/dL (8.5-10.1); Chloride 104 mmol/L (98-107); Cholesterol 166 mg/dL (200); Creatinine, Serum 1.05 mg/dL (0.70-1.30); EST Glomerular Filtration Rate 75 mL/min (>60); Est Glom Filt Rate - Afr Amer 91 mL/min (>60); Globulin 3.8 g/dL (2.2-4.2); Glucose 116 mg/dL (74-106); High Density Lipoprotein 41 mg/dL; PSA,Total - Annual Screen 4.18 ng/mL (0.00-4.00); Potassium 3.4 mmol/L (3.5-5.1); Protein, Total 7.2 g/dL (6.4-8.2); Sodium Level 138 mmol/L (136-145); Triglycerides 87 mg/dL; Very Low Density Lipoprotein 17 mg/dL (5-40)
[2020-01-08 10:39] LABS: Microalbumin,Random Urine 32.4 mg/L (NO RANGE EST.); Microalbumin:Creatinine Ratio 7.1 mg/g CRE (<30 mg/g CRE)
[2020-01-08 10:51] LABS: Hepatitis C Antibody Non-Reactive (Nonreactive)
== END ==
PROVIDERS: PCP Family Medicine; Referring Provider Family Medicine; Visit Provider Family Medicine
DX: Z12.5 Encounter for screening for malignant neoplasm of prostate (principal); Z11.59 Encounter for screening for other viral diseases; I10 Essential (primary) hypertension
CPT/HCPCS: 36415; 80053; 80061; 82043; 82570; 84153; 85025; 86803; G0103

== ENCOUNTER → 2020-01-27 12:20 | Outpatient (CLI) | payer MEDICARE, BC, SELFPAY ==
--- NOTE | 2020-01-27 | LES_PTH ---
PATIENT: MAISHA DESAI LOC: [facility] U#:[id number] AGE/SX: 69/M ROOM: RE01/27/[address]: Dr. Saturnino Wilson MD : 1955 BED: DIS: SPEC #: [id number] RECD: 01/27/20 17:23 STATUS: LEIGH GUERRA #: [id number] RADHA: 01/27/20 00:[address]: Saturnino Wilson DEPT: SURGICAL PATHOLOGY RECD BY: Wayne John Tissues: Skin of forearm, NOS Procedures: Surgery Specimen Level IV HEADER OPERATION: Shave biopsy PRE-OP DIAGNOSIS: Bleeding growing mole, atypical nevus TISSUE SUBMITTED: Left mid forearm, skin MICROSCOPIC DIAGNOSIS Skin lesion of left mid forearm, biopsy: Verrucoid keratosis, inflamed. Solar elastosis. AM:anjel 01/29/20 MICROSCOPIC DESCRIPTION Slides are reviewed. GROSS DESCRIPTION Received in fixative is one container labeled with the patient's name and designated right mid forearm skin, biopsy. The specimen consists of an irregular fragment of light benitez excised skin measuring 0.6 x 0.5 x 0.2 cm. The specimen is inked, sectioned and totally submitted in one cassette. / AM:anjel 01/28/20 TC:5 CPT: 10429
== END ==
PROVIDERS: PCP Family Medicine; Referring Provider Family Medicine; Visit Provider Family Medicine
DX: L98.9 Disorder of the skin and subcutaneous tissue, unspecified (principal)
CPT/HCPCS: 88305

== ENCOUNTER 2020-04-28 10:50 | Outpatient (RCR) | payer MEDICARE, SELFPAY ==
--- NOTE | 2020-04-28 12:05 | HP.PTEVAL ---
Patient's Visit Information MAISHA DESAI is a 64 year old M referred to Physical Therapy by Dr. Saturnino Wilson MD with a diagnosis of OA KNEES AND LOW BACK ,SPINAL STENOSIS LOW BACK. Date of Evaluation: 04/28/20 Physical Therapist: John Churchill, PT, Cert MDT, OCS - Visit Plan Frequency: 2x /Week Duration: 4 Weeks Plan: PT INTERVENTIONS AQUATIC THERAPY FOR LUMBAR ROM/KNEE ROM,STRENGTHENING QUADS/HAMS/HIP,LUMBAR ROM AND DLS ,POSTURAL EX'S - Subjective This 64 y/o male presents to physical therapy with low back pain and knee pain. Patient has low back pain for many years as well knee pin for 4-[address] Wilson recommeded Aquatic Therapy. Patient as symmtical lumbar R> L and global knee pain. Patient has had [facility] couple of years ago for back and knees. Aggraveting factors walking and some standing bending/lifting. Alleviating factors sitting rest. Patient knee pain worse with standing,squatting and kneeling is difficulty.Stairs one step at time. Coughing/sneezing -. Bowel/bladder -. Patient has had no trauma. Patient has no eidural injections or pain injections. Patient condtion with low back and knees affects ADLS. and function/housework tasks.Patient symptoms QOL. SOCIAL: . VOCATION: - Pain Bilateral Back Pain Intensity (Out of 10): 5 Pain Intensity Range: 10 Bilateral Knee Pain Intensity (Out of 10): 5 Pain Intensity Range: 10 - Objective POSTURE: mild foward posture. GAIT: reciprocal pattern mild foward posture. PALAPTION: unremarkable. NEURO: denies parathesia/tingling,reflexes L3-4,L4-5,L5-S1 1/3. MMT: quads/hams 4/5 ,ankle 4/5 ,hip flexion 4-/5. LUMBAR ROM: flexion mod loss,extension mod loss,side glides mod loss. FLEXABLITY: hams MOD ,piriformis mod loss. SYMMTRIES: align. AROM: 20-120 degrees supine knee flexion - Special Tests L/S Slump test left side: Negative L/S Slump test right side: Negative L/S Left Straight Leg Raise: Negative L/S Right Straight Leg Raise: Negative Lumbar Standing: Flexion - Mechanical Response: No effect Lumbar Standing: Flexion - Symptoms During Testing: Increases Lumbar Standing: Flexion - Symptoms After Testing: No worse Lumbar Standing: Extension - Mechanical Response: No effect Lumbar Standing: Extension - Symptoms During Testing: Increases Lumbar Standing: Extension - Symptoms After Testing: No worse Lumbar Standing: Right Side Glides - Mechanical Response: No effect Lumbar Standing: Right Side [place] - Symptoms During Testing: No effect Lumbar Standing: Right Side [place] - Symptoms After Testing: No effect Lumbar Standing: Left Side [place] - Mechanical Response: No effect Lumbar Standing: Left Side [place] - Symptoms During Testing: No effect Lumbar Standing: Left Side [place] - Symptoms After Testing: No effect - Goals Goal 1:: Independant with Aquatic PT Goal Time Frame: 4-6 Weeks Goal 2:: Decrease LBP and knee pain by 50 % or > to improve function with walking and standing Goal Time Frame: 4-6 Weeks Goal 3:: Patient to increase lumbar ROM for function of recover and knee AROM 10-125 degrees to improve gait, Goal 4:: Patient to improve back owestry score by 5 points or > to improve QOL Goal Time Frame: 4-6 Weeks Goal 5:: Patient to increase strength of BLE 4+/5 to improve standing for ADL's Goal Time Frame: 4-6 Weeks - Rehabilitation Potential Physical Therapy Diagnosis: This patient has chronic LBP and knee pain with decrease ROM,strength quads/hams,poor lumbar ROM and knee ROM impairs walking and standing causes deficits with houwework and ADL's thus benifit from skilled PT Rehabilitation Potential: Good - Anticipated Interventions Patient/Client Instruction: Educate patient on: Condition, Plan of Care For the Purpose of:: To decrease pain, To decrease swelling/inflammation, To increase oxygenation perfusion, To increase tolerance to activity/condition/position, To improve ability of physical actions for home/community/work/leisure, To improve health of tissue, To decrease soft tissue restriction, To increase flexibility/ROM, To improve ability to perform tasks related to life management Therapeutic Exercise to Include: Strength training, Endurance training, Postural training, Flexibilty training, In an aquatic setting, Active ROM, Dynamic Lumbar Stabilization Comment: HIP/KNEE For the Purpose of:: To decrease pain, To increase ROM, To improve muscle performance and motor function, To improve ability to perform ADL's, To increase tolerance to activity/condition/position, To improve ability of physical actions for home/community/work/leisure, To improve health of tissue, To decrease soft tissue restriction, To increase flexibility/ROM, To improve endurance, To reduce risk of recurrence, To improve ability to perform tasks related to life management Thank you for the opportunity to evaluate your patient. For Medicare and Medicare HMO plans, please review the plan of care and approve it. It will need to be FAXED BACK to us at [phone] for Medicare purposes. For Medicare only, by signing this I certify the plan of care. Please let me know if there are questions or concerns regarding this plan of care. Physician Signature: Date:
--- NOTE | 2020-07-07 14:06 | HP.PT.NRP ---
MAISHA DESAI was seen in my office for initial evaluation on 04/28/20. The following Plan of Care was established for this patient: Initial Frequency: 2x /Week Initial Duration: 4 Weeks Patient/Client Instruction: Educate patient on: Condition, Plan of Care For the Purpose of:: To decrease pain, To decrease swelling/inflammation, To increase oxygenation perfusion, To increase tolerance to activity/condition/position, To improve ability of physical actions for home/community/work/leisure, To improve health of tissue, To decrease soft tissue restriction, To increase flexibility/ROM, To improve ability to perform tasks related to life management Therapeutic Exercise to Include: Strength training, Endurance training, Postural training, Flexibilty training, In an aquatic setting, Active ROM, Dynamic Lumbar Stabilization For the Purpose of:: To decrease pain, To increase ROM, To improve muscle performance and motor function, To improve ability to perform ADL's, To increase tolerance to activity/condition/position, To improve ability of physical actions for home/community/work/leisure, To improve health of tissue, To decrease soft tissue restriction, To increase flexibility/ROM, To improve endurance, To reduce risk of recurrence, To improve ability to perform tasks related to life management This patient was last seen in our office . Pertinent comments regarding their Physical therapy will appear below: Patient was seen for Intial. PT Evaluation with OA and back pain for Aquatic Therapy,but didnt return to PT. At this point I will be discontinuing this patient from physical therapy. I would be happy to see this patient again in the future if found appropriate by the physician. Thank you! John Churchill, PT, Cert MDT, OCS
== END 2020-04-28 19:00 | disposition home or self-care (01) ==
LOC: PT 10:50
PROVIDERS: PCP Family Medicine; Referring Provider Family Medicine; Visit Provider Family Medicine
DX: M17.0 Bilateral primary osteoarthritis of knee (principal); M54.5 Low back pain; M48.061 Spinal stenosis, lumbar region without neurogenic claudication
CPT/HCPCS: 97162

== ENCOUNTER 2020-09-09 17:05 | Outpatient (RCR) | payer MEDICARE, SELFPAY ==
[2020-09-09] MEDS: COVID-19 VACC, MRNA(PFIZER)/PF 30 MCG/0.3 ML SYRINGE IM (07:45)
[2020-09-30] MEDS: COVID-19 VACC, MRNA(PFIZER)/PF 30 MCG/0.3 ML SYRINGE IM (07:32)
== END 2020-12-07 23:59 ==
LOC: IMMUN 17:05
PROVIDERS: PCP Family Medicine; Visit Provider Family Medicine
DX: Z23 Encounter for immunization (principal)
CPT/HCPCS: 0001A; 0002A; 91300

== ENCOUNTER → 2021-01-27 08:43 | Outpatient (CLI) | payer MEDICARE, SELFPAY ==
[2021-01-27 10:17] LABS: Absolute Lymphocyte Count 1.96 X10^3/uL (0.83-4.51); Absolute Neutrophil Count 7.7 X10^3/uL (2.0-7.7); Basophil# 0.09 X10^3/uL; Basophil% 0.8 % (0-1); Eosinophil# 0.18 X10^3/uL; Eosinophils% 1.7 % (0-5); Hematocrit 46.2 % (40-54); Hemoglobin 16.2 g/dL (13.0-16.5); Lymphocyte # 1.96 X10^3/ul (0.83-4.51); Lymphocyte % 18.3 % (19-41); Mean Corp Hgb Conc 35.1 g/dL (32-36); Mean Corpuscular Volume 97.1 fL (80-94); Mean Platelet Vol. 10.5 fl (6.2-12.0); Monocyte# 0.71 X10^3/uL; Monocyte% 6.6 % (0-10); NRBC Flagged by Analyzer 0 % (0-5); Neutrophil # 7.69 X10^3/uL (2.7-7.7); Neutrophil % 71.9 % (47-70); Platelet Count 235 K/mm3 (150-450); RBC Distribution Width CV 12.6 % (11.6-14.6); RBC Distribution Width SD 44.8 fl (35.1-43.9); Red Blood Count 4.76 M/mm3 (4.6-6.2); White Blood Count 10.7 K/mm3 (4.4-11.0)
[2021-01-27 10:25] LABS: Erythrocyte Sedimentation Rate 21 mm/hr (0-20)
[2021-01-27 10:41] LABS: Vitamin D,25 Hydroxy 29.6 ng/mL
[2021-01-27 10:46] LABS: ALB/GLOB Ratio 0.8 RATIO (0.9-2.4); AST(SGOT) 22 U/L (15-37); Alanine Aminotransfer ALT/SGPT 40 U/L (16-61); Albumin, Serum 3.4 g/dL (3.2-5.0); Alkaline Phosphatase 130 U/L (45-117); Anion Gap 8 (5-15); BUN 12 mg/dL (7-18); BUN/Creat Ratio 11.5 RATIO (10-20); Calcium,Total 8.5 mg/dL (8.5-10.1); Chloride 104 mmol/L (98-107); Cholesterol 161 mg/dL (200); Creatinine, Serum 1.04 mg/dL (0.70-1.30); EST Glomerular Filtration Rate 76 mL/min (>60); Est Glom Filt Rate - Afr Amer 92 mL/min (>60); Glucose 124 mg/dL (74-106); High Density Lipoprotein 46 mg/dL; Protein, Total 7.4 g/dL (6.4-8.2); Rheumatoid Factor < 10.0 IU/mL (<15); Sodium Level 138 mmol/L (136-145); Thyroid Stim Hormone (TSH) 0.47 uIU/mL (0.358-3.74); Triglycerides 92 mg/dL; Very Low Density Lipoprotein 18 mg/dL (5-40)
[2021-01-27 10:56] LABS: Microalbumin,Random Urine 42.8 mg/L (NO RANGE EST.); Microalbumin:Creatinine Ratio 14.7 mg/g CRE (<30 mg/g CRE)
[2021-01-28 16:12] LABS: ANTINUCLEAR ANTIBODIES DIRECT Negative (Negative)
== END ==
PROVIDERS: PCP Family Medicine; Referring Provider Family Medicine; Visit Provider Family Medicine
DX: I10 Essential (primary) hypertension (principal); M17.10 Unilateral primary osteoarthritis, unspecified knee; E66.01 Morbid (severe) obesity due to excess calories; Z68.42 Body mass index [BMI] 45.0-49.9, adult
CPT/HCPCS: 36415; 80053; 80061; 82043; 82306; 82570; 84443; 85025; 85652; 86038; 86431

== ENCOUNTER 2021-04-04 10:30 | Outpatient (RCR) | payer MEDICARE, SELFPAY ==
--- NOTE | 2021-03-09 14:28 | HP.PTEVAL ---
Patient's Visit Information MAISHA DESAI is a 65 year old M referred to Physical Therapy by Dr. Sushil Murphy MD with a diagnosis of OA VICTORIANO KNEES. Date of Evaluation: 03/09/21 Physical Therapist: Hannah Ventura, PT, Cert MDT - Visit Plan Frequency: 2-3x /Week Duration: 4-6 Weeks Plan: AQUATIC THERPAY WAS ORDERED BY DR. MURPHY. PATIENT IS RELUCTANT BUT AGREEABLE. AQUATIC THERAPY FOR PAIN RELIEF, POSTURE CORRECTION/STRENGTHENING, INSTRUCTION IN APPROPRIATE BODY MECHANICS AND ACTIVITY MODIFICATIONS. DLS WITH A NEUTRAL SPINE ONLY TOLERATED. VICTORIANO LE ROM, STRETCHING AND STRENGTHENING. HEP INSTRUCTION. - Subjective Work/Leisure: RETIRED. Disability: NO. Present symptoms: VICTORIANO KNEE PAIN L>R. PATIENT DENIES VICTORIANO LE NUMBNESS AND TINGLING. Present since: YEARS. Pain Scale: WORST 4/10, LEAST 1-2/10. Currently: 07/11. 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 Worse: IN THE MORNINGS. Better: MVMT. Disturbed sleep: NO. Previous history/Previous treatment: LAST SUNDAY PATIENT DESCRIBES HAVING CORTISONE INJECTIONS IN EACH KNEE WITH BENEFIT. NO PT. Gait: KNEES ARE VERY STIFF IN THE MORNING TRYING TO WALK IN THE MORNINGS. KNEE PAIN AND BACK PAIN LIMIT WALKING BUT DOES PUSH MOW THE GRASS - TAKES BREAKS WHILE MOWING AND TAKES ABOUT AN HOUR OR TWO. Accidents: NO. Unexplained weight loss: NO. Imaging: RECENT VICTORIANO KNEE X-RAYS SHOWING ARTHRITIS PER PATIENT REPORT. KNEE REPLACEMENTS NOT RECOMMEDED YET. PMH/Recent major surgery: HTN. OTHER: PATIENT REPORTS HE IS NOT A COUCH POTATO. 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 HE REPORTS HE HAS DETERIORATING DISCS IN HIS BACK WHICH ARE A FACTOR IN HIS WALKING. 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 OTHER: PATIENT REPORTS HE IS RELUCTANT TO DO THERAPY BECAUSE HE DOES NOT THINK IT IS GOING TO HELP. - Objective Sitting/Standing Posture: POOR. DECREASED LORDOSIS. FH. RS'S. Active Correction of posture: NE. Other Observations: INDEP GAIT AND TRANSFERS BUT PATIENT WALKS ON VICTORIANO BENT KNEES. Motor deficit: VICTORIANO LE STRENGTH IS 5/5 IN AVAILABLE ROM WITH MMT'ING. Sensory deficit: VICTORIANO LE LIGHT TOUCH SENSATION GROSSLY INTACT AND SYMMETRICAL. ROM deficit: VERY TIGHT VICTORIANO HIP FLEXORS, HS'S AND GASTROC-SOLEUS COMPLEX'S. Dural Signs: POSITIVE RIGHT LE. KNEE AROM IN SUPINE WITH A HEEL SLIDE, R: -41 TO 114 DEG FLEX. L: -32 TO 111 DEG FLEX. Lumbar mvmt loss: flex - MOD. ext -IZAIAH. R SG - IZAIAH. L SG - IZAIAH. Core strength: FAIR. Palpation: MILD VICTORIANO KNEE SWELLING AND TENDERNESS MEDIALLY. - Balance/Special Test Scores Lower Extremity Functional Score: 48 - Goals Goal 1:: DECREASE C/O VICTORIANO KNEE PAIN Goal Time Frame: 4-6 Weeks Goal 2:: IMPROVE VICTORIANO KNEE FUNCTIONAL ROM TO EASE ADL'S Goal Time Frame: 4-6 Weeks Goal 3:: IMPROVE VICTORIANO KNEE FUNCTIONAL STRENGTH TO EASE ADL'S Goal Time Frame: 4-6 Weeks Goal 4:: PATIENT WILL BE INDEP WITH EX INSTRUCTION FOR CONTINUED IMPROVEMENT ONCE FORMAL PHYSICAL THERPAY CONCLUDES. Goal Time Frame: 4-6 Weeks - Anticipated Interventions Patient/Client Instruction: Educate patient on: Condition, Plan of Care, Risk Factors For the Purpose of:: To improve self management Therapeutic Exercise to Include: Strength training, Body mechanics, Postural training, Flexibilty training, Gait and locomotor training, Neuromotor development, In an aquatic setting, Dynamic Lumbar Stabilization Comment: NEUTRAL SPINE ONLY. PATIENT IS HERE FOR VICTORIANO KNEE OA BUT WOULD BENEFIT FROM CORE STRENGTHENING FOR HIS GAIT AND KNEES. For the Purpose of:: To decrease pain, To increase ROM, To improve muscle performance and motor function, To increase tolerance to activity/condition/position, To improve ability of physical actions for home/community/work/leisure, To improve gait and locomotor functions Thank you for the opportunity to evaluate your patient. For Medicare and Medicare HMO plans, please review the plan of care and approve it. It will need to be FAXED BACK to us at [phone] for Medicare purposes. For Medicare only, by signing this I certify the plan of care. Please let me know if there are questions or concerns regarding this plan of care. Physician Signature: Date:
--- NOTE | 2021-04-04 10:59 | HP.PTDCSUM_ITS ---
It has been my pleasure to treat MAISHA DESAI referred by Dr. Sushil Murphy MD, with the diagnosis of OA VICTORIANO KNEES for a total of 8 visit(s). Discharge Date: 04/04/21 Please see the following information for a summary of their discharge status. Subjective: PATIENT REPORTS HIS KNEES FEEL A LITTLE LOOSER AND STATES HE DID LEARN SOME NEW EX'S TO DO FOR HIS KNEES. PATIENT REPORTS HE WANT TO CONTINUE EXERCISING ON HIS OWN AT THIS TIME. WILL FOLLOW UP WITH HIS DOCTOR NEEDED. KNEES ARE STILL STIFF IN THE MORNINGS. EFFECTS OF THE SHOTS SEEM TO HAVE WORE OFF ALREADY PER PATINET REPORT. PATIENT REPORTS HE HAS GOOD DAYS AND BAD DAYS WITH HIS KNEE PAIN AND OVER-ALL HIS PAIN IS STAYING ABOUT THE SAME. bilat knees Pain Intensity (Out of 10): 2 % Improvement: 30 Objective/Function: PATIENT WAS SEEN TODAY FOR RE-ASSESSMENT OF PROGRESS TOWARD THE SET PT GOALS AND THE NEED FOR FURTHER PHYSICAL THERAPY VS READINESS FOR DISCHARGE. PATIENTS PAIN IS STAYING THE SAME. HIS FUNCTIONAL VICTORIANO KNEE ROM HAS IMRPOVED BUT HIS STRENGTH IS THE SAME AT EVAL AND NO SIGNIFICANT IMPROVEMENT IN LEFS SCORE. PATIENT IS INDEP WITH GYM EX PROGRAM AT [employer] AND WITH CONTINUE TO FOLLOW UP WITH ORTHO NEEDED. UPON EXAM TODAY: KNEE AROM IN SUPINE WITH A HEEL SLIDE, R: -26 TO 122 DEG FLEX. L: -24 TO 120 DEG FLEX. Goal 1:: DECREASE C/O VICTORIANO KNEE PAIN Goal Progress: Not Progressing Goal 2:: IMPROVE VICTORIANO KNEE FUNCTIONAL ROM TO EASE ADL'S Goal Progress: Goal Met Goal 3:: IMPROVE VICTORIANO KNEE FUNCTIONAL STRENGTH TO EASE ADL'S Goal Progress: Not Progressing Goal 4:: PATIENT WILL BE INDEP WITH EX INSTRUCTION FOR CONTINUED IMPROVEMENT ONCE FORMAL PHYSICAL THERPAY CONCLUDES. Goal Progress: Goal Met Plan: D/C TO INDEP EX If there are questions or concerns regarding this patient's physical therapy, please feel free to call me at [phone]. Thank you for the referral of this patient. Sincerely, Hannah Ventura, PT, Cert MDT Balance/Gait/Functional tests - Balance/Special Test Scores Lower Extremity Functional Score: 51
== END 2021-04-04 19:00 | disposition home or self-care (01) ==
LOC: PT 10:30
PROVIDERS: PCP Family Medicine; Referring Provider Specialist; Visit Provider Specialist
DX: M17.0 Bilateral primary osteoarthritis of knee (principal); E66.9 Obesity, unspecified; Z68.42 Body mass index [BMI] 45.0-49.9, adult
CPT/HCPCS: 97113; 97162; 97164

== ENCOUNTER → 2021-04-20 10:03 | Outpatient (CLI) | payer MEDICARE, SELFPAY ==
[2021-04-20 12:13] LABS: PSA,Total - Annual Screen 4.47 ng/mL (0.00-4.00)
== END ==
PROVIDERS: PCP Family Medicine; Referring Provider Family Medicine; Visit Provider Nurse Practitioner Family
DX: Z12.5 Encounter for screening for malignant neoplasm of prostate (principal)
CPT/HCPCS: 36415; 84153; G0103

== ENCOUNTER 2021-07-26 09:26 | Outpatient (CLI) | payer MEDICARE, SELFPAY ==
[2021-07-26 10:03] LABS: Hematocrit 45.5 % (40-54); Hemoglobin 15.2 g/dL (13.0-16.5); Mean Corp Hgb Conc 33.4 g/dL (32-36); Mean Corpuscular Hgb 32.8 pg (27.0-32.0); Mean Corpuscular Volume 98.1 fL (80-94); Mean Platelet Vol. 10.4 fl (6.2-12.0); Platelet Count 219 K/mm3 (150-450); RBC Distribution Width CV 12.4 % (11.6-14.6); RBC Distribution Width SD 45.1 fl (35.1-43.9); Red Blood Count 4.64 M/mm3 (4.6-6.2); White Blood Count 10.3 K/mm3 (4.4-11.0)
[2021-07-26 10:49] LABS: AST(SGOT) 18 U/L (15-37); Alanine Aminotransfer ALT/SGPT 37 U/L (16-61); Albumin, Serum 3.4 g/dL (3.2-5.0); Alkaline Phosphatase 155 U/L (45-117); Anion Gap 8 (5-15); BUN 24 mg/dL (7-18); BUN/Creat Ratio 23.1 RATIO (10-20); Calcium,Total 8.7 mg/dL (8.5-10.1); Chloride 108 mmol/L (98-107); Cholesterol 149 mg/dL (200); Creatinine, Serum 1.04 mg/dL (0.70-1.30); EST Glomerular Filtration Rate 76 mL/min (>60); Est Glom Filt Rate - Afr Amer 92 mL/min (>60); Globulin 3.4 g/dL (2.2-4.2); Glucose 98 mg/dL (74-106); High Density Lipoprotein 51 mg/dL; Potassium 3.9 mmol/L (3.5-5.1); Protein, Total 6.8 g/dL (6.4-8.2); Sodium Level 140 mmol/L (136-145); Thyroid Stim Hormone (TSH) 0.43 uIU/mL (0.358-3.74); Triglycerides 82 mg/dL; Very Low Density Lipoprotein 16 mg/dL (5-40)
[2021-07-26 14:26] LABS: Hemoglobin A1c 5.7 % (3.8-5.6)
[2021-07-26 15:26] LABS: Microalbumin,Random Urine 15.1 mg/L (NO RANGE EST.); Microalbumin:Creatinine Ratio 6.4 mg/g CRE (<30 mg/g CRE)
== END 2021-07-26 23:59 | disposition short-term general hospital (02) ==
LOC: MFPLAB 09:27
PROVIDERS: PCP Family Medicine; Referring Provider Family Medicine; Visit Provider Family Medicine
DX: I10 Essential (primary) hypertension (principal); G95.0 Syringomyelia and syringobulbia; E66.01 Morbid (severe) obesity due to excess calories; Z68.42 Body mass index [BMI] 45.0-49.9, adult; E78.00 Pure hypercholesterolemia, unspecified
CPT/HCPCS: 36415; 80053; 80061; 82043; 82570; 83036; 84443; 85027

== ENCOUNTER → 2021-11-04 | Outpatient (CLI) | payer MEDICARE, SELFPAY ==
--- NOTE | 2021-11-04 07:52 | CT_ITS ---
STUDY: CT LUMBAR SPINE WITH CONTRAST REASON FOR EXAM: Male, 66 years old. DORSALGIA RADIATION DOSAGE (If Supplied By Facility): CTDIvol = ( 44.28 ) mGy, DLP = ( 3520.91 ) mGycm TECHNIQUE: The patient was scanned in a multi detector CT scanner. High resolution transaxial imaging was performed following the intravenous administration of IV 100mL Isovue-300. Images were obtained from L1 to S1 vertebral level. Sagittal and coronal images were reconstructed. Individualized dose optimization techniques were used for this CT. COMPARISON: None FINDINGS: Normal lumbar lordosis. There is no substantial scoliosis. Multilevel spondylosis. L1-2: Moderate degree of disc space narrowing and anterior spondylosis. Mild degree of bilateral neural foraminal stenosis worse on the right side. L2-3: Moderate degree of disc space narrowing and spondylosis. Mild to moderate degree of central canal stenosis and bilateral neural foraminal stenosis worse on the right side. L3-4: Mild degree of disc space narrowing. Spondylosis. Moderate degree of lumbar central canal stenosis due to diffuse mild posterior disc bulge and hypertrophy of the ligamenta flava. Moderate degree of bilateral neural foraminal stenosis. L4-5: Marked degree of disc space narrowing and disc degeneration. Spondylolysis. Marked degree of central canal stenosis due to hypertrophy of the ligamenta flava as well as a central posterior spondylosis. Marked degree of facet joint osteoarthritis and hypertrophy with the moderate to marked degree of bilateral neural foraminal stenosis. L5-S1: Marked degree of disc space narrowing and disc degeneration. Facet joint osteoarthritis and hypertrophy. Moderate degree of bilateral neural foraminal stenosis worse on the left side. Atherosclerotic plaque formation of the abdominal aorta. CT/Spine Lumbar WITH Contrast IMPRESSION: Multilevel degenerative changes, as described above. Multilevel central canal and bilateral neural foraminal stenosis as described. Electronically Signed: Gianluca Vila MD at 10:18 EDT ,
[2021-11-04 08:06] LABS: CREATININE FINGERSTICK 0.8 mg/dL (0.70-1.30); EGFR FINGERSTICK > 60.0000 mL/min (>60)
--- NOTE | 2021-11-04 08:10 | CT_ITS ---
STUDY: CT THORACIC SPINE WITHOUT CONTRAST REASON FOR EXAM: Male, 66 years old. SPINAL STENOSIS. Chronic pain. RADIATION DOSAGE (If Supplied By Facility): CTDIvol = ( 44.28 ) mGy, DLP = ( 3520.91 ) mGycm TECHNIQUE: The patient was scanned in a multi detector CT scanner. High resolution imaging was performed. Images were obtained from T1 to T12. Sagittal and coronal images were reconstructed. Individualized dose optimization techniques were used for this CT. COMPARISON: None. FINDINGS: There is multilevel endplate spondylosis of the cervical spine. Normal kyphosis of the thoracic spine. There is no substantial scoliosis. There is multilevel endplate spondylosis of the thoracic spine. There is multilevel degenerative disc disease with loss of the disc space heights. Marked degree of disc space narrowing and disc degeneration with spondylosis and severe spinal stenosis at the T9-T10 level. Marked degree of spinal stenosis is also seen the T10-T11 and T11-T12 levels. The soft tissue structures are unremarkable. CT/Spine Thoracic WITH Contrast IMPRESSION: Marked degree of spinal stenosis at the at the T9-T10, T10-T11 and T11-T12 levels. Multilevel spondylosis and disc space narrowing. Electronically Signed: Gianluca Vila MD at 9:21 EDT ,
== END | disposition home or self-care (01) ==
LOC: CT 07:50
PROVIDERS: PCP Family Medicine; Referring Provider Family Medicine; Visit Provider Family Medicine
DX: M48.061 Spinal stenosis, lumbar region without neurogenic claudication (principal); G95.0 Syringomyelia and syringobulbia; M54.9 Dorsalgia, unspecified
CPT/HCPCS: 72129; 72132; Q9967

== ENCOUNTER → 2021-11-21 | Outpatient (CLI) | payer MEDICARE, SELFPAY ==
--- NOTE | 2021-11-21 07:53 | MRI_ITS ---
STUDY: MRI LUMBAR SPINE WITHOUT CONTRAST REASON FOR EXAM: Male, 66 years old. RIGHT SIDED BACK PAIN TECHNIQUE: Standardized fat and water weighted pulse sequences were obtained in the sagittal and axial planes. COMPARISON: X-ray 11/09/2021 FINDINGS: T12-L1: Normal endplates. Normal disc height, hydration and morphology. Normal bilateral facet joints. Normal central canal and bilateral lateral recesses. Normal bilateral intervertebral neural foramina. Normal lumbar lordosis. There is no substantial scoliosis. Normal conus medullaris that terminates at the L1/L2. L1-2: Mild bilateral facet hypertrophy and ligamentum plate hypertrophy. Mild bilobed disc protrusion produces mild spinal stenosis and mild bilateral neural foraminal stenosis. L2-3: Mild bilateral facet hypertrophy and moderate ligament flavum hypertrophy. Large broad disc protrusion produces severe spinal stenosis with moderate bilateral lateral recess stenosis with abutment of the L3 nerve roots bilaterally and mild bilateral neural foraminal stenosis. L3-4: Mild bilateral facet hypertrophy and ligament flavum hypertrophy. Moderate broad disc protrusion is moderate spinal stenosis with moderate lateral recess stenosis with abutment of the L4 nerve roots bilaterally and mild bilateral neural foraminal stenosis. L4-5: Moderate bilateral facet hypertrophy and ligament flavum hypertrophy. 2 mm retrolisthesis of L4 on L5 with a moderate broad disc protrusion produces severe spinal stenosis with severe bilateral lateral recess stenosis with effacement of the L5 nerve roots bilaterally and moderate bilateral neural foraminal stenosis with abutment of the L4 nerve roots bilaterally. L5-S1: Moderate bilateral facet hypertrophy and ligament flavum hypertrophy. 2 mm retrolisthesis of L5 on S1 with a mild broad disc protrusion produces moderate spinal stenosis and moderate bilateral neural foraminal stenosis with abutment of the exiting L5 nerve roots bilaterally. Normal visualized sacral ala. Moderate friction related edema in the posterior subcutaneous fat. MRI/Spine Lumbar (Routine) IMPRESSION: Multilevel degenerative changes, as described above. Electronically Signed: Kenn Sanchez MD at 9:36 EDT ,
== END | disposition home or self-care (01) ==
PROVIDERS: PCP Family Medicine; Referring Provider Orthopaedic Surgery; Visit Provider Orthopaedic Surgery
DX: M48.061 Spinal stenosis, lumbar region without neurogenic claudication (principal)
CPT/HCPCS: 72148

== ENCOUNTER → 2022-04-19 | Outpatient (CLI) | payer MEDICARE, SELFPAY ==
[2022-04-19 10:05] LABS: Absolute Lymphocyte Count 2.29 X10^3/uL (0.83-4.51); Basophil# 0.08 X10^3/uL; Basophil% 0.9 % (0-1); Eosinophil# 0.21 X10^3/uL; Eosinophils% 2.2 % (0-5); Hematocrit 46.3 % (40-54); Hemoglobin 15.8 g/dL (13.0-16.5); Lymphocyte # 2.29 X10^3/ul (0.83-4.51); Lymphocyte % 24.4 % (19-41); Mean Corp Hgb Conc 34.1 g/dL (32-36); Mean Corpuscular Hgb 34.8 pg (27.0-32.0); Mean Platelet Vol. 10.3 fl (6.2-12.0); Monocyte# 0.77 X10^3/uL; Monocyte% 8.2 % (0-10); NRBC Flagged by Analyzer 0 % (0-5); Neutrophil % 63.9 % (47-70); Platelet Count 186 K/mm3 (150-450); RBC Distribution Width CV 13.2 % (11.6-14.6); RBC Distribution Width SD 49.9 fl (35.1-43.9); Red Blood Count 4.54 M/mm3 (4.6-6.2); White Blood Count 9.4 K/mm3 (4.4-11.0)
[2022-04-19 10:37] LABS: International Normalized Ratio 1.1; Prothrombin Time (Protime)PT. 13.5 SECONDS (11.7-14.9)
[2022-04-19 10:38] LABS: Partial Thromboplast Time 29.3 Seconds (24.1-36.2)
[2022-04-19 11:00] LABS: ALB/GLOB Ratio 0.9 RATIO (0.9-2.4); AST(SGOT) 18 U/L (15-37); Alanine Aminotransfer ALT/SGPT 29 U/L (16-61); Albumin, Serum 3.2 g/dL (3.2-5.0); Alkaline Phosphatase 142 U/L (45-117); Anion Gap 4 (5-15); BUN 15 mg/dL (7-18); BUN/Creat Ratio 15.8 RATIO (10-20); Calcium,Total 8.5 mg/dL (8.5-10.1); Chloride 112 mmol/L (98-107); Creatinine, Serum 0.95 mg/dL (0.70-1.30); EST Glomerular Filtration Rate 84 mL/min (>60); Est Glom Filt Rate - Afr Amer 101 mL/min (>60); Globulin 3.6 g/dL (2.2-4.2); Glucose 114 mg/dL (74-106); Potassium 4.2 mmol/L (3.5-5.1); Protein, Total 6.8 g/dL (6.4-8.2); Sodium Level 142 mmol/L (136-145)
== END | disposition home or self-care (01) ==
LOC: MFPLAB 08:13
PROVIDERS: PCP Family Medicine; Referring Provider Family Medicine; Visit Provider Family Medicine
DX: I10 Essential (primary) hypertension (principal); M54.9 Dorsalgia, unspecified; G89.29 Other chronic pain
CPT/HCPCS: 36415; 80053; 85025; 85610; 85730

== ENCOUNTER 2022-05-09 11:37 | Observation (INO) | payer MEDICARE, SELFPAY ==
--- NOTE | 2022-04-27 08:20 | EKG12_ITS ---
Test Reason : PRE OP Blood Pressure : / mmHG Vent. Rate : 056 BPM Atrial Rate : 056 BPM P-R Int : 182 ms QRS Dur : 090 ms QT Int : 422 ms P-R-T Axes : 059 055 042 degrees QTc Int : 407 ms Sinus bradycardia Otherwise normal ECG Confirmed by DELON BROWN, SATYA ([id number]), video effects editor RICHARD ZEPEDA ([id number]) on 04/28/2022 2:19:23 P M Referred By: Lamont Keith Confirmed By:MARSHALL JERNIGAN MD
[2022-04-27 11:25] LABS: Magnesium 1.9 mg/dL (1.6-2.6)
[2022-04-27 12:02] LABS: HIV - WCH Non-Reactive (Nonreactive); Hepatitis B Surface Antibody Non-Reactive; Hepatitis C Antibody Non-Reactive (Nonreactive)
[2022-04-28 15:11] LABS: Hepatitis A AB, Total Negative (Negative)
--- NOTE | 2022-05-08 13:42 | HP.PCM_ITS ---
History and Physical MR#: [id number] Acct: [id number] Name:? MAISHA DESAI Rep #: [id number] : 1955 ? ? Provider: Dr. Lamont Keith, DO Age/Sex:? 66/M ? ? Location: [facility] – [place] Status: Signed Intake Vital Signs ? 11/09/2208:42 Height 5 ft 11 in Weight: 325 lb BMI 45.3 Intake Visit Reasons:?Lumbar spine Is patient in pain?: Yes Pain scale (1-10): 5 Allergies No Known Allergies Allergy (Verified 11/09/21 09:44) Medications pravastatin 80 mg PO DAILY 03/02/16 [History Confirmed 11/09/21] coenzyme Q10 75 mg capsule 75 mg PO DAILY 06/18/19 [History Confirmed 11/09/21] hydrochlorothiazide 25 mg tablet 25 mg PO DAILY 06/18/19 [History Confirmed 11/09/21] irbesartan 300 mg tablet 300 mg PO DAILY 06/18/19 [History Confirmed 11/09/21] atenolol 25 mg tablet 25 mg PO? tab 11/09/21 [History Confirmed 11/09/21] baclofen 20 mg tablet 20 mg PO? tab 11/09/21 [History Confirmed 11/09/21] tramadol 50 mg tablet 50 mg PO DAILY 11/09/21 [History Confirmed 11/09/21] PFSH Medical History Abdominal pain Alcohol intoxication COPD (chronic obstructive pulmonary disease) ETOH abuse Fall GERD with esophagitis HLD (hyperlipidemia) HTN (hypertension) Morbid obesity JUSTEN (obstructive sleep apnea) Personal history of colonic polyps Tobacco use Surgical History?(Updated 08/04/19 @ 06:[address] Catarino Herbert MD) History of esophagogastroduodenoscopy (EGD) S/P appendectomy S/P colonoscopy S/P laparoscopic cholecystectomy Family History? Father Colon cancerGrandmother Heart disease Social History?(Updated 06/18/19 @ 15:[address] Catarino Herbert MD) Smoking Status:? Light Smoker (<10/day) alcohol intake:? current alcohol intake frequency: a few times a week HPI Lumbar spine Details: Parts of this documentation were recorded by a scribe, this documentation accurately reflects the service provided and the decisions made by me, Dr. Lamont Keith, DO MAISAH DESAI is a 66 year old M here today for low back pain. Patient states that he has low back pain for a many years with it worsening recently. He denies any known injury. Patient notes that his pain is over his left low back. Patient denies any radiating pain. He notes at night sometimes he has a sharp pain into his posterior hip. Patient is unable to sleep at night due to pain. Patient has increased pain with ambulating skilled nursing. He states that he has been working out about 3 times a week which is helpful. Patient denies any injections or physical therapy. Patient has a muscle relaxer and tramadol for pain. Malik is a most pleasant gentleman 66 years old has chief complaint of low back pain.? He has had it for years and years.? He is worked hard with his back all his life.? He denies any bowel or bladder dysfunction.? He denies history of unexplained weight loss night fever sweats or chills.? He denies any weakness in his lower extremities.? He cannot walk too far because it bothers him.? However he does not really have any leg pain per se is all low back pain and not even in the middle of his low back most of it currently is off to the right side of his low back and sometimes it is to his left side.? Activity does not necessarily make it any worse.? In fact when he is sedentary the pain may actually be worse.? It wakes him up at night. On examination he has good motor strength of all major muscle groups of both lower extremities.? He has 1+ patellar reflexes bilaterally and 1+ Achilles reflexes bilaterally.? He has no long tract signs.? Clonus is absent Babinski's are downgoing.? He has no muscle atrophy.? He can stand on his toes and he can stand on his heels with some degree of difficulty. Reviewed plain x-rays of his lumbar spine that demonstrates that he has degeneration at every single level with massive spurs degenerated disks etc.? I did review the CT scan that he had done not too long ago.? It demonstrates that he has at least a couple of levels of significant spinal stenosis. We are ordering an MRI scan of the lumbar spine.? I will see him after the MRI scan and make further recommendations. Coding Level of Care Code Off vis,new,level 3 Diagnoses
[2022-05-09] VITALS (14 sets, daily range): BP systolic 145–186; BP diastolic 48–102; PULSE 50–71; RESP 16–24; TEMP 35.6–37.2; O2SAT 92–97; BMI 45.1; BMI 45.2
[2022-05-09] MEDS: Acetaminophen 500 MG Tablet 1000 MG PO ×2 (06:17→23:02)
[2022-05-09] MEDS: Magnesium 2 GM for ERAS IV (06:51)
[2022-05-09] MEDS: Lactated Ringers 1,000 ML 15 ML IV ×2 (06:53→09:15)
[2022-05-09 07:36] LABS: Bedside Glucose 111 mg/dL (74-106)
--- NOTE | 2022-05-09 08:55 | RAD_ITS ---
STUDY: X-RAY - LUMBAR SPINE REASON FOR EXAM: Male, 66 years old. LAMINECTOMY, DECOMPRESSION L4-5 TECHNIQUE: 1 view(s) of the lumbar spine were obtained. COMPARISON: None FINDINGS: The localization instrument is seen posterior to the L5-S1 disc space level. RAD/Spine 1 View Any Level IMPRESSION: The localization instrument is seen posterior to the L5-S1 disc space level. Electronically Signed: Gianluca Vila MD at 10:19 EST ,
--- NOTE | 2022-05-09 09:12 | RAD_ITS ---
STUDY: X-RAY - LUMBAR SPINE REASON FOR EXAM: Male, 66 years old. Image #2 TECHNIQUE: 1 view(s) of the lumbar spine were obtained. COMPARISON: None FINDINGS: The localization instrument is seen posterior to the L4-L5 disc space level. RAD/Spine 1 View Any Level IMPRESSION: The localization instrument is seen posterior to the L4-L5 disc space level. Electronically Signed: Gianluca Vila MD at 10:18 EST ,
[2022-05-09] MEDS: THROMBIN (RECOMBINANT) 20,000 UNIT VIAL 20000 UNIT TOPICAL (09:36)
--- NOTE | 2022-05-09 11:23 | SUR.PHASEI ---
ON PACU ARRIVAL, VERY RESTLESS, AGITATED, DISORIENTED, KEEPS ATTEMPTING TO CLIMB OOB, INSISTS HE MUST URINATE, DENIES THAT HE HAD SURGERY YET. DUNNE X 4 STRONGLY, SENSATION INTACT, DENIES ANY N/T, PULSES PALPABLE 1+. GENERALIZED EDEMA NOTED. WAS REPORTEDLY PRONE MOST OF O.R. CASE. ATTEMPTING TO REORIENT. WILL MAINTAIN PATIENT SAFETY.
--- NOTE | 2022-05-09 11:47 | OP.PCM_ITS ---
Report of Operation Description of Surgical Findings:: Preoperative diagnosis: Spinal stenosis L4-5 Postoperative diagnosis: The same Procedure: Lumbar laminectomy decompression L4-5 CPT code 86325 Surgeon: Dr. Keith physician assistant psychiatry: Starr FOSTER Anesthesia: General endotracheal by [facility] EBL: Less than 75 cc Drains: Medium Hemovac Complications: None Procedure: Patient was taken to the OR where he was placed under general endotracheal anesthesia while still on his gurney. Neuro monitoring placed their leads on the patient. A Aragon catheter was inserted. He was then rolled over onto the prone position on the Aiden frame. Note that this patient weighs 325 pounds and has a very large abdomen so we had to put the Aiden frame but its widest and at its highest. We took great care to position him properly. We protected the ulnar nerves of both elbows the brachial plexus bilaterally the genitalia and his lower extremities. Once the patient was properly positioned the back was then prepped and draped in standard fashion. I then made a longitudinal incision centered over L4-5. Subcutaneous tissues were incised length of the skin incision. Over the lumbar fascia first to the left of the spinous processes elevating the paravertebral soft the lamina. We then put a marker in place we did not were not sure what the level we were at but the x-ray prove that we were indeed at the L5-S1 level thus we simply moved up 1 level. I did have to extend the incision slightly northward. This was then marked at 4 5 I then elevated the remaining paravertebral soft lamina for the top of the lamina 5. This was done exactly the same way on the opposite side elevated the paravertebral muscles off the lamina of 4 on the right side and the top of the lamina of 5 also on the right side. The super slide self-retaining retractors were then put in place. We had to use 3 inch blades. Then removed of the excessive soft tissue here and there and I provided cautery for the bleeding and also dura throughout the case every 10 to 50 minutes we thoroughly irrigated with copious amounts of sterile saline. Using double-action rongeurs were then removed the spinous process of L4 and the very top of the spinous process of L5. I used double-action rongeurs to thin the lamina down on both sides. Note that it was quite thickened I then used a curette to release ligamentum flavum off the underside of the lamina of L4 and the laminectomy was started to be carried out with a 5 degree Kerrison rongeurs I open both sides. I then remove the ligamentum flavum by splitting it first in the middle and began removal of the ligamentum flavum first on the left side and some on the right side. Note that we used cottonoids frequently to protect the dura as best we could. This was a tedious process of course and but we were able to open the lateral recesses first on the right side from the left that I was working on. Basically removed almost all the ligamentum flavum as I did so we can see the dura expand. I then moved to the opposite side of the table and did the same thing on the left side from the opposite side I was able to remove all the ligamentum flavum and perform medial facetectomies. This completely decompressed the cauda equina. I checked the foramen they were open on both sides. Note that again thorough irrigation was carried out frequently I also used bone wax on bleeding bone. Finally a amniotic membrane was placed over the laminectomy site. This is to prevent adhesions. Gelfoam was placed over the top of that. Then put Hemovac drain in place it was medium size. I then closed the lumbar fascia using [id number] suture with #1 Vicryl for closure of the subcutaneous tissues in layers with both 0 Vicryl and 2-0 Vicryl in interrupted fashion. Symptoms were used on the skin. Please note that about three fourths through the case monitoring saw some abnormalities in both lower extremities undoubtedly due to circulation problem because he is such a large man. We heard his best we could to finish the case. He also had little problem with the left arm again because he was such a large man even though he was properly positioned throughout his time in the prone position. Sterile dressings were then applied we then turned the patient over onto his hospital bed I note that once on the hospital bed he had warm feet and his lower extremities were pink and warm. This is the end of operative summary on Chad Gan. This is Dr. Keith dictating.
[2022-05-09] MEDS: Lactated Ringers 1,000 ML 100 ML IV ×2 (13:58→20:29)
--- NOTE | 2022-05-09 15:38 | PN.HOSP_ITS ---
Subjective Subjective Consult requested by Dr. Keith for post-op medical mgmt. Pt complains of back pain post op Objective Data Objective Data Vital Signs: Vital Signs Temp Pulse Resp BP Pulse Ox O2 Del Method O2 Flow Rate 36.8 C 57 L 18 186/97 H 96 Nasal Cannula 4 05/09/22 13:33 05/09/22 13:33 05/09/22 13:33 05/09/22 13:33 05/09/22 13:33 05/09/22 13:33 05/09/22 13:33 Oxygen Flow Rate (L/min) 4 Oxygen Delivery Method Nasal Cannula Weight: 147 kg Body Mass Index (BMI) 45.1 Intake & Output: Intake and Output for Last 24 Hours 05/07/22 05/08/22 05/09/22 23:59 23:59 23:59 Intake Total 1219 / 1219 Output Total 1045 / 1045 Balance 174 / 174 Lab / Micro Data Labs: Laboratory Results - last 24 hr 05/09/22 06:21: POC Glucose 111 H Micro: Microbiology 04/27/22 08:35 Swab (Method) Nasal Screen MRSA/MSSA - Final Radiography Diagnostic Testing: Radiology Impression Spine X-Ray 05/09/22 08:55 IMPRESSION: The localization instrument is seen posterior to the L5-S1 disc space level. Electronically Signed: Gianluca Vila MD at 10:19 EST , Spine X-Ray 05/09/22 09:12 IMPRESSION: The localization instrument is seen posterior to the L4-L5 disc space level. Electronically Signed: Gianluca Vila MD at 10:18 EST , Physical Exam Const Constitutional Narrative: groggy. NAD. dozes off easily. Resp Resp Narrative: diminished but clear. Cardio regular rate, regular rhythm, S1 normal heart sound and S2 normal heart sound GI normal to inspection, nondistended, normoactive bowel sounds, soft to palpation, non-tender and non-distended Extremity Extremity Narrative: +1 LE edema. Assessment & Plan Assessment/Plan (1) HTN (hypertension): QUALIFIERS: Hypertension type: essential hypertension Qualified Code(s): I10 - Essential (primary) hypertension PLAN: Likely exacerbated by pain and surgery. Continue atenolol, HCTZ, losartan. Will add PRN clonidine for severely elevated BPs. Likely will not need to continue upon discharge. PLAN: Plan s/p Lumbar decompression. mgmt per spine chronic conditions: * COPD: not in exacerbation. on oxygen, but not at home. wean oxygen as able * HLP: continue statin * GERD: continue PPI Thank you for the consult. Will follow along for the time being. DW patient's at bedside. Charges/Coding Visit Charges Inpatient E&M: 59124 Subs Hosp L2
[2022-05-09] MEDS: cloNIDine HCl 0.1 MG Tablet PO (16:12)
[2022-05-09] MEDS: Cefazolin 1 GM/50 ML BAG IV ×2 (16:13→23:09)
[2022-05-09] MEDS: Atenolol 25 MG Tablet PO (23:02)
[2022-05-09] MEDS: Pravastatin 80 MG Tablet PO (23:02)
[2022-05-10] VITALS (12 sets, daily range): BP systolic 137–147; BP diastolic 60–87; PULSE 56–67; RESP 15–18; TEMP 36.4–37.1; O2SAT 90–96; BMI 45.2
[2022-05-10] MEDS: Acetaminophen 500 MG Tablet 1000 MG PO ×3 (04:40→22:54)
[2022-05-10] MEDS: Ensure Surgery 237 ML LIQUID PO (09:08)
[2022-05-10] MEDS: Lactated Ringers 1,000 ML 100 ML IV (09:09)
[2022-05-10] MEDS: hydroCHLOROthiazide 12.5mg 12.5 MG PO (09:10)
[2022-05-10] MEDS: Losartan Potassium 100 MG Tablet PO (09:10)
[2022-05-10] MEDS: Atenolol 25 MG Tablet PO ×2 (09:10→22:54)
--- NOTE | 2022-05-10 10:08 | PCM.PN.HOSP ---
Subjective Subjective Follow-up on postop medical management: Patient was seen and examined. He complains of feeling weak in his legs more than before. He denies any incontinence of urine or stool. Denied any numbness in his extremities. Denied any fever or chills. His pain is fairly controlled. Objective Data Objective Data Vital Signs: Vital Signs Temp Pulse Resp BP Pulse Ox O2 Del Method O2 Flow Rate 97.6 F L 56 L 16 137/60 H 95 Nasal Cannula 2 05/10/22 08:50 05/10/22 08:50 05/10/22 08:50 05/10/22 08:50 05/10/22 08:50 05/10/22 08:58 05/10/22 08:58 Oxygen Flow Rate (L/min) 2 Oxygen Delivery Method Nasal Cannula Weight: 147 kg Body Mass Index (BMI) 45.1 Intake & Output: Intake and Output for Last 24 Hours 05/08/22 05/09/22 05/10/22 23:59 23:59 23:59 Intake Total 2770.67 / 3020.67 1250 / 1250 Output Total 2745 / 2745 520 / 520 Balance 25.67 / 275.67 730 / 730 Lab / Micro Data Micro: Microbiology 04/27/22 08:35 Swab (Method) Nasal Screen MRSA/MSSA - Final Radiography Diagnostic Testing: Radiology Impression Spine X-Ray 05/09/22 08:55 IMPRESSION: The localization instrument is seen posterior to the L5-S1 disc space level. Electronically Signed: Gianluca Vila MD at 10:19 EST , Spine X-Ray 05/09/22 09:12 IMPRESSION: The localization instrument is seen posterior to the L4-L5 disc space level. Electronically Signed: Gianluca Vila MD at 10:18 EST , Physical Exam Narrative Physical exam: General: Alert, Oriented x3, Cooperative, morbidly obese, on 2 L of oxygen HEENT: Atraumatic Oral: Moist Mucosa Neck: Supple Lungs: Diminished to auscultation Cardiovascular: HS I+II, regular, no murmurs Abdomen: Bowel Sounds Present, Soft, Non Tender Extremities: Bilateral leg edema +1 Skin: No rashes, No breakdown Neurological: Grossly intact Psych/Mental Status: Appropriate Const Constitutional Narrative: groggy. NAD. dozes off easily. Resp Resp Narrative: diminished but clear. Cardio regular rate, regular rhythm, S1 normal heart sound and S2 normal heart sound GI normal to inspection, nondistended, normoactive bowel sounds, soft to palpation, non-tender and non-distended Extremity Extremity Narrative: +1 LE edema. Assessment & Plan Assessment/Plan (1) HTN (hypertension): QUALIFIERS: Hypertension type: essential hypertension Qualified Code(s): I10 - Essential (primary) hypertension PLAN: Likely exacerbated by pain and surgery. Continue atenolol, HCTZ, losartan. Will add PRN clonidine for severely elevated BPs. Likely will not need to continue upon discharge. PLAN: Plan 1. POD #1 status post lumbar laminectomy/decompression L4-L5 for spinal stenosis Pain is fairly controlled, PT and OT to evaluate and treat Follow-up on surgical recommendation. 2. Hypertension, controlled, continue on atenolol, clonidine, hydrochlorothiazide, losartan 3. COPD, not in acute exacerbation, in prn breathing treatments 4. Hyperlipidemia, continue on statin 5. GERD, continue on PPI 6. DVT PPx- SCDs Charges/Coding Visit Charges Office Visits / Consults: 33449 OP Consult L5
--- NOTE | 2022-05-10 10:40 | CASEMGMT ---
RN JEFF Face to Face with patient for initial transition planning/care coordination assessment. RN CM introduced self and role at [facility]. Patient lying in bed, alert and oriented. Patient willing to participate in assessment and is able to answer all questions appropriately. Care providers, pharmacy, and demographics verified. Patient wishes to discharge home, denies need for home health at this time. Will monitor patient for HHC and walker at discharge. Patient states he has no further needs or concerns at this time. CM to follow for discharge planning needs that may arise. PCP: Steve Specialists: [facility] Preferred Pharmacy: [facility] Insurance: [facility] Prescription Benefit: yes Living Will/HPOA: yes, Cheri Gan LNOK: Living Arrangements: Patient lives in a 1.5 story home with bedroom on second floor. Patient states he is normally independent and able to ambulate the stairs at home. Transportation: self, DME/HHC: Patient states he has raised toilet at home. Denies further DME. No previous HHC or SNF. Will monitor patient for therapy at discharge and walker. Disposition Plan: Patient to discharge home with family support and follow-up plans in place. Aleena CALDERON, RN, CM
--- NOTE | 2022-05-10 13:10 | PCM.PN.ORT ---
Subjective Subjective Postop day #1. Mr. Gan is seen on rounds. He reports that the numbness that he had in his ankles after surgery yesterday is improved. As I mentioned in my note at the hospital we had a little issue with vascularization of his lower extremities probably because of his large size. The software test technician doing the neuro monitoring explained that it was certainly not the surgery but rather it was a peripheral vascular thing that he has seen before. Nonetheless he has good motor strength and he can wiggle his toes and he does not have any numbness in his feet at this time. He is, slow to get moving and therapy has not been able to walking very far. He simply is too large with bad lungs to be real spry when he walks but we will try to get him there. He still has significant drainage from his Hemovac so we will leave it in 1 more day. I will remove it tomorrow and hopefully he will be able to go home tomorrow. Progress at this point is not great but at least its acceptable. Objective Data Objective Data Vital Signs: Vital Signs Temp Pulse Resp BP Pulse Ox O2 Del Method O2 Flow Rate 97.6 F L 56 L 16 137/60 H 95 Nasal Cannula 2 05/10/22 08:50 05/10/22 08:50 05/10/22 08:50 05/10/22 08:50 05/10/22 08:50 05/10/22 11:16 05/10/22 11:16 Oxygen Flow Rate (L/min) 2 Oxygen Delivery Method Nasal Cannula Weight: 324 lb 1.272 oz Body Mass Index (BMI) 45.1 Intake & Output: Intake and Output for Last 24 Hours 05/08/22 05/09/22 05/10/22 23:59 23:59 23:59 Intake Total 2770.67 / 3020.67 1250 / 1250 Output Total 2745 / 2745 520 / 520 Balance 25.67 / 275.67 730 / 730 Lab / Micro Data Micro: Microbiology 04/27/22 08:35 Swab (Method) Nasal Screen MRSA/MSSA - Final
--- NOTE | 2022-05-10 14:54 | CASEMGMT ---
CONCHITA AGUILAR NOTE: Intro role of CM to patient and LOYD form explained re: Observation status for treatment of lumbar laminectomy decompression.? Explained hospitalization will be paid per his insurance policy for Outpatient billing?and condition will continue to be evaluated for Inpt necessity. Also let pt know that [facility] sends paper in the billing packet with their phone number if questions arise. Pt verbalizes understanding and does not have further questions. ?Form signed, copy made and placed in chart, and original given to pt. Sukh CALDERON RN CM
[2022-05-10] MEDS: Ipratropium/Albuterol Sulfate 3 ML AMPUL.NEB INHALATION (19:00)
[2022-05-10] MEDS: Pravastatin 80 MG Tablet PO (22:54)
[2022-05-10] MEDS: 0.9% Saline Lock 10 ML Syringe IV (23:03)
[2022-05-11 01:18] VITALS: BP 168/93; PULSE 66; RESP 20; TEMP 36.4; O2SAT 96
[2022-05-11] MEDS: traMADol 50 MG Tablet PO ×2 (03:33→09:53)
[2022-05-11 06:29] VITALS: BP 148/75; PULSE 58; RESP 20; TEMP 36.4; O2SAT 96
[2022-05-11] MEDS: Acetaminophen 500 MG Tablet 1000 MG PO (06:34)
[2022-05-11 07:41] VITALS: PULSE 56; RESP 16; O2SAT 93
[2022-05-11] MEDS: Ipratropium/Albuterol Sulfate 3 ML AMPUL.NEB INHALATION (07:41)
[2022-05-11 08:02] VITALS: O2SAT 92
[2022-05-11] MEDS: hydroCHLOROthiazide 12.5mg 12.5 MG PO (09:48)
[2022-05-11] MEDS: Atenolol 25 MG Tablet PO (09:48)
[2022-05-11] MEDS: Losartan Potassium 100 MG Tablet PO (09:48)
[2022-05-11 11:00] VITALS: BP 134/70; PULSE 62; RESP 16; TEMP 36.7; O2SAT 97
--- NOTE | 2022-05-11 12:29 | PN.HOSP_ITS ---
Subjective Subjective Follow-up on postop medical management: Patient was seen and examined.?He has been ambulating around with a walker. He is eager to be discharged. Objective Data Objective Data Vital Signs: Vital Signs Temp Pulse Resp BP Pulse Ox O2 Del Method O2 Flow Rate 97.5 F L 56 L 16 148/75 H 92 Room Air 2 05/11/22 06:29 05/11/22 07:41 05/11/22 07:41 05/11/22 06:29 05/11/22 08:02 05/11/22 10:00 05/10/22 15:54 Oxygen Flow Rate (L/min) 2 Oxygen Delivery Method Room Air Weight: 147 kg Body Mass Index (BMI) 45.1 Intake & Output: Intake and Output for Last 24 Hours 05/09/22 05/10/22 05/11/22 23:59 23:59 23:59 Intake Total 2770.67 / 3020.67 2256.58 / 2256.58 Output Total 2745 / 2745 1660 / 1660 Balance 25.67 / 275.67 596.58 / 596.58 Lab / Micro Data Micro: Microbiology 04/27/22 08:35 Swab (Method) Nasal Screen MRSA/MSSA - Final Physical Exam Narrative Physical exam: General: Alert, Oriented x3, Cooperative, morbidly obese, off oxygen. HEENT: Atraumatic Oral: Moist Mucosa Neck: Supple Lungs: Diminished to auscultation Cardiovascular: HS I+II, regular, no murmurs Abdomen: Bowel Sounds Present, Soft, Non Tender, dressing at the lower back is clean and intact Extremities: Bilateral leg edema +1 Skin: No rashes, No breakdown Neurological: Grossly intact Psych/Mental Status: Appropriate Assessment & Plan Assessment/Plan (1) HTN (hypertension): QUALIFIERS: Hypertension type: essential hypertension Qualified Code(s): I10 - Essential (primary) hypertension PLAN: Likely exacerbated by pain and surgery. Continue atenolol, HCTZ, losartan. Will add PRN clonidine for severely elevated BPs. Likely will not need to c ontinue upon discharge. PLAN: Plan 1. POD #2 status post lumbar laminectomy/decompression L4-L5 for spinal stenosis Pain is fairly controlled, PT and OT to evaluate and treat Follow-up on surgical recommendation. 2. Hypertension, controlled, continue on atenolol, clonidine, hydrochlorothiazide, losartan 3. COPD, not in acute exacerbation, in prn breathing treatments 4. Hyperlipidemia, continue on statin 5. GERD, continue on PPI 6. DVT PPx- SCDs Charges/Coding Visit Charges Inpatient E&M: 75743 Subs Hosp L2
--- NOTE | 2022-05-11 12:37 | DCINST_ITS ---
Discharge Instructions Follow Up Care Test Results: Test results from this visit will be discussed in further detail at your follow- up appointment, if applicable. Discharge Plan Admission Admit Date/Time: 05/09/22 11:37 Primary Reason for Your Visit: back surgery Attending Provider: Lamont Keith Primary Care Provider: Saturnino Wilson Consulting Providers: Elizabeth Ovalles ; Juliann Marroquin ; Donna Kaufman ; Stephon Kaufman ; Gil Tristan ; Saturnino Dempsey ; Luis Eduardo Jones ; Oliver Love ; John Calvillo ; Spike Harris ; Kalpana Barbour ; Conner Wakefield ; Ana Gotti ; Reji Xie ; Shaun Corona ; Brandon English ; Sharon Michelle ; Dwayne Tejeda ; Donya Senior NP ; Mynor Thorne ; Elizabeth Juan Discharge Orders/Prescriptions Prescriptions: No Action irbesartan 300 mg tablet 300 mg PO DAILY hydrochlorothiazide 25 mg tablet 12.5 mg PO DAILY Ultra CoQ10 75 mg capsule 75 mg PO DAILY baclofen 20 mg tablet 20 mg PO PRN PRN (Reason: Pain) tramadol 50 mg tablet 50 mg PO PRN PRN (Reason: Pain) atenolol 25 mg tablet 25 mg PO BID pravastatin 80 MG tablet 80 mg PO QHS omeprazole 40 mg capsule,delayed release(DR/EC) 40 mg PO PRN PRN (Reason: GERD) Referrals / Follow Up: Saturnino Wilson MD [Primary Care Provider] - Disposition Disposition (needs filled in before D/C Order can be placed): Home, Self Care
--- NOTE | 2022-05-11 12:39 | PCM.DC.SUM ---
Providers Date of Admission: 05/09/22 Primary Care Physician: Dr. Saturnino Wilson MD Consultations 05/09/22 13:32 Consult: Hospitalist Routine Consulting Provider: Malini Flynn Reason for Consult: Medical Management EMERGENT Consult: No MD Notified: Yes Date Notified: 05/09/22 Time Notified: 11:39 Method of Notification: Text Comments:: Dr. Dempsey Reason For Visit: LUMBAR LAMINECTOMY DECOMPRESSION L4-5 Diagnosis Discharge Diagnosis (1) HTN (hypertension): Status: Chronic Code(s): I10 - Essential (primary) hypertension Qualifiers: Hypertension type: essential hypertension Qualified Code(s): I10 - Essential (primary) hypertension Medications at Discharge Home Medications pravastatin 80 mg tablet 80 mg PO QHS 03/02/16 coenzyme Q10 75 mg capsule (Ultra CoQ10) 75 mg PO DAILY 06/18/19 hydrochlorothiazide 25 mg tablet 12.5 mg PO DAILY 06/18/19 irbesartan 300 mg tablet 300 mg PO DAILY 06/18/19 atenolol 25 mg tablet 25 mg PO BID 11/09/21 baclofen 20 mg tablet 20 mg PO PRN PRN Pain 11/09/21 tramadol 50 mg tablet 50 mg PO PRN PRN Pain 11/09/21 omeprazole 40 mg capsule,delayed release 40 mg PO PRN PRN GERD 04/25/22 Physical Exam Narrative His discharge summary on Chad Gan. This patient was admitted 2 days ago on the . He underwent lumbar laminectomy at the L4-5 level on that day. This is postop day #2 he reports that his back hurts a lot less today than yesterday. He has been walking with a walker here in the hospital. We will discharge him with a walker. He already has tramadol at home for his pain. He does not like opioids. The dressings were changed and the incision is healing well. I gave him and his directions regarding his activity and regarding his dressing. The dressing is to come off on Sunday 3 days from now. It is to be left off. On Sunday he can begin taking showers with Hibiclens that he has at home. Already has an appointment to see me on the in the office. This the end of discharge summary on Chad Gan. This is Dr. Keith dictating. Weight / BMI Weight Weight: 324 lb 1.272 oz Body Mass Index (BMI) 45.1 ABG / Lab / Microbiology Data Microbiology: Microbiology 04/27/22 08:35 Swab (Method) Nasal Screen MRSA/MSSA - Final Meaningful Use Info Meaningful Use Diagnoses (Choose all that apply): None applicable Discharge Plan Admission Admit Date/Time: 05/09/22 11:37 Primary Reason for Your Visit: back surgery Attending Provider: Lamont Keith Primary Care Provider: Saturnino Wilson Consulting Providers: Elizabeth Ovalles ; Juliann Marroquin ; Donna Kaufman ; Stephon Kaufman ; Gil Tristan ; Saturnino Dempsey ; Luis Eduardo Jones ; Oliver Love ; John Calvillo ; Spike Harris ; Kalpana Barbour ; Conner Wakefield ; Ana Gotti ; Reji Xie ; Shaun Corona ; Brandon English ; Sharon Michelle ; Dwayne Tejeda ; Donya Senior NP ; Mynor Thorne PA ; Elizabeth Juan Discharge Orders/Prescriptions Prescriptions: No Action irbesartan 300 mg tablet 300 mg PO DAILY hydrochlorothiazide 25 mg tablet 12.5 mg PO DAILY Ultra CoQ10 75 mg capsule 75 mg PO DAILY baclofen 20 mg tablet 20 mg PO PRN PRN (Reason: Pain) tramadol 50 mg tablet 50 mg PO PRN PRN (Reason: Pain) atenolol 25 mg tablet 25 mg PO BID pravastatin 80 MG tablet 80 mg PO QHS omeprazole 40 mg capsule,delayed release(DR/EC) 40 mg PO PRN PRN (Reason: GERD) Referrals / Follow Up: Saturnino Wilson MD [Primary Care Provider] - Disposition Disposition (needs filled in before D/C Order can be placed): Home, Self Care
--- NOTE | 2022-05-11 13:17 | CASEMGMT ---
Addendum entered by Jacque Bowles 05/11/22 13:59: Per Maria Luz ARANGO, walker has been delivered to pt's room. Original Note: CONCHITA AGUILAR NOTE: Per MARCELLA Juan, Dr Keith does not want pt to have any therapy @ discharge. Pt is discharging home today. Script received for FWW/heavy duty from Dr Keith. CONCHITA AGUILAR to room to talk w/pt and , who is at bedside. Pt provided w/list of local [employer] companies in network w/pt's insurance and made aware [facility] is [facility] w[facility]. Pt/ choose [facility]. Referral for FWW sent to [facility] via [employer]. Call to Clotilde to notify her of need of Heavy duty walker to be delivered to pt's room today, as he is discharging. E-mail also sent to Clotilde per her request. Pt and deny having any other discharge needs. Sukh CALDERON RN, CM
--- NOTE | 2022-05-11 13:51 | NURSING ---
DR MELENDEZ WAS IN 1230, CHANGED PTS DRSG AND GAVE VERBAL DC INSTRUCTIONS TO PT AND SPOUSE. THEY STATED UNDERSTANDING
== END 2022-05-11 14:01 | disposition home or self-care (01) ==
LOC: MS3 05-10 07:11 → SDC 05-10 08:39 → MS3 05-10 08:39
PROVIDERS: Anesthesiology; Admitting Provider Orthopaedic Surgery; PCP Family Medicine; Referring Provider Orthopaedic Surgery; Visit Provider Orthopaedic Surgery
PROC: (CPT 63030; principal; 2022-05-09 07:00)
DX: M48.061 Spinal stenosis, lumbar region without neurogenic claudication (principal); J44.9 Chronic obstructive pulmonary disease, unspecified; E66.01 Morbid (severe) obesity due to excess calories; Z68.42 Body mass index [BMI] 45.0-49.9, adult; F17.200 Nicotine dependence, unspecified, uncomplicated; K21.00 Gastro-esophageal reflux disease with esophagitis, without bleeding; I10 Essential (primary) hypertension; E78.00 Pure hypercholesterolemia, unspecified; Z79.899 Other long term (current) drug therapy; G47.33 Obstructive sleep apnea (adult) (pediatric)
CPT/HCPCS: 63047; 00630; 36415; 72020; 82962; 83735; 86703; 86706; 86708; 86803; 87081; 93005; 94640; 96361; 96365; 96366; 97116; 97162; 97530; 99218; 99251; 99406; J7120; A4216; G0378; G0463; J2405

== ENCOUNTER → 2022-06-09 | Outpatient (CLI) | payer MEDICARE, SELFPAY ==
[2022-06-09 15:14] LABS: Absolute Lymphocyte Count 2.14 X10^3/uL (0.83-4.51); Absolute Neutrophil Count 6.6 X10^3/uL (2.0-7.7); Basophil# 0.08 X10^3/uL; Basophil% 0.8 % (0-1); Eosinophil# 0.25 X10^3/uL; Eosinophils% 2.5 % (0-5); Hematocrit 46.6 % (40-54); Hemoglobin 15.4 g/dL (13.0-16.5); Lymphocyte # 2.14 X10^3/ul (0.83-4.51); Lymphocyte % 21.7 % (19-41); Mean Corpuscular Volume 99.8 fL (80-94); Mean Platelet Vol. 10.6 fl (6.2-12.0); Monocyte# 0.72 X10^3/uL; Monocyte% 7.3 % (0-10); NRBC Flagged by Analyzer 0 % (0-5); Neutrophil % 66.8 % (47-70); Platelet Count 195 K/mm3 (150-450); RBC Distribution Width SD 47.3 fl (35.1-43.9); Red Blood Count 4.67 M/mm3 (4.6-6.2); White Blood Count 9.9 K/mm3 (4.4-11.0)
[2022-06-09 15:49] LABS: ALB/GLOB Ratio 1.2 RATIO (0.9-2.4); AST(SGOT) 29 U/L (15-37); Alanine Aminotransfer ALT/SGPT 48 U/L (16-61); Albumin, Serum 3.5 g/dL (3.2-5.0); Alkaline Phosphatase 163 U/L (45-117); Anion Gap 8 (5-15); BUN 12 mg/dL (7-18); Calcium,Total 8.8 mg/dL (8.5-10.1); Chloride 110 mmol/L (98-107); EST Glomerular Filtration Rate 103 mL/min (>60); Est Glom Filt Rate - Afr Amer 124 mL/min (>60); Globulin 2.9 g/dL (2.2-4.2); Glucose 98 mg/dL (74-106); Protein, Total 6.4 g/dL (6.4-8.2); Sodium Level 140 mmol/L (136-145)
[2022-06-09 15:58] LABS: Hemoglobin A1c 5.7 % (3.8-5.6)
[2022-06-09 16:48] LABS: Vitamin B12 275 pg/mL (211-911); Vitamin D,25 Hydroxy 21.4 ng/mL
== END | disposition home or self-care (01) ==
LOC: MFPLAB 11:18
PROVIDERS: PCP Family Medicine; Referring Provider Family Medicine; Visit Provider Nurse Practitioner Family
DX: M79.2 Neuralgia and neuritis, unspecified (principal); R60.9 Edema, unspecified
CPT/HCPCS: 36415; 80053; 82306; 82607; 83036; 85025

== ENCOUNTER → 2022-07-06 | Outpatient (CLI) | payer MEDICARE, SELFPAY ==
--- NOTE | 2022-07-06 08:40 | VDLE_ITS ---
Reason For Study: LEG SWELLING RIGHT LEFT CFV is compressible, spontaneous, phasic, CFV is compressible, spontaneous, phasic, competent and demonstrates normal competent, and demonstrates normal augmentation. augmentation. FV is compressible, spontaneous, phasic, FV is compressible, spontaneous, phasic, competent and demonstrates normal competent and demonstrates normal augmentation. augmentation. POP V is compressible, spontaneous, phasic, POP V is compressible, spontaneous, phasic, competent and demonstrates normal competent and demonstrates normal augmentation. augmentation. T/P Trunk is compressible. T/P Trunk is compressible. PTV is compressible. PTV is compressible. RT PerV is compressible. LT PerV is compressible. SFJ is competent and measures 0.73 x 0.70 cm. SFJ is competent and measures 0.78 x 0.87 cm. GSV proximal thigh measures 0.48 x 0.52 cm. GSV proximal thigh measures 0.38 x 0.39 cm. GSV at knee measures 0.35 x 0.36 cm. GSV at knee measures 0.22 x 0.23 cm. GSV is competent throughout. GSV is competent throughout. SSV proximal calf is competent and measures SSV proximal calf is competent and measures 0.21 x 0.20 cm. 0.28 x 0.32 cm. Procedure Exam performed in department. This is a venous duplex using B-mode, color flow and spectral Doppler. The exam was diagnostic. VL/Venous Duplex US - Bennett Extrem Interpretation Summary Deep veins of the bilateral lower extremities are patent and compressible segme ntally. There is no evidence of bilateral lower extremity deep vein thrombosis. The bilateral great saphenous veins appear patent and compressible segmentally. Negative for reflux bilateral Ordering Physician: Magnolia Mckinley Referring Physician: Saturnino Wilson MD Performed By: Jonnie Couch, RVT
== END | disposition home or self-care (01) ==
LOC: CVS 08:39
PROVIDERS: PCP Family Medicine; Referring Provider Physician Assistant; Visit Provider Physician Assistant
DX: M79.89 Other specified soft tissue disorders (principal)
CPT/HCPCS: 93970

== ENCOUNTER → 2022-08-25 | Outpatient (CLI) | payer MEDICARE, SELFPAY ==
[2022-08-25 12:42] LABS: Absolute Lymphocyte Count 2.16 X10^3/uL (0.83-4.51); Absolute Neutrophil Count 7.4 X10^3/uL (2.0-7.7); Basophil# 0.09 X10^3/uL; Basophil% 0.8 % (0-1); Eosinophil# 0.19 X10^3/uL; Eosinophils% 1.8 % (0-5); Hematocrit 43.1 % (40-54); Hemoglobin 15.1 g/dL (13.0-16.5); Lymphocyte # 2.16 X10^3/ul (0.83-4.51); Lymphocyte % 20.1 % (19-41); Mean Corpuscular Hgb 33.8 pg (27.0-32.0); Mean Corpuscular Volume 96.4 fL (80-94); Mean Platelet Vol. 10.5 fl (6.2-12.0); Monocyte% 7.4 % (0-10); NRBC Flagged by Analyzer 0 % (0-5); Neutrophil # 7.43 X10^3/uL (2.7-7.7); Neutrophil % 69.2 % (47-70); Platelet Count 207 K/mm3 (150-450); RBC Distribution Width CV 12.3 % (11.6-14.6); RBC Distribution Width SD 43.8 fl (35.1-43.9); Red Blood Count 4.47 M/mm3 (4.6-6.2); White Blood Count 10.8 K/mm3 (4.4-11.0)
[2022-08-25 12:59] LABS: Vitamin B12 300 pg/mL (211-911); Vitamin D,25 Hydroxy 82.1 ng/mL
[2022-08-25 13:40] LABS: ALB/GLOB Ratio 0.8 RATIO (0.9-2.4); AST(SGOT) 19 U/L (15-37); Alanine Aminotransfer ALT/SGPT 34 U/L (16-61); Albumin, Serum 3.2 g/dL (3.2-5.0); Alkaline Phosphatase 159 U/L (45-117); Anion Gap 8 (5-15); BUN 23 mg/dL (7-18); BUN/Creat Ratio 21.5 RATIO (10-20); Calcium,Total 8.9 mg/dL (8.5-10.1); Chloride 107 mmol/L (98-107); Creatinine, Serum 1.07 mg/dL (0.70-1.30); EST Glomerular Filtration Rate 73 mL/min (>60); Est Glom Filt Rate - Afr Amer 88 mL/min (>60); Globulin 3.9 g/dL (2.2-4.2); Glucose 101 mg/dL (74-106); Potassium 3.8 mmol/L (3.5-5.1); Protein, Total 7.1 g/dL (6.4-8.2); Sodium Level 139 mmol/L (136-145); T4 Free Direct 0.85 ng/dL (0.76-1.46); Thyroid Stim Hormone (TSH) 0.56 uIU/mL (0.358-3.74)
== END | disposition home or self-care (01) ==
LOC: MFPLAB 10:44
PROVIDERS: PCP Family Medicine; Referring Provider Family Medicine; Visit Provider Family Medicine
DX: R20.2 Paresthesia of skin (principal); E55.9 Vitamin D deficiency, unspecified
CPT/HCPCS: 36415; 80053; 82306; 82607; 82746; 84439; 84443; 85025

== ENCOUNTER 2022-09-22 08:00 | Outpatient (RCR) | payer MEDICARE, SELFPAY ==
--- NOTE | 2022-07-14 09:02 | HP.PTEVAL_ITS ---
Patient's Visit Information MAISHA DESAI is a 66 year old M referred to Physical Therapy by Dr. Saturnino Wilson MD with a diagnosis of Chronic back pain, S/P Laminectomy L4/L5. Date of Evaluation: 07/14/22 Physical Therapist: Nathaniel Vences DPT - Visit Plan Frequency: 3x /Week Duration: 4 Weeks Plan: Start with hip/core stability exercises in aquatic setting. Add in general mobility and walking with focus on control. - Subjective Pt. is here today for his initial evaluation with chronic back pain and s/p laminectomy in May 2023. Pt. reports that his pain is much better since the surgery, but he is having trouble walking. He is using a cane at home, walker in community. He has avoided walking/going out much due to fear of falling and his limited mobility. He reports no issues with driving and no issues with sleeping. he does report some neuropathy, but did also report this has improved since surgery. His main c/o is of his difficulty walking, the rest has been much better since surgery. He reports that prior to surgery he was working out a [employer] 4-5x per week with good tolerance. He would like to get back to this. 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 - Pain Lumbar spine Pain Intensity (Out of 10): 0 Pain Intensity Range: 0, 2 - Objective POSTURE: Pt. has slight flexed posture, no later shift noted. PALPATION: Pt. has well healing incision. Pt. has mild tenderness along lumbar erector spinae. Pt. has some swelling in BLEs, 1+ pitting throughout. He did have a doppler which was negative for DVT. Negative homans as well. NEURO: Pt. has normal and equal sensation throughout BLEs. Pt. ah 2+ Achilles and patellar DTR bilaterally. Pt. is able to rise on heels and toes with balance aide. ROM: Lumbar spine: flexion min mod loss, exten mod loss, SB mod loss bilat, rotation mod loss bilat. Tight HS and hip flexors noted. Normal hip and knee ROM noted. MMT: RLE: ankle 5/5 throughout; knee: ext 5/5, flexion 5-/5; hip: flexion 4+/5, abd 4/5, ext 4+/5. LLE: ankle 5/5 throughout; knee: ext 5/5, flexion 5-/5; hip: flexion 4+/5, abd 4/5, ext 4+/5. Core strength: fair-. GAIT: Pt. walks well with a FWW, walking without and AD he has increased lateral sway, not Trendelenburg, but marked weakness noted. Decreased step length and tempo noted without AD. STAIRS: Pt. is able to negotiate well with 2 HR with reciprocal pattern without reports of increased in pain. - Balance/Special Test Scores Lower Extremity Functional Score: 4 - Goals Goal 1:: LTG: Pt. to be I with HEP. Goal Time Frame: 4-6 Weeks Goal 2:: STG: Pt. to be able to walk throughout his home without AD with good tolerance. Goal Time Frame: 2-4 Weeks Goal 3:: LTG: Pt. to be able to ambulate in community with normal gait pattern without use of AD. Goal Time Frame: 4-6 Weeks Goal 4:: LTG: pt. to have increased hip strength to 5/5 throughout allowing for increased stability with all mobility. Goal Time Frame: 4-6 Weeks - Rehabilitation Potential Physical Therapy Diagnosis: Pt. has signs and symptoms consistent with Chronic back pain, S/P Laminectomy L4/L5. pt. has marked difficulty with walking, but his strength is decent. I think if we did some general mobility, and light hip strengthening as tolerated he will do very well. - Anticipated Interventions Patient/Client Instruction: Educate patient on: Condition, Plan of Care, Risk Factors, Benefits of Fitness Program For the Purpose of:: To improve decision making, To facilitate caregiver knowledge, To improve self management, To prevent re-injury, To improve ability to perform tasks related to life management, To improve tolerance to ADL's Therapeutic Exercise to Include: Strength training, Body mechanics, Postural training, Flexibilty training, Gait and locomotor training, In an aquatic setting For the Purpose of:: To increase ROM, To improve nutrient delivery to tissue, To increase oxygenation perfusion, To improve muscle performance and motor function, To improve gait and locomotor functions, To improve health of tissue, To decrease soft tissue restriction, To increase flexibility/ROM Thank you for the opportunity to evaluate your patient. For Medicare and Medicare HMO plans, please review the plan of care and approve it. It will need to be FAXED BACK to us at [phone] for Medicare purposes. For Medicare only, by signing this I certify the plan of care. Please let me know if there are questions or concerns regarding this plan of care. Physician Signature: Date:
--- NOTE | 2022-08-11 08:34 | HP.PTREVAL ---
Dr. Saturnino Wilson MD, It has been my pleasure to treat MAISHA DESAI over the last 13 visits for Chronic back pain, S/P Laminectomy L4/L5. Please see the progress note below for an update on the physical therapy plan of care! Subjective: PT. reports having increased L posterior hip pain. He feels like the pool is helping. I can do most everything in the pool. Pt. reports increased walking without AD at home with decent tolerance. Objective/Function: BLE: 5/5 strength, except L hip abd and ext 4+/5. Pt. had no pain with testing this date. ROM: Improved HS length, but still tight. He has increased tightness in L hip with ER compared to opposite side. This did stretch a sore area for his posterior hip. Possible piriformis irritation. GAIT: Pt. is ambulating with cane for short distances, no AD in home and FWW (folded??) I talked to him about not using it this way, but if he is going to, I would rather him use a cane. Pt. reports understanding. He has decreased lateral sway with gait without AD. He does have some increased L hip pain with gait without AD, but minimal. I talked to him about progressing out of the water to land exercises. Pt. wants to trial 1 more week in pool then attempt land. We can determine tolerance after wards. I did give him glute bridges and piriformis stretching for HEP. Pt. given handouts, but might require further instruction Plan Plan: x1 week in pool, 2nd week on land. Determine patient tolerance to land after wards. Cont. to progress hip stability, core strength, attempt to add in light piriformis stretching. Progress gait quality as well. Balance/Gait/Functional tests - Balance/Special Test Scores Lower Extremity Functional Score: 21 Goals Goal 1:: LTG: Pt. to be I with HEP. Goal Time Frame: 4-6 Weeks Goal Progress: Progressing Goal 2:: STG: Pt. to be able to walk throughout his home without AD with good tolerance. Goal Time Frame: 2-4 Weeks Goal Progress: Progressing Goal 3:: LTG: Pt. to be able to ambulate in community with normal gait pattern without use of AD. Goal Time Frame: 4-6 Weeks Goal Progress: Progressing Goal 4:: LTG: pt. to have increased hip strength to 5/5 throughout allowing for increased stability with all mobility. Goal Time Frame: 4-6 Weeks Goal Progress: Progressing Anticipated Interventions Patient/Client Instruction: Educate patient on: Condition, Plan of Care, Risk Factors, Benefits of Fitness Program For the Purpose of:: To improve decision making, To facilitate caregiver knowledge, To improve self management, To prevent re-injury, To improve ability to perform tasks related to life management, To improve tolerance to ADL's Therapeutic Exercise to Include: Strength training, Body mechanics, Postural training, Flexibilty training, Gait and locomotor training, In an aquatic setting For the Purpose of:: To increase ROM, To improve nutrient delivery to tissue, To increase oxygenation perfusion, To improve muscle performance and motor function, To improve gait and locomotor functions, To improve health of tissue, To decrease soft tissue restriction, To increase flexibility/ROM Please do not hesitate to contact me at [phone] by phone or if you have questions or concerns regarding this new plan of care! Sincerely, Nathaniel Vences DPT
--- NOTE | 2022-09-22 08:40 | HP.PTDCSUM_ITS ---
It has been my pleasure to treat MAISHA DESAI referred by Dr. Saturnino Wilson MD, with the diagnosis of Chronic back pain, S/P Laminectomy L4/L5 for a total of 27 visit(s). Discharge Date: 09/22/22 Please see the following information for a summary of their discharge status. Subjective: Pt. reports no pain today. He has started going to [employer] on his days off with good results. He reports doing most of his exercises well. Lumbar spine Pain Intensity (Out of 10): 0 L posterior hip Pain Intensity (Out of 10): 0 % Improvement: 95 Objective/Function: ROM: Pt. has good ROM throughout lumbar spine, min loss with flexion no pain. min loss throughout no pain. He has an underlying soreness in his lumbar spine, but minimal. MMT: RLE: DF. ankle 24.7, knee: ext 54.9#, flexion 42.4#; hip: flexion 24.2, abd 21.4#. LLE: ankle DF 21.5#; knee: ext 52.1#, flexion 39.7#; hip: flexion 21.0, abd 22.3#. Core strength fair. Pt. ambulates with and without quad cane. Cane for longer distances, no cane in home and for short distances. He does have a little Trendelenburg with correction, but much less than previously. No issues with walking. Goal 1:: LTG: Pt. to be I with HEP. Goal Progress: Goal Met Goal 2:: STG: Pt. to be able to walk throughout his home without AD with good tolerance. Goal Progress: Goal Met Goal 3:: LTG: Pt. to be able to ambulate in community with normal gait pattern without use of AD. Goal Progress: Progressing Goal 4:: LTG: pt. to have increased hip strength to 5/5 throughout allowing for increased stability with all mobility. Goal Progress: Progressing Plan: Pt. to be DC from PT at this point in time. Discharge Comments: Pt. did well with PT. Pt. is back to doing all things I, with intermittent use of quad cane. Pt. is I with HEP. Pt. plans on continuing to do exercises at [employer]. Pt. to call back with any questions. If there are questions or concerns regarding this patient's physical therapy, please feel free to call me at [phone]. Thank you for the referral of this patient. Sincerely, Nathaniel Vences, DPT Balance/Gait/Functional tests - Balance/Special Test Scores Oswestry Low Back Score: 4 Lower Extremity Functional Score: 21
== END 2022-09-22 19:00 | disposition home or self-care (01) ==
LOC: PT 08:00
PROVIDERS: PCP Family Medicine; Referring Provider Family Medicine; Visit Provider Family Medicine
DX: M54.9 Dorsalgia, unspecified (principal); G89.29 Other chronic pain
CPT/HCPCS: 97110; 97113; 97161; 97164

== ENCOUNTER → 2023-01-17 | Outpatient (CLI) | payer MEDICARE, SELFPAY ==
--- NOTE | 2023-01-17 13:52 | NEURO_ITS ---
NCS and/or EMG Patient Report Ordering Doctor: Tiesha Lopez DATE OF SERVICE: 01/17/23 Chad is for electrodiagnostic testing of the lower limbs. He reports swelling and numbness in both feet and lower legs. He had spinal surgery approximately 9 months ago. Electrodiagnostic testing: Left peroneal motor nerve demonstrates normal distal latency with reduced amplitude and normal conduction velocity. Left tibial motor nerve demonstrates normal distal latency and amplitude with reduced conduction velocity. Sensory responses could not be obtained. Limited muscles were tested in the left lower limb. No acute denervation was noted. Due to the presence of 3+ pitting edema, the alternate lower limb was not tested. Electrodiagnostic impression: This is an abnormal study in the left lower limb. However, this test is technically limited due to the presence of significant lower extremity edema. 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 However a completely accurate diagnosis cannot be made without testing of the right lower limb. Would recommend repeat testing once there is i mprovement in the patient's pitting edema as this can affect the test results. Multi Select Codes Neurology Neurology Interp Codes: 98102-54 EMG, Limited and 71182-46 Nrv cndj tst 5-6 studies (interp)
== END | disposition home or self-care (01) ==
LOC: PSN 08:30
PROVIDERS: PCP Family Medicine; Referring Provider Nurse Practitioner; Visit Provider Nurse Practitioner
DX: M48.061 Spinal stenosis, lumbar region without neurogenic claudication (principal)
CPT/HCPCS: 95885; 95909

== ENCOUNTER → 2023-02-09 | Outpatient (CLI) | payer MEDICARE, SELFPAY ==
--- NOTE | 2023-02-09 12:51 | CT_ITS ---
STUDY: LOW DOSE CT LUNG CANCER SCREENING REASON FOR EXAM: Male, 67 years old. tobacco use RADIATION DOSAGE (If Supplied By Facility): CTDIvol = ( 4.02 ) mGy, DLP = ( 158.03 ) mGycm TECHNIQUE: No contrast was administered. Low dose technique was utilized (average mAS-38 and kVp 120). 1.25 mm axial source images with a slice interval of 1.25-mm were reconstructed in lung windows. 2.5 mm axial source images with a slice interval of 2.5-mm were reconstructed in lung windows. 5.0 mm axial source images with a slice interval of 5.0-mm were reconstructed in soft tissue windows. COMPARISON: None. NODULES: No suspicious nodules are seen. Emphysema: Hyperinflation. Emphysematous changes. Bullous formation in the upper lobes as well as subpleural bleb formation. Interstitial scarring at the lung bases slightly more prominent on the right side. Endobronchial lesion: None Aorta: Atherosclerotic plaque formation of the aortic arch. CORONARY ARTERIES: Coronary artery calcification is seen. Heart: Unremarkable Pulmonary artery: Unremarkable Mediastinal nodes: Small benign-appearing mediastinal lymph nodes. Other chest and abdominal findings: Degenerative changes of the thoracic spine. CT/Low Dose CT Lung Screening IMPRESSION: Lung-RADS category 2 - Continue annual screening with LDCT in 12 months. IMPORTANT NOTES FOR USE: ACR Lung-RADS Version 1.1 Assessment Categories Release Date: 2018 Category: Coded 0-4 bases on nodule(s) with highest degree of suspicion. Negative screen is defined as categories 1 and 2; a positive screen is defined as categories 3 and 4. Category 3 and 4A nodules that are unchanged on interval CT should be coded as category 2, and individuals returned to screening in 12 months. Category 4X: Category 3 or 4 nodules with additional imaging findings that increase the suspicion of lung cancer, such as spiculation, GGN that doubles in size in 1 year, enlarged lymph notes, etc. Category Modifiers: S (significant finding unrelated to lung cancer) Electronically Signed: Gianluca Vila MD at 15:07 EDT ,
== END | disposition home or self-care (01) ==
LOC: CT 12:50
PROVIDERS: PCP Family Medicine; Referring Provider Family Medicine; Visit Provider Family Medicine
DX: Z12.2 Encounter for screening for malignant neoplasm of respiratory organs (principal); Z87.891 Personal history of nicotine dependence
CPT/HCPCS: 71271

== ENCOUNTER → 2023-02-26 | Outpatient (CLI) | payer MEDICARE, SELFPAY ==
[2023-02-26 12:04] LABS: Absolute Neutrophil Count 9.2 X10^3/uL (2.0-7.7); Basophil# 0.08 X10^3/uL; Basophil% 0.7 % (0-1); Eosinophil# 0.11 X10^3/uL; Eosinophils% 0.9 % (0-5); Hematocrit 44.6 % (40-54); Hemoglobin 14.8 g/dL (13.0-16.5); Lymphocyte % 16.3 % (19-41); Mean Corp Hgb Conc 33.2 g/dL (32-36); Mean Corpuscular Hgb 33.4 pg (27.0-32.0); Mean Corpuscular Volume 100.7 fL (80-94); Mean Platelet Vol. 10.3 fl (6.2-12.0); Monocyte% 6.5 % (0-10); NRBC Flagged by Analyzer 0 % (0-5); Neutrophil % 74.7 % (47-70); Platelet Count 214 K/mm3 (150-450); RBC Distribution Width CV 12.8 % (11.6-14.6); RBC Distribution Width SD 47.7 fl (35.1-43.9); Red Blood Count 4.43 M/mm3 (4.6-6.2); White Blood Count 12.3 K/mm3 (4.4-11.0)
[2023-02-26 12:54] LABS: ALB/GLOB Ratio 0.8 RATIO (0.9-2.4); AST(SGOT) 24 U/L (15-37); Alanine Aminotransfer ALT/SGPT 36 U/L (16-61); Albumin, Serum 3.2 g/dL (3.2-5.0); Alkaline Phosphatase 132 U/L (45-117); Anion Gap 6 (5-15); BUN 31 mg/dL (7-18); BUN/Creat Ratio 25.2 RATIO (10-20); Calcium,Total 8.5 mg/dL (8.5-10.1); Chloride 108 mmol/L (98-107); Creatinine, Serum 1.23 mg/dL (0.70-1.30); EST Glomerular Filtration Rate 62 mL/min (>60); Est Glom Filt Rate - Afr Amer 75 mL/min (>60); Glucose 121 mg/dL (74-106); Potassium 4.2 mmol/L (3.5-5.1); Protein, Total 7.2 g/dL (6.4-8.2); Sodium Level 136 mmol/L (136-145)
[2023-02-26 12:58] LABS: Microalbumin,Random Urine 6.9 mg/L (NO RANGE EST.); Microalbumin:Creatinine Ratio 4.5 mg/g CRE (<30 mg/g CRE)
== END | disposition home or self-care (01) ==
LOC: MFPLAB 10:28
PROVIDERS: PCP Family Medicine; Visit Provider Family Medicine
DX: M48.061 Spinal stenosis, lumbar region without neurogenic claudication (principal); I10 Essential (primary) hypertension
CPT/HCPCS: 36415; 80053; 82043; 82570; 85025

== ENCOUNTER → 2023-12-12 | Outpatient (CLI) | payer MEDICARE, SELFPAY ==
[2023-12-12 10:42] LABS: Absolute Lymphocyte Count 2.22 X10^3/uL (0.83-4.51); Absolute Neutrophil Count 6.9 X10^3/uL (2.0-7.7); Basophil# 0.08 X10^3/uL; Basophil% 0.8 % (0-1); Eosinophil# 0.16 X10^3/uL; Eosinophils% 1.6 % (0-5); Hematocrit 42.7 % (40-54); Hemoglobin 14.2 g/dL (13.0-16.5); Lymphocyte # 2.22 X10^3/ul (0.83-4.51); Lymphocyte % 21.7 % (19-41); Mean Corp Hgb Conc 33.3 g/dL (32-36); Mean Corpuscular Hgb 33.6 pg (27.0-32.0); Mean Corpuscular Volume 100.9 fL (80-94); Monocyte# 0.78 X10^3/uL; Monocyte% 7.6 % (0-10); NRBC Flagged by Analyzer 0 % (0-5); Neutrophil # 6.92 X10^3/uL (2.7-7.7); Neutrophil % 67.4 % (47-70); Platelet Count 235 K/mm3 (150-450); RBC Distribution Width CV 13.2 % (11.6-14.6); RBC Distribution Width SD 49.3 fl (35.1-43.9); Red Blood Count 4.23 M/mm3 (4.6-6.2); White Blood Count 10.3 K/mm3 (4.4-11.0)
[2023-12-12 11:14] LABS: Microalbumin,Random Urine < 5.0 mg/L (NO RANGE EST.)
[2023-12-12 11:19] LABS: ALB/GLOB Ratio 0.8 RATIO (0.9-2.4); AST(SGOT) 23 U/L (15-37); Alanine Aminotransfer ALT/SGPT 41 U/L (16-61); Albumin, Serum 3.1 g/dL (3.2-5.0); Alkaline Phosphatase 131 U/L (45-117); Anion Gap 7 (5-15); BUN 16 mg/dL (7-18); BUN/Creat Ratio 16.6 RATIO (10-20); Calcium,Total 8.7 mg/dL (8.5-10.1); Chloride 106 mmol/L (98-107); Creatinine, Serum 0.96 mg/dL (0.70-1.30); EST Glomerular Filtration Rate 82 mL/min (>60); Est Glom Filt Rate - Afr Amer 99 mL/min (>60); Globulin 3.9 g/dL (2.2-4.2); Glucose 121 mg/dL (74-106); Potassium 3.9 mmol/L (3.5-5.1); Sodium Level 136 mmol/L (136-145); Thyroid Stim Hormone (TSH) 0.52 uIU/mL (0.358-3.74)
== END | disposition home or self-care (01) ==
LOC: MFPLAB 08:42
PROVIDERS: PCP Family Medicine; Visit Provider Family Medicine
DX: M48.061 Spinal stenosis, lumbar region without neurogenic claudication (principal); E66.01 Morbid (severe) obesity due to excess calories; I10 Essential (primary) hypertension
CPT/HCPCS: 36415; 80053; 82043; 82570; 84443; 85025

== ENCOUNTER → 2024-04-18 | Outpatient (CLI) | payer MEDICARE, SELFPAY ==
--- NOTE | 2024-04-18 06:46 | CT_ITS ---
EXAM: CT CHEST, LUNG CANCER SCREENING WITHOUT INTRAVENOUS CONTRAST CLINICAL INDICATION: active tobacco use/inhaled TECHNIQUE: Helically acquired images were obtained of the chest without intravenous contrast using low dose (LDCT) lung cancer screening protocol. This CT exam was performed using one or more of the following dose reduction techniques: automated exposure control, adjustment of the mA and/or kV according to patient size, and/or use of iterative reconstruction technique. COMPARISON: 02/09/2023 and 07/08/2018 FINDINGS: LUNGS AND PLEURAL SPACES: Centrilobular emphysema. Within the left mainstem bronchus extending into lobar bronchi, there are peripheral filling defects which are nonspecific, perhaps secretions. Right apical upper lobe pleural-based nodule measuring approximately 9 mm. Associated pleural thickening. Right middle lobe triangular pleural-based nodule along the fissure measuring approximately 5 mm. Minimal dependent atelectasis bilaterally. No pneumothorax. HEART: Coronary artery calcifications. Heart size is normal. No pericardial effusion. MEDIASTINUM: No significant abnormality. No mediastinal or hilar adenopathy. Esophagus is unremarkable. No hiatal hernia. THYROID: No significant abnormality. No thyroid lesions. BONES/JOINTS: Degenerative changes in the spine. No suspicious lytic or blastic abnormality. VASCULATURE: Atherosclerosis. LYMPH NODES: No significant abnormality. No enlarged lymph nodes. CT/Low Dose CT Lung Screening IMPRESSION: ACR Lung CT Screening Reporting And Data System (Lung-RADS) score: 4AS - Suspicious. Additional clinically significant or potentially clinically significant findings are described. Recommend low-dose CT (LDCT) in 3 months or PET/CT for solid components 8 mm or larger in size. Electronically Signed: Remington Marie DO at 20:52 EDT ,
== END | disposition home or self-care (01) ==
LOC: CT 06:45
PROVIDERS: PCP Family Medicine; Referring Provider Family Medicine; Visit Provider Family Medicine
DX: Z12.2 Encounter for screening for malignant neoplasm of respiratory organs (principal); F17.210 Nicotine dependence, cigarettes, uncomplicated
CPT/HCPCS: 71271

== ENCOUNTER → 2024-05-05 | Outpatient (CLI) | payer MEDICARE, SELFPAY ==
--- NOTE | 2024-05-05 07:30 | MRI_ITS ---
STUDY: MRI LUMBAR SPINE WITHOUT CONTRAST REASON FOR EXAM: Male, 68 years old. pain TECHNIQUE: Standardized fat and water weighted pulse sequences were obtained in the sagittal and axial planes. COMPARISON: X-ray the lumbar spine dated April 08, 2024. MRI of the brain dated November 21, 2021 FINDINGS: Normal lumbar lordosis. There is no substantial scoliosis. Normal conus medullaris that terminates at the T12 level. No marrow edema or fracture or compression deformity is present. T12-L1: Mild anterior endplate spurring. Normal disc height, hydration and morphology. Normal bilateral facet joints. Normal central canal and bilateral lateral recesses. Normal bilateral intervertebral neural foramina. L1-2: Moderate disc space narrowing with a diffuse disc osteophyte complex. Mild facet joint hypertrophy. Normal central canal and bilateral lateral recesses. Normal bilateral intervertebral neural foramina. L2-3: Mild endplate spurring. Mild Modic endplate degenerative signal. Diffuse disc desiccation with mild to moderate disc space narrowing and diffuse disc bulging. Retrolisthesis of 2 to 3 mm. Moderate central canal stenosis and bilateral lateral recess stenosis with nerve root compression. Moderate facet joint and ligament of flavum hypertrophy. Mild bilateral foraminal stenosis. L3-4: Mild endplate spurring. Mild Modic endplate degenerative signal. Diffuse disc desiccation with mild to moderate disc space narrowing and a diffuse disc bulge. Severe central canal stenosis and severe facet joint and ligament of flavum hypertrophy. Mild right foraminal stenosis. Moderate left foraminal stenosis with nerve root compression. L4-5: Posterior surgical decompressive defect. Moderate Modic endplate degenerative signal and spurring.. Moderate facet joint hypertrophy with moderate bilateral foraminal stenosis and nerve root compression. Mild central canal stenosis. Moderate Modic endplate degenerative signal is present. L5-S1: Left laminotomy defect. Mild to moderate Modic endplate degenerative signal. Severe disc space narrowing with posterior disc spur complex. Moderate left and mild right facet joint hypertrophy. Left lateral recess stenosis with nerve root compression. Normal central canal and right lateral recess. Moderate left foraminal stenosis with nerve root compression. Normal right neural foramen. Normal visualized sacral ala. Normal visualized paraspinous soft tissue structures. MRI/Spine Lumbar (Routine) IMPRESSION: Multilevel degenerative changes, as described above. Electronically Signed: Darek Lugo MD at 13:18 EST ,
== END | disposition home or self-care (01) ==
LOC: MRI 07:31
PROVIDERS: PCP Family Medicine; Referring Provider Student in an Organized Health Care Education/Training Program; Visit Provider Student in an Organized Health Care Education/Training Program
DX: M54.50 Low back pain, unspecified (principal)
CPT/HCPCS: 72148

== ENCOUNTER → 2024-07-15 | Outpatient (CLI) | payer MEDICARE, SELFPAY ==
[2024-07-15 09:59] LABS: Absolute Lymphocyte Count 2.17 X10^3/uL (0.83-4.51); Basophil# 0.06 X10^3/uL; Basophil% 0.6 % (0-1); Eosinophil# 0.19 X10^3/uL; Hematocrit 41.6 % (40-54); Lymphocyte # 2.17 X10^3/ul (0.83-4.51); Lymphocyte % 23.4 % (19-41); Mean Corp Hgb Conc 33.7 g/dL (32-36); Mean Corpuscular Hgb 33.3 pg (27.0-32.0); Mean Corpuscular Volume 98.8 fL (80-94); Monocyte# 0.76 X10^3/uL; Monocyte% 8.2 % (0-10); NRBC Flagged by Analyzer 0 % (0-5); Neutrophil # 6.01 X10^3/uL (2.7-7.7); Neutrophil % 64.9 % (47-70); Platelet Count 213 K/mm3 (150-450); RBC Distribution Width CV 12.7 % (11.6-14.6); RBC Distribution Width SD 45.5 fl (35.1-43.9); Red Blood Count 4.21 M/mm3 (4.6-6.2); White Blood Count 9.3 K/mm3 (4.4-11.0)
[2024-07-15 10:19] LABS: ALB/GLOB Ratio 0.9 RATIO (0.9-2.4); AST(SGOT) 22 U/L (15-37); Alanine Aminotransfer ALT/SGPT 41 U/L (16-61); Albumin, Serum 3.2 g/dL (3.2-5.0); Alkaline Phosphatase 122 U/L (45-117); Anion Gap 5 (5-15); BUN 17 mg/dL (7-18); BUN/Creat Ratio 17.4 RATIO (10-20); Calcium,Total 8.4 mg/dL (8.5-10.1); Chloride 108 mmol/L (98-107); Creatinine, Serum 0.98 mg/dL (0.70-1.30); EST Glomerular Filtration Rate 81 mL/min (>60); Est Glom Filt Rate - Afr Amer 97 mL/min (>60); Globulin 3.6 g/dL (2.2-4.2); Glucose 118 mg/dL (74-106); Protein, Total 6.8 g/dL (6.4-8.2); Sodium Level 137 mmol/L (136-145); Thyroid Stim Hormone (TSH) 0.518 uIU/mL (0.358-3.740)
[2024-07-15 10:31] LABS: Syphilis Antibodies Non-reactive
[2024-07-15 10:56] LABS: Microalbumin,Random Urine 5.7 mg/L (NO RANGE EST.); Microalbumin:Creatinine Ratio 5.1 mg/g CRE (<30 mg/g CRE)
== END | disposition home or self-care (01) ==
LOC: MFPLAB 08:41
PROVIDERS: PCP Family Medicine; Referring Provider Family Medicine; Visit Provider Family Medicine
DX: I10 Essential (primary) hypertension (principal); M79.2 Neuralgia and neuritis, unspecified
CPT/HCPCS: 36415; 80053; 82043; 82570; 84443; 85025; 86780

== ENCOUNTER → 2024-07-25 | Outpatient (CLI) | payer MEDICARE, SELFPAY ==
--- NOTE | 2024-07-25 07:14 | CT_ITS ---
EXAM: CT CHEST WITH INTRAVENOUS CONTRAST CLINICAL INDICATION: pulmonary nodule, prev smoker, htn TECHNIQUE: Helically acquired images were obtained of the chest with intravenous contrast. This CT exam was performed using one or more of the following dose reduction techniques: automated exposure control, adjustment of the mA and/or kV according to patient size, and/or use of iterative reconstruction technique. CONTRAST: IV 100mL Isovue-370 RADIATION DOSE: CTDIvol = 18.38 mGy, DLP = 748.43 mGy-cm COMPARISON: No relevant prior studies available. FINDINGS: LUNGS AND PLEURAL SPACES: Paraseptal emphysema unchanged. No pneumothorax. No change in the pleural-based nodule right lung apex measuring up to 9 mm maximum dimension. HEART: Coronary artery calcifications. Heart size is normal. No pericardial effusion. MEDIASTINUM: Unremarkable. No mediastinal or hilar adenopathy. Esophagus is unremarkable. No hiatal hernia. THYROID: Unremarkable. No thyroid lesions. BONES/JOINTS: Unremarkable. No suspicious lytic or blastic abnormality. VASCULATURE: See above. CT/Chest WITH Contrast IMPRESSION: 1. No change in the pleural-based nodule right lung apex measuring up to 9 mm maximum dimension. Lung-RADS score: 2 - Benign Appearance or Behavior. Recommend continued annual screening with a low-dose CT (LDCT) in 12 months. 2. Coronary artery disease. Electronically Signed: Herminio Vale MD at 22:23 [facility] ,
== END | disposition home or self-care (01) ==
LOC: CT 07:14
PROVIDERS: PCP Family Medicine; Referring Provider Family Medicine; Visit Provider Family Medicine
DX: R91.1 Solitary pulmonary nodule (principal)
CPT/HCPCS: 71260; Q9967

== ENCOUNTER → 2025-01-06 | Outpatient (CLI) | payer MEDICARE, SELFPAY ==
--- NOTE | 2025-01-06 08:50 | RAD_ITS ---
EXAM: XR Right Hip With Pelvis When Performed, 1 View CLINICAL INDICATION: R HIP/BUTTOCK PAIN. A-TRAUMATIC TECHNIQUE: Frontal view of the right hip with pelvis when performed. COMPARISON: No relevant prior studies available. FINDINGS: BONES/JOINTS: Mild degenerative changes. No acute fracture. No dislocation. SOFT TISSUES: Unremarkable. RAD/HIP, UNI W/ Pelvis 2-3 Views IMPRESSION: Degenerative changes as above. Reading Location: [facility]
== END | disposition home or self-care (01) ==
LOC: MTRAD 08:50
PROVIDERS: PCP Family Medicine; Referring Provider Family Medicine; Visit Provider Family Medicine
DX: M25.551 Pain in right hip (principal)
CPT/HCPCS: 73502

== ENCOUNTER 2025-03-03 09:49 | Emergency (ER) | payer MEDICARE, SELFPAY ==
[2025-03-03 09:50] VITALS: BP 151/96; PULSE 97; RESP 18; TEMP 37.1; O2SAT 97; BMI 44.1
[2025-03-03 10:23] LABS: Hematocrit 45.3 % (40-54); Hemoglobin 15.9 g/dL (13.0-16.5); Immature Granulocytes Count 0.090 X10^3/uL (0.0-0.0); Mean Corp Hgb Conc 35.1 g/dL (32-36); Mean Corpuscular Volume 97.0 fL (80-94); Mean Platelet Vol. 9.7 fl (6.2-12.0); NRBC Flagged by Analyzer 0 % (0-5); Platelet Count 249 K/mm3 (150-450); RBC Distribution Width CV 12.7 % (11.6-14.6); RBC Distribution Width SD 44.8 fl (35.1-43.9); Red Blood Count 4.67 M/mm3 (4.6-6.2); White Blood Count 10.7 K/mm3 (4.4-11.0)
[2025-03-03 10:47] LABS: Mucous, Urine 0 SEEN /hpf (<or=2+); Red Blood Cells-Urine 0 SEEN /hpf (0-5); Squamous Epithelial Cells - UA 0 SEEN /hpf (0-5)
[2025-03-03 10:48] LABS: AST(SGOT) 27 U/L (<=37); Alanine Aminotransfer ALT/SGPT 34 U/L (<=46); Albumin, Serum 4.0 g/dL (3.4-4.8); Alkaline Phosphatase 138 U/L (40-129); Anion Gap 12 (5-15); BUN 19 mg/dL (4-19); BUN/Creat Ratio 19.0 RATIO (10-20); Calcium,Total 9.2 mg/dL (7.6-11.0); Carbon Dioxide 19.9 mmol/L (21.0-32.0); Chloride 105 mmol/L (98-108); Estimated Creatinine Clearance 97.85 ml/min (50-250); Globulin 3.2 g/dL (2.2-4.2); Glucose 124 mg/dL (70-99); Lipase 25 U/L (13-75); Potassium 4.2 mmol/L (3.3-5.1)
[2025-03-03 10:57] LABS: Color, Urine Yellow (Yellow); Glucose, Dipstick Normal (Normal); Ketone-Dipstick 5 mg/dl (Negative); Leukocyte Esterase-Dipstick 25 /ul (Negative); Nitrite-Dipstick Negative (Negative); Occult Blood-Urine Negative /ul (Negative); Protein-Dipstick 30 mg/dl (Negative); Specific Gravity, Urine 1.020 (1.002-1.030)
[2025-03-03 11:13] LABS: Urine Bilirubin Dipstick 1 mg/dL (Negative)
[2025-03-03] MEDS: 0.9% Normal Saline (1000mL) 1,000 ML 999 ML IV (11:23)
[2025-03-03 11:49] VITALS: BP 147/80; PULSE 70; O2SAT 96
--- NOTE | 2025-03-03 11:50 | CT_ITS ---
PROCEDURE: ABDOMEN/PELVIS W IV CONT ONLY 03/03/2025 REASON FOR EXAM: RIGHT LOWER QUADRANT ABDOMINAL PAIN, HX OF APPY TECHNIQUE: Procedure Code: [id number] Modality: CT Procedure: ABDOMEN/PELVIS W IV CONT ONLY Coronal and Sagittal reconstruction series were provided. CONTRAST: Isovue 370 VOLUME: 75 mL One or more dose reduction techniques were used (e.g., Automated exposure control, adjustment of the mA and/or kV according to patient size, use of iterative reconstruction technique. RADIATION DOSE SUMMARY: CTDlvol: 35 mGy DLP: 1297 mGycm COMPARISON: June 24, 2019. Report unavailable for review. FINDINGS: Lung bases: Mild dependent atelectasis Liver: Benign cysts segment 6 of the liver is 2.3 cm. Otherwise unremarkable liver. Gallbladder: Cholecystectomy Spleen: Normal Pancreas: Normal Adrenals: Normal Kidneys: Enlarging hypodense mass at the left lower pole. This is 1.9 x 1.6 cm. On prior was 1.1 x 1.0 cm when measured similarly. No calculus or collecting system dilation seen. Bladder: Normal Reproductive Organs: Dystrophic calcification within the prostate. Bowel: Diarrheal state is present. No bowel wall thickening seen. Small bowel is not dilated. Stomach appears normal. Appendix: Appendectomy Lymph nodes: None appear enlarged. Vasculature: Moderate atherosclerotic plaque without aneurysm. Peritoneum / Retroperitoneum: No free air, free fluid or mass. Bones: Multilevel degenerative disc disease, marginal endplate spurring throughout the lower thoracic and lumbar spine. Facet hypertrophy. CT/Abdomen/Pelvis W IV Cont ONLY IMPRESSION: 1. Cholecystectomy. 2. Simple cyst of the liver. No follow-up required. 3. Appendectomy 4. Diarrheal state. 5. Enlarging mass possibly representing a cyst at the left lower pole. Noneme rgent ultrasound to assess for complexity may be helpful on a nonemergent basis. If this is insufficient, follow-up MRI with co ntrast enhancement could be performed also on a nonemergent basis. 6. Multilevel degenerative disc disease Reading [id number]
--- NOTE | 2025-03-03 12:01 | EDS_ITS ---
HPI History of Present Illness Chief Complaint: Abd Pain Narrative Narrative: Chief complaint and HPI: 69-year-old male with past medical history of HTN, HLD, COPD, chronic back pain presents for evaluation of right lower quadrant pain. Onset of symptoms have been approximately 10 days. States that the right lower quadrant pain radiates into his right groin. Has a history of cholecystectomy and appendectomy. States he has had some associated diarrhea. He saw Dr. Wilson today in the office who sent him to the emergency department. He denies any fever, chills, shortness of breath, chest pain, nausea, vomiting, dysuria, hematuria. States that he has had decreased p.o. intake. No history of inguinal hernias. Review of systems: See HPI Medications: As listed on the chart Allergies: As listed on the chart PFSH: Per chart Vital signs: As listed on the chart. Reviewed. Physical exam: Gen: A&O x3, NAD Head: Normocephalic, atraumatic Eyes: No sclera icterus, conjunctiva clear ENT: Moist mucous membranes Neck: Trachea midline, No JVD CV: RRR, no murmurs, no peripheral edema Resp: Lungs CTA BL, no w/r/c GI: Abd soft, non-distended, tender to palpation in the right lower quadrant, no rebound or rigidity : No CVA tenderness, Circumcised penis. No penile tenderness or discharge. No penile or testicular swelling. Normal lie and position of the testicles. No testicular tenderness, masses, or skin changes. Cremasteric reflexes intact and equal bilaterally. No rashes. No palpable hernias. Musc: Full ROM, no deformity Skin: Warm, dry Neuro: Alert, oriented, grossly intact, sensation intact Psych: Cooperative, appropriate mood and affect [facility] Medical History Primary osteoarthritis, left shoulder Impingement of left shoulder Left shoulder pain Wears glasses Alcohol use History of steroid therapy Arthritis High cholesterol Excessive bleeding Back pain History of hiatal hernia Gastric reflux Former smoker Sleep apnea History of pain when walking History of stress test Hypertension Bilateral primary osteoarthritis of knee Abdominal pain Personal history of colonic polyps GERD with esophagitis JUSTEN (obstructive sleep apnea) COPD (chronic obstructive pulmonary disease) Morbid obesity HLD (hyperlipidemia) HTN (hypertension) Tobacco use ETOH abuse Fall Alcohol intoxication Home Medications ?Medication ?Instructions ?Recorded ?Last Taken ?Type pravastatin 80 mg tablet 80 mg PO QHS 03/02/16 History irbesartan 300 mg tablet 300 mg PO DAILY 06/18/1902/20 04:00 History spironolactone 25 1 tab PO QDAY 04/04/24 Unkno wn History mg-hydrochlorothiazide 25 mg tablet Allergy/AdvReac Type Severity Reaction Status Date / Time No Known Allergies Allergy Verified 03/03/25 09:50 Family History Father Colon cancer Grandmother Heart disease Surgical History Hx of surgical procedure S/P colonoscopy History of esophagogastroduodenoscopy (EGD) S/P laparoscopic cholecystectomy S/P appendectomy Social History Smoking Status: Former smoker alcohol intake: current alcohol intake frequency: a few times a week EXAM Physical Exam Const Vital Signs: 03/03/25 09:50 03/03/25 11:49 03/03/25 13:00 Temperature 98.7 F Temperature Source Oral Pulse Rate 97 70 78 Respiratory Rate 18 Blood Pressure 151/96 H 147/80 H 132/77 H Blood Pressure Mean 114 102 95 Pulse Ox 97 96 100 Oxygen Delivery Method Room Air 03/03/25 14:18 Temperature 98.5 F Temperature Source Pulse Rate 76 Respiratory Rate 16 Blood Pressure 144/78 H Blood Pressure Mean 100 Pulse Ox 95 Oxygen Delivery Method MDM MDM MDM Narrative Medical decision making narrative: 69-year-old male with past medical history of HTN, HLD, COPD, chronic back pain presents for evaluation of right lower quadrant pain. Onset of symptoms have been approximately 10 days. States that the right lower quadrant pain radiates into his right groin. Has a history of cholecystectomy and appendectomy. Sent to the emergency room by primary care physician. Differential diagnosis includes but is not limited to inguinal hernia, urolithiasis, UTI, colitis. NS bolus ordered with abdominal pain workup and CT abdomen pelvis. Patient offered pain medicine but declined. CBC without leukocytosis or anemia. CMP relatively unremarkable. No transaminitis. Lipase unremarkable. UA negative for UTI.CT abdomen pelvis shows simple cyst in the liver. Enlarging mass possibly repr esenting a cyst at the left lower pole. Nonemergent ultrasound to assess for complexity. Multilateral degenerative disc disease. Diarrheal state. At this point in time, no clear etiology to explain patient's right lower quadrant abdominal pain. May be secondary to pain from diarrhea. Given that patient was sent in by Dr. Wilson, I did consult him and patient was discussed. He was updated on the results and the finding. He confirmed understanding. Patient will follow-up in the office. Patient stable to discharge home. Return precautions explained. He confirmed understand the plan. Impression: 1. Right lower quadrant abdominal pain 2. Diarrhea 3. Likely complex cyst of the left kidney Lab Data Labs: Laboratory Results - last 24 hr 03/03/25 03/03/25 10:03 10:44 WBC 10.7 RBC 4.67 Hgb 15.9 Hct 45.3 MCV 97.0 H MCH 34.0 H MCHC 35.1 RDW Std Deviation 44.8 H RDW Coeff of Edu 12.7 Plt Count 249 MPV 9.7 Immature Gran % (Auto) 0.800 Neut % (Auto) 73.6 H Lymph % (Auto) 17.3 L [place] % (Auto) 6.3 Eos % (Auto) 1.4 Baso % (Auto) 0.6 Absolute Neuts (auto) 7.8 H Absolute Lymphs (auto) 1.84 Nucleated RBC % 0 Sodium 137 Potassium 4.2 Chloride 105 Carbon Dioxide 19.9 L Anion Gap 12 BUN 19 Creatinine 1.02 Estim Creat Clear Calc 97.85 Est GFR (MDRD) Non-Af 79 BUN/Creatinine Ratio 19.0 Glucose 124 H Calcium 9.2 Total Bilirubin 0.71 AST 27 ALT 34 Alkaline Phosphatase 138 H Total Protein 7.3 Albumin 4.0 Globulin 3.2 Albumin/Globulin Ratio 1.2 Lipase 25 Urine Color Yellow Urine Clarity Clear Urine pH 5.0 Ur Specific [place] 1.020 Urine Protein 30 H Urine Glucose (UA) Normal Urine Ketones 5 H Urine Occult Blood Negative Urine Nitrite Negative Urine Bilirubin 1 H Urine Urobilinogen 4 H Ur Leukocyte Esterase 25 H Urine RBC 0 SEEN Urine WBC 0-5 SEEN Ur Squamous Epith Cells 0 SEEN Urine Bacteria 0 SEEN Urine Mucus 0 SEEN Radiography Diagnostic Testing: Clinical Impression(s) from Imaging Studies Abdomen/Pelvis CT 03/03/25 11:50 IMPRESSION: 1. Cholecystectomy. 2. Simple cyst of the liver. No follow-up required. 3. Appendectomy 4. Diarrheal state. 5. Enlarging mass possibly representing a cyst at the left lower pole. Nonemergent ultrasound to assess for complexity may be helpful on a nonemergent basis. If this is insufficient, follow-up MRI with contrast enhancement could be performed also on a nonemergent basis. 6. Multilevel degenerative disc disease Reading [id number] Discharge Plan Triage Chief Complaint: Abd Pain ED Provider: Kehinde Varela Dx/Rx/DC Orders Clinical Impression: Abdominal pain Instructions: ED Abdominal Pain Unkn Cause Male... Prescriptions: No Action irbesartan 300 mg tablet 300 mg PO DAILY spironolacton-hydrochlorothiaz 25-25 mg tablet 1 tab PO QDAY pravastatin 80 MG tablet 80 mg PO QHS Primary Care Provider: Saturnino Wilson Referrals: Saturnino Wilson MD [Primary Care Provider] - 3-5 Days Activity Restrictions/Additional Instructions: Follow-up with primary care physician. Return back to ED if symptoms change or worsen. Your CT abdomen pelvis shows an enlarging mass possibly representing a cyst in the left lower pole of the kidney. Nonemergent ultrasound to assess this further. You need to talk to your primary care physician about having this ultrasound performed. No clear reason for your right-sided abdominal pain. Print Language: Malay Disposition Disposition: Home, Self Care Discharge Date/Time: 03/03/25 14:19
[2025-03-03 13:00] VITALS: BP 132/77; PULSE 78; O2SAT 100
[2025-03-03 14:18] VITALS: BP 144/78; PULSE 76; RESP 16; TEMP 36.9; O2SAT 95
== END 2025-03-03 14:19 | disposition home or self-care (01) ==
PROVIDERS: Emergency Provider Surgery; PCP Family Medicine; Visit Provider Surgery
DX: R10.31 Right lower quadrant pain (principal); R19.7 Diarrhea, unspecified; N28.89 Other specified disorders of kidney and ureter; Z87.891 Personal history of nicotine dependence
CPT/HCPCS: 74177; 80053; 81001; 83690; 85025; 96360; 96361; 99282; Q9967; A4216

== ENCOUNTER → 2025-03-11 | Outpatient (CLI) | payer MEDICARE, SELFPAY ==
--- NOTE | 2025-03-11 15:38 | US_ITS ---
PROCEDURE: KIDNEY AND BLADDER 03/11/2025 REASON FOR EXAM: LEFT KIDNEY MASS TECHNIQUE: Procedure Code: USKI Modality: US Procedure: KIDNEY AND BLADDER COMPARISON: Prior CT scan of the abdomen and pelvis dated March 03, 2025. FINDINGS: Kidneys: Normal renal sizes, parenchymal thicknesses, and echotextures. [place]: No hydronephrosis. Cysts or Masses: No definite left renal mass is seen. Other: None RIGHT Kidney Size: 11.7 cm x 5.4 cm x 6.1 cm Cortical Thickness (if discernible): 18 mm (>6mm is normal) LEFT Kidney Size: 11.3 cm x 5.8 cm x 5.4 cm Cortical Thickness (if discernible): 14 mm (>6mm is normal) US/Kidney and Bladder IMPRESSION: No definite left renal mass seen. Reading Location: [id number]
== END | disposition home or self-care (01) ==
LOC: US 15:35
PROVIDERS: PCP Family Medicine; Referring Provider Family Medicine; Visit Provider Family Medicine
DX: N28.89 Other specified disorders of kidney and ureter (principal)
CPT/HCPCS: 76770

== ENCOUNTER → 2025-03-27 | Outpatient (CLI) | payer MEDICARE, SELFPAY ==
--- NOTE | 2025-03-27 14:40 | MRI_ITS ---
PROCEDURE: SPINE THORACIC (ROUTINE) 03/27/2025 REASON FOR EXAM: KNOWN SPINAL STENOSIS W/ HX OF FUSION AND NEW ONSET BILATERAL LEG TECHNIQUE: Procedure Code: MRISPT Modality: MR Procedure: SPINE THORACIC (ROUTINE) Multiplanar and multisequence images were obtained. CONTRAST: None COMPARISON: None available. FINDINGS: The normal thoracic kyphosis is maintained. The thoracic vertebral bodies are normal in alignment. The thoracic vertebral bodies are normal in alignment. There is type 2 Modic endplate changes at T9- T10. The thoracic bone marrow signal is otherwise within normal limits. There is no evidence of thoracic spinal cord signal abnormality. There is dilatation of the central canal along T5 to T11. C7-T1: Right paracentral disc protrusion with indentation of the ventral thecal sac. T3-T4: Small left paracentral disc protrusion indents the left ventral thecal sac. T4-T5: Small left paracentral disc protrusion. T5-T6: Posterior disc osteophyte complex indents the ventral thecal sac. T6-T7: Posterior disc osteophyte complex indents the ventral thecal sac. T7-T8: Posterior disc osteophyte complex indents the ventral thecal sac. T9-T10: Posterior disc osteophyte complex, bilateral facet arthrosis, and ligamentum flavum hypertrophy contribute to moderate spinal canal stenosis. [id number] bilateral neural foraminal narrowing. T10-T11: Posterior disc osteophyte complex, bilateral facet arthrosis, and ligamentum flavum hypertrophy contribute to severe spinal canal stenosis where there is effacement of CSF. MRI/Spine Thoracic (Routine) IMPRESSION: 1. Thoracic spondylosis most marked at T10-T11 where there is severe spinal can al stenosis. No associated edematous spinal cord signal. 2. Long segment mild dilatation of the central canal along T5-T11. In compliance with [place] State Law Act 112, an automated letter has been sent to this patient notifying them that there are findings on this exam that warrant further discussion with their healthcare provider. Reading Location: [id number]
== END | disposition home or self-care (01) ==
LOC: MRI 14:24
PROVIDERS: PCP Family Medicine; Referring Provider Family Medicine; Visit Provider Family Medicine
DX: M47.814 Spondylosis without myelopathy or radiculopathy, thoracic region (principal); M48.04 Spinal stenosis, thoracic region
CPT/HCPCS: 72146

== ENCOUNTER 2025-06-10 10:05 | Day surgery (SDC) | payer MEDICARE, SELFPAY ==
--- NOTE | 2025-06-09 13:55 | H&P.OPEN ---
[facility] - General General Date of Service: 06/10/25 [facility] Narrative MAISHA DESAI, is a 69 M who presents for screening colonoscopy due to history family history colon cancer. Patient's father had colon cancer and was at age 60. Patient's last colonoscopy was in [address] Herbert did recommend 5-year follow-up; previous to that had EGD and colonoscopy in 2019 due to poor prep had a follow-up in 1 year also had a history of tubular adenoma. Patient has bowel movements daily denies any blood. Patient denies any chronic abdominal pain/nausea/vomiting [facility] Medical History Neuropathy Smoker Primary osteoarthritis, left shoulder Impingement of left shoulder Left shoulder pain Wears glasses Alcohol use History of steroid therapy Arthritis High cholesterol Excessive bleeding Back pain History of hiatal hernia Gastric reflux Former smoker Sleep apnea History of pain when walking History of stress test Hypertension Bilateral primary osteoarthritis of knee Abdominal pain Personal history of colonic polyps GERD with esophagitis JUSTEN (obstructive sleep apnea) COPD (chronic obstructive pulmonary disease) Morbid obesity HLD (hyperlipidemia) HTN (hypertension) Tobacco use ETOH abuse Fall Alcohol intoxication Home Medications ?Medication ?Instructions ?Recorded ?Last Taken ?Type pravastatin 80 mg tablet 80 mg PO QHS 03/02/16 06/09/25 History irbesartan 300 mg tablet 300 mg PO DAILY 06/18/19 06/09/25 History spironolactone 25 1 tab PO QDAY 04/04/24 06/09/25 History mg-hydrochlorothiazide 25 mg tablet Allergy/AdvReac Type Severity Reaction Status Date / Time No Known Allergies Allergy Verified 06/08/25 15:17 Family History Father Colon cancer Grandmother Heart disease Surgical History History of laminectomy Hx of surgical procedure S/P colonoscopy History of esophagogastroduodenoscopy (EGD) S/P laparoscopic cholecystectomy S/P appendectomy Social History Smoking Status: Former smoker alcohol intake: current alcohol intake frequency: a few times a week Past Medical/Surgical History Planned Operation Planned Operative Procedure(s): COLONOSCOPY S.O.S: No Previous Hospitalizations/Surgeries HX Hospitalizations: No HX of Surgeries: gallbladder appendectomy knee scope colonoscopy/egd X2 LAST ONE 07/2018 Any Problems With Anesthesia: No You/Your Family Experience Fever (Hyperthermia) With Anes: No Cholinesterase deficiency: No Cardiovascular Hx Chest Pain within Last 2 months: No Hx of Irregular Heartbeat and/or Afib: No Hx Heart Attack: No Hx Congestive Heart Failure: No Hx Rheumatic Fever: No Hx Hypertension: Yes (CONTROLLED WITH MED) Hx Internal Defibrillator: No Hx Pacemaker: No Hx Cardiac Catheterization: No Hx Cardiac Surgery/Stents/Etc.: No Hx Stress Test: Yes (2015) Hx Pain in Legs when Walking/Leg Cramps: No Respiratory Chronic Cough: No HX of Shortness of Breath: No Hoarseness: No Hx Chronic Obstructive Pulmonary Disease (COPD): No Hx Asthma: No Hx Emphysema: No Hx Sleep Apnea: Yes CPAP: Yes BIPAP: No Hx Respiratory Tract Infection/Cold (presently): No Result (for STOP score): Positive Hx Smoking: Yes Smoking Status: Former smoker Gastrointestinal Controlled With Meds: Yes Hx Gastrointestinal Disorders: No Hx Gastrointestinal Bleed: No Hx Ulcer: Yes (in the past) Hx Hiatal Hernia: No Difficulty Chewing/Swallowing: No Special diet followed at home: No Hx Unplanned Weight Loss of 20#: No HX Unplanned Weight Gain of 20#: No Neurological Hx Seizures: No HX Syncope/Blackout Spells/Unconsciousness: No Hx Transient Ischemic Attacks (TIA): No Hx Multiple Sclerosis: No Hx Parkinson's Disease: No Hx Head/Neck Injury: No Hx Headaches: No Hx Back Injury/Pain: Yes (lower back pain at times, DDD) Recent Onset of Speech Difficulty: No Restless Legs: No Does patient have nerve stimulator: No Blood Disorder Hx Leukemia: No Bleeding Tendencies: No Hx Deep Vein Thrombosis: No Hx High Cholesterol: Yes (on med) Blood Transmitted Disease: No Hx Hepatitis: No Hx Cirrhosis: No Hx Anemia: No Hx Blood Disorders: No Reproduction : No Genitourinary Hx Renal Disease: No Hx Dialysis: No Musculoskeletal Hx Arthritis: Yes Hx Rheumatoid Arthritis: No Hx Gout: No Recent Onset of an Orthopedic Problem: No Endocrine Hx Diabetes: No Thyroid Disease: No Hx Steroid Therapy: No Psycho/Social Hx Substance Use: No Hx Alcohol Use: Yes (social) Hx Anxiety: No Hx Depression: No Mental Illness: No Hx Dementia: No Miscellaneous Hx Cancer: No Recent Exposure to Contagious Disease: No Hx of C-Diff: No Any Loose Teeth: No Allergies No Known Allergies Allergy (Verified 06/08/25 15:17) Maternal: Family History Father Colon cancer Grandmother Heart disease No pertinent history Paternal: Family History Father Colon cancer Grandmother Heart disease Cancer Discharge Is Pt Admitted From a Long-Term, or a Half-Way: No After D/C, Where Do you Plan to Go: Return Home From the PAT History Number of Risk Factors: 3 Physical Exam Const alert, oriented x3 and no apparent distress HEENT normocephalic and head/scalp atraumatic Resp normal respiratory effort Cardio regular rate GI soft to palpation and non-tender; Negative for non-distended Palpation: Negative for guarding Extremity no clubbing, cyanosis or edema Skin no rashes or lesions noted Neuro CN's II-XII intact bilaterally Psych mental status grossly normal Assessment & Plan Assessment/Plan (1) Personal history of colonic polyps: (2) Family history of colon cancer in father: Surgery Risks - Colonoscopy I discussed with the patient the risks of the procedure: Yes Risks Include but are not Limited To: Risks include but are not limited to: Bleeding, perforation requiring further surgery, inability to complete colonoscopy requiring barium enema.
[2025-06-10] VITALS (8 sets, daily range): BP systolic 93–137; BP diastolic 67–83; PULSE 76–94; RESP 16–20; TEMP 36.1–36.6; O2SAT 92–99; BMI 46.8
[2025-06-10] MEDS: Lactated Ringers 1,000 ML 15 ML IV (10:36)
--- NOTE | 2025-06-10 11:03 | PCM.PRE.AN2 ---
ASA Classification* ASA Classification ASA Classification: 3 Assessment & Plan Anesthesia* Anesthesia Assessment Anesthesia Assessment: Discussed sedation and/or anesthesia options, risks, benefits, and alternatives with patient/parents/legal guardian/POA. Questions invited. The patient/parents/legal guardian/POA seems to understand and agrees to proceed with anesthesia plan. Reviewed the physical assessment, medical history, allergy history and patient home medications list prior to surgery/procedure/anesthetic and documented any changes. Performed airway and anesthesia risk assessments. Anesthesia Type Anesthesia Type: MAC History Source History Obtained from:: Patient and Chart Anesthesia Focused Assessment* Temperature: 98 F Pulse Rate: 93 Blood Pressure: 132/83 Respiratory Rate: 16 Pulse Ox: 99 Airway Assessment Mouth opens: >3 cm Mallampati Score: II Labs Anesthesia Preop lab: CBC WBC, (4.4-11.0) 10.7 K/mm3 03/03/25, 10:03 RBC, (4.6-6.2) 4.67 M/mm3 03/03/25, 10:03 Hgb, (13.0-16.5) 15.9 g/dL 03/03/25, 10:03 Hct, (40-54) 45.3 % 03/03/25, 10:03 Plt Count, (150-450) 249 K/mm3 03/03/25, 10:03 CHEMISTRY Potassium, (3.3-5.1) 4.2 mmol/L 03/03/25, 10:03 Sodium, (133-145) 137 mmol/L 03/03/25, 10:03 Magnesium, (1.6-2.6) 1.9 mg/dL 04/27/22, 08:35 Phosphorus, (2.5-4.9) 3.5 mg/dL 03/01/18, 18:52 BUN, (4-19) 19 mg/dL 03/03/25, 10:03 Creatinine, (0.70-1.20) 1.02 mg/dL 03/03/25, 10:03 Glucose, (70-99) 124 mg/dL H 03/03/25, 10:03 POC Glucose, (74-106) 111 mg/dL H 05/09/22, 06:21 TSH, (0.358-3.740) 0.518 uIU/mL 07/15/24, 08:43 COAG PT, (11.7-14.9) 13.5 SECONDS 04/19/22, 08:13 Pre-Assessment Diagnosis/Proposed Procedure Planned Operative Procedure(s): COLONOSCOPY Anesthesia History 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 When Was Last Pacemaker Check QUESTION #4 FULL TEXT: You/Your Family Experience fever (hyperthermia) with Anesthesia Last Oral Intake Last Oral intake: Last Oral Intake NPO since 17:00 06/10/25 10:26 Meds taken in AM with sips of No 06/10/25 10:26 water? 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 Has anyone observed you stop breathing during sleep? STOP Results Positive 06/09/25 14:00 QUESTION #5 FULL TEXT : Do you snore loudly (louder than talking or can be heard through closed doors)? 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 Specify any problems Hx of Preganancy in last 3 N/A 06/08/25 15:17 Months Nurse Filling Out Transfusion NBUCHER 06/08/25 15:17 & Questions: Date: 06/08/25 06/08/25 15:17 Time: 15:18 06/08/25 15:17 Patient unable to answer at this time (ie. 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 Hx Now No 06/09/25 14:00 Gestational Age (in weeks): EDC: Hx Hx Para Hx Section SAB No 06/08/25 15:17 Does the father of the baby or his family experience fever w Father of the baby Malignant Hypertension history comment Active Medications Active Medications: Current Medications Generic Name Dose Route Start Last Admin Trade Name Freq PRN Reason Stop Dose Admin Lactated Ringer's 1,000 mls @ 15 mls/hr 06/10/25 10:15 06/10/25 10:36 IV 15 mls/hr .Q48H KAT Administration PFSH Medical History Neuropathy Smoker Primary osteoarthritis, left shoulder Impingement of left shoulder Left shoulder pain Wears glasses Alcohol use History of steroid therapy Arthritis High cholesterol Excessive bleeding Back pain History of hiatal hernia Gastric reflux Former smoker Sleep apnea History of pain when walking History of stress test Hypertension Bilateral primary osteoarthritis of knee Abdominal pain Personal history of colonic polyps GERD with esophagitis JUSTEN (obstructive sleep apnea) COPD (chronic obstructive pulmonary disease) Morbid obesity HLD (hyperlipidemia) HTN (hypertension) Tobacco use ETOH abuse Fall Alcohol intoxication Home Medications ?Medication ?Instructions ?Recorded ?Last Taken ?Type pravastatin 80 mg tablet 80 mg PO QHS 03/02/16 06/09/25 History irbesartan 300 mg tablet 300 mg PO DAILY 06/18/19 06/09/25 History spironolactone 25 1 tab PO QDAY 04/04/24 06/09/25 History mg-hydrochlorothiazide 25 mg tablet Allergy/AdvReac Type Severity Reaction Status Date / Time No Known Allergies Allergy Verified 06/08/25 15:17 Family History Father Colon cancer Grandmother Heart disease Surgical History History of laminectomy Hx of surgical procedure S/P colonoscopy History of esophagogastroduodenoscopy (EGD) S/P laparoscopic cholecystectomy S/P appendectomy Social History Smoking Status: Former smoker alcohol intake: current alcohol intake frequency: a few times a week Addt'l Information Additional Findings: > 4 METs on a stationary bike Review of Systems (Anesthesia) ROS Narrative System reviewed and no additional complaints, except as documented. Physical Exam Const alert and oriented x3 Nutritional Appearance: morbidly obese Resp normal respiratory effort and normal air movement Auscultation: clear to auscultation bilaterally Cardio regular rate and regular rhythm Neuro oriented x3 and moves all extremities
--- NOTE | 2025-06-10 11:30 | COLBX_PTH ---
PATIENT: MAISHA DESAI LOC: EN U#:[id number] AGE/SX: 69/M ROOM: RE06/10/[address]: Dr. Jenny Kern MD : 1955 BED: DIS: 06/10/2025 SPEC #: [id number] RECD: 06/10/25 13:49 STATUS: LEIGH REEleanor #: [id number] RADHA: 06/10/25 11:[address]: Jenny Kern DEPT: SURGICAL PATHOLOGY RECD BY: Marshall Rice ENTERED: 06/10/25 14:14 SP TYPE: COLON BX OTHR DR: Dr. Saturnino Wislon MD Tissues: A - Ascending colon B - Transverse colon C - Sigmoid colon biopsy D - Rectum, NOS Procedures: Surgery Specimen Level IV HEADER OPERATION: Colonoscopy with polypectomy PRE-OP DIAGNOSIS: Personal history of colonic polyps, family history of colon cancer in father TISSUE SUBMITTED: A- Ascending colon polyp x4, B- Transverse colon polyp x2, C- Sigmoid colon polyp x4, D- Rectum polyp x2 MICROSCOPIC DIAGNOSIS A. Colon, ascending, polyp x4, polypectomy: - Tubular adenoma, multiple fragments. - Sessile serrated lesion, multiple fragments. B. Colon, transverse, polyp x2, polypectomy: - Tubular adenoma. - Sessile serrated lesion. C. Colon, sigmoid, polyp x4, polypectomy: - Hyperplastic polyp, multiple fragments. D. Rectum, polyp x2, polypectomy: - Hyperplastic polyp, multiple fragments. - Focal mucosal lymphoid aggregate. MICROSCOPIC DESCRIPTION Slides are reviewed. GROSS DESCRIPTION A. Received in fixative is one container labeled with the patient's name and designated Ascending colon polyp x4. The specimen consists of multiple irregular fragments of benitez tissue that in aggregate measure 2.3 x 0.7 x 0.1 cm, admixed with flocculent material. The specimen is totally submitted in one cassette. B. Received in fixative is one container labeled with the patient's name and designated Transverse colon polyp x2. The specimen consists of multiple irregular fragments of benitez tissue that in aggregate measure 1.2 x 0.4 x 0.1 cm, admixed with flocculent material. The specimen is totally submitted in one cassette. C. Received in fixative is one container labeled with the patient's name and designated Sigmoid colon polyp x4. The specimen consists of multiple irregular fragments of benitez tissue that in aggregate measure 1.1 x 0.5 x 0.1 cm. The specimen is totally submitted in one cassette. D. Received in fixative is one container labeled with the patient's name and designated Rectum polyp x2. The specimen consists of multiple irregular fragments of benitez tissue that in aggregate measure 1 x 0.4 x 0.1 cm. The specimen is totally submitted in one cassette. MI 06/10/2025 CPT:55683p6
--- NOTE | 2025-06-10 13:05 | OP.COLON_ITS ---
Patient Name: Chad Gan Procedure Date: 06/10/2025 12:07 PM Date of : 1955 Age: 69 Procedure: Colonoscopy Indications: High risk colon cancer surveillance: Personal history of colonic polyps, Family history of colon cancer in a first-degree relative before age 60 years Providers: Jenny Kern MD Referring MD: Saturnino Wilson Medicines: Monitored Anesthesia Care Patient Profile: This is a 69 year old male. Last Colonoscopy: July 2019. Complications: No immediate complications. Procedure: Pre-Anesthesia Assessment: - Prior to the procedure, a History and Physical was performed, and patient medications and allergies were reviewed. The patient's tolerance of previous anesthesia was also reviewed. The risks and benefits of the procedure and the sedation options and risks were discussed with the patient. All questions were answered, and informed consent was obtained. Prior Anticoagulants: The patient has taken no anticoagulant or antiplatelet agents. ASA Grade Assessment: Per anesthesia. After reviewing the risks and benefits, the patient was deemed in satisfactory condition to undergo the procedure. After I obtained informed consent, the scope was passed under direct vision. Throughout the procedure, the patient's blood pressure, pulse, and oxygen saturations were monitored continuously. The colonoscope was introduced through the anus and advanced to the cecum, identified by appendiceal orifice and ileocecal valve. The colonoscopy was performed without difficulty. The patient tolerated the procedure well. The quality of the bowel preparation was good. Scope In: 12:18:23 PM Scope Withdrawal Time 0 hours 29 minutes 15 seconds Scope Out: 12:57:18 PM Total Procedure Duration Time 0 hours 38 minutes 55 seconds Findings: The perianal and digital rectal examinations were normal. Eight semi-sessile polyps were found in the sigmoid colon, transverse colon and ascending colon. The polyps were 3 to 6 mm in size. These polyps were removed with a hot snare. Resection and retrieval were complete. Three sessile polyps were found in the rectum. The polyps were less than 5 mm in size. These polyps were removed with a cold biopsy forceps. Resection and retrieval were complete. Multiple small-mouthed diverticula were found in the sigmoid colon and descending colon. The exam was otherwise without abnormality on direct and retroflexion views. Impression: - Eight 3 to 6 mm polyps in the sigmoid colon, in the transverse colon and in the ascending colon, removed with a hot snare. Resected and retrieved. - Three less than 5 mm polyps in the rectum, removed with a cold biopsy forceps. Resected and retrieved. - Diverticulosis in the sigmoid colon and in the descending colon. - The examination was otherwise normal on direct and retroflexion views. Recommendation: - Discharge patient to home. - Resume previous diet. - Continue present medications. - Await pathology results. - Repeat colonoscopy in 3 years for surveillance based on pathology results. Procedure Code(s): --- Professional --- 26075, PT, Colonoscopy, flexible; with removal of tumor(s), polyp(s), or other lesion(s) by snare technique [id number], 59, Colonoscopy, flexible; with biopsy, single or multiple Diagnosis Code(s): --- Professional --- Z86.010, Personal history of colonic polyps D12.5, Benign neoplasm of sigmoid colon D12.4, Benign neoplasm of descending colon D12.3, Benign neoplasm of transverse colon (hepatic flexure or splenic flexure) D12.8, Benign neoplasm of rectum Z80.0, Family history of malignant neoplasm of digestive organs K57.30, Diverticulosis of large intestine without perforation or abscess without bleeding CPT copyright 2021 [employer]. All rights reserved. The codes documented in this report are preliminary and upon music theory teacher review may be revised to meet current compliance requirements. MD Jenny Harper MD 06/10/2025 1:04:25 PM This report has been signed electronically. Number of Addenda: 0 Note Initiated On: 06/10/2025 12:07 PM
--- NOTE | 2025-06-10 13:05 | OP.PROVAT_ITS ---
06/10/2025 Saturnino Wilson [address] [place] [address] Re : Colonoscopy procedure for Chad Gan Dear Dr. Wilson This procedure was performed on Tuesday, June 10, 2025. My impressions and recommendations are as follows: Impressions : - Eight 3 to 6 mm polyps in the sigmoid colon, in the transverse colon and in the ascending colon, removed with a hot snare. Resected and retrieved. - Three less than 5 mm polyps in the rectum, removed with a cold biopsy forceps. Resected and retrieved. - Diverticulosis in the sigmoid colon and in the descending colon. - The examination was otherwise normal on direct and retroflexion views. Recommendations : - Discharge patient to home. - Resume previous diet. - Continue present medications. - Await pathology results. - Repeat colonoscopy in 3 years for surveillance based on pathology results. My findings are described in the full procedure note, which is enclosed. If I can be of further assistance, please feel free to contact me at Doctor phone number(s): , Work: . Sincerely, MD Jenny Harper MD 06/10/2025 1:04:25 PM This report has been signed electronically.
--- NOTE | 2025-06-10 13:19 | PCM.POST.ANE ---
Anesthesia: Postop Eval I Current Vital Signs Temperature: 97 F Pulse Rate: 94 Blood Pressure: 93/72 Respiratory Rate: 16 Pulse Ox: 94 Oxygen Delivery Method: Room Air Assessment Airway patent: Yes Spontaneous unlabored respirations: Yes Mental status: Awake and Calm nausea: No Vomiting: No Anesthesia Complication: No Fluid Hydration Crystalloid volume administer (ml): 600 Total IV fluid infused: 600 Progress Note Anesthesia document: Postop Eval 1 completed: Yes
--- NOTE | 2025-06-10 14:26 | PCM.POSTANE2 ---
Anesthesia Postop Eval I Sum Postop Eval Completion status Anesthesia document: Postop Eval 1 completed: Yes Anesthesia Postop Eval I Summary Anesthesia Postop Eval I Summary: Anesthesia Postop Eval I: Assessment Summary Airway patent Yes 06/10/25 13:20 [email or web address] Spontaneous unlabored Yes 06/10/25 13:20 [email or web address] respirations Mental status Awake,Calm 06/10/25 13:20 [email or web address] nausea No 06/10/25 13:20 [email or web address] Vomiting No 06/10/25 13:20 [email or web address] Anesthesia Postop Eval I: Fluid Summary Crystalloid volume administer 600 06/10/25 13:20 [email or web address] (ml) Colloids volume administered ( ml) Blood Product volume administered (ml) Total IV fluid infused 600 06/10/25 13:20 [email or web address] Anesthesia Postop Eval I: Summary Notes Anesthesia Complication No 06/10/25 13:20 [email or web address] Anesthesia Complication Comment: Post-operative progress note Anesthesia: Postop Eval II Evaluation Mental status: Awake and Calm Pain Level: 0 nausea: No Vomiting: No Complications Anesthesia Complication: No
== END 2025-06-10 13:56 | disposition home or self-care (01) ==
LOC: EN 10:06 → AC 10:08
PROVIDERS: PCP Family Medicine; Referring Provider Family Medicine; Visit Provider Surgery
PROC: 0DJD8ZZ Inspection of Lower Intestinal Tract, Via Natural or Artificial Opening Endoscopic (ICD-10-PCS; CPT 45378; principal; 2025-06-10 11:25)
DX: Z12.11 Encounter for screening for malignant neoplasm of colon (principal); J44.9 Chronic obstructive pulmonary disease, unspecified; E66.01 Morbid (severe) obesity due to excess calories; K57.30 Diverticulosis of large intestine without perforation or abscess without bleeding; Z86.0100 Personal history of colon polyps, unspecified; Z87.891 Personal history of nicotine dependence; I10 Essential (primary) hypertension; E78.00 Pure hypercholesterolemia, unspecified; Z80.0 Family history of malignant neoplasm of digestive organs; Z79.899 Other long term (current) drug therapy; D12.2 Benign neoplasm of ascending colon; D12.3 Benign neoplasm of transverse colon; K63.5 Polyp of colon; K62.1 Rectal polyp; K21.9 Gastro-esophageal reflux disease without esophagitis
CPT/HCPCS: 45385; 45380; 88305; J2405